=== PATIENT | male | born 1940 | race Caucasian/White ===

== ENCOUNTER 2023-06-08 22:11 | Inpatient (IN) | payer MEDICARE, OTHER, SELFPAY ==
[2023-06-08 18:29] VITALS: BP 119/73
--- NOTE | 2023-06-08 19:34 | ED.GENMED ---
History of Present Illness
General
Chief Complaint: Abnormal Lab Value
Source: patient and spouse
Exam Limitations: none
Time Seen by Provider: 06/08/23 18:56
Travel History
Have you had any contact with someone who has COVID-19?: No
Do you have any symptoms of coronavirus? Fever > 100 degrees, chills, cough, shortness of breath, sore throat, loss of taste or smell, muscle aches, or headache?: No
History of Present Illness
History of Present Illness:
This is a 83 year old male that comes in with c/o abnormal labs. States that he has routine labs done every Thursday as he see's his Oncologist on thursday. states that he was called and told that his Hgb is 6 and his Plt were. States that he also
had some bright red rectal bleeding today with his diarrhea. States that he does have hemorrhoids. Denies any fever, chills, chest pain, SOB, abd pain, nasuea, vomiting, headache, dizziness, urinary burning.
Past History
Past History
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 Pathologic rib fractures. ), GERD, Hypercholesterolemia, Hypothyroidism and Other (glaucoma, Anemia, emphysema, Hemorrhoids)
ED Past Surgical History: Orthopedic (Right shoulder surgery) and Other (Hernia, cataracts)
Social History
Tobacco: Former smoker
Alcohol: Occasional
Drug: None
Personal:
Living: with family
Employment: Retired
Family History
Family History: Other (Noncontributory)
Review of Systems
Review of Systems
All Other Systems: ROS reviewed and negative except as documented in HPI and ROS
Constitutional: Reports no symptoms; Denies fever or chills
EENT: Reports no symptoms
Respiratory: Denies cough or trouble breathing
Cardiac: Reports no symptoms; Denies chest pain
ABD/GI: Reports diarrhea and bloody stools (Right red blood); Denies abdominal pain, nausea or vomiting
: Reports no symptoms; Denies dysuria, frequency or urgency
Musculoskeletal: Reports no symptoms
Skin: Reports no symptoms
Neurological: Reports no symptoms; Denies dizzy or headache
Psychiatric: Reports no symptoms
Phy Exam
General Physical Exam
General Presentation: no apparent distress
General age: appears stated age
General Skin: warm, dry and pale
General Habitus: elderly
General Mental: alert
General Hydration: appears well hydrated
ENT Exam
ENT Exam: TM's normal, pharynx normal and neck supple
Eye Exam
Eye Exam: EOMI
Cardiovascular Exam
Cardiovascular Exam: regular rate/rhythm and normal peripheral pulses
Pulmonary Exam
Pulmonary Exam: no respiratory distress, no rales, chest non tender, no crackles, no rhonchi, no wheezing, no cough and decreased breath sounds (Bilaterally at bases)
Gastrointestinal Exam
Gastrointestinal Exam: normal bowel sounds, non tender, soft, no organomegaly, no pulsatile mass, non distended and other (Rectal exam hemorrhoid noted. Hem positive for bright red blood)
Musculoskeletal Exam
Musculoskeletal Exam: full ROM and edema (Slight lower leg edema +1)
Skin Exam
Skin Exam: warm/dry, no rash, pallor and other (slight Petechia noted on the right lower leg)
Psychiatric Exam
Psychiatric Exam: normal mood/affect
Course
Orders/Labs/Results
Orders:
Orders
06/08/23 19:10
* Blood Bank Products Urgent
Blood Bank Products: *Packed RBC Leuko(PRBC's)
Quantity: 2
Transfuse Today: Yes
Reason: Bleeding
06/08/23 19:11
IV Insert/Care/Rem.- Treatment PRN
06/08/23 19:25
Type And Crossmatch Urgent
Complete Blood Count/With Diff Urgent
Comprehensive Metabolic Panel Urgent
Prothrombin Time Urgent
Abnormal Lab Results
06/08/23
19:25
RBC 1.66 L 10^6/uL
(4.70-6.10)
Hgb 6.4 L* g/dL
(13.0-18.0)
Hct 18.2 L* %
(39.0-52.0)
MCV 109.6 H fL
(80.0-94.0)
MCH 38.6 H pg
(27.0-31.0)
RDW 19.5 H %
(11.5-14.5)
Plt Count 13 L* 10^3/uL
(130-400)
MPV 12.2 H fL
(7.4-10.4)
Abs Immat Gran (auto) 0.2 H 10^3/uL
(0-0.05)
Absolute Monos (auto) 0.8 H 10^3/uL
(0.1-0.6)
Absolute Eos (auto) 1.6 H 10^3/uL
(0-0.7)
Immature Gran % 2.1 H %
(0-0.5)
Monocytes % 11.0 H %
(1.7-9.3)
Eosinophils % 22.3 H %
(0-6)
PT 15.7 H Sec
(11.4-14.6)
Carbon Dioxide 21 L mmol/L
(22-30)
BUN 32 H mg/dl
(9-20)
Creatinine 1.4 H mg/dL
(0.7-1.3)
Glucose 117 H mg/dl
(70-99)
Total Protein 6.2 L g/dl
(6.3-8.2)
Albumin 3.0 L g/dl
(3.5-5.0)
06/08/23 19:25
06/08/23 19:25
RBC low, H/H very low, Anemia, thrombocytopenia, pt 15.7 with INR 1.27, Dehydration, Glucose nonfasting, Albumin slightly low.
Vital Signs
Initial and Last Documented VS:
Initial Vital Signs
Pulse Resp BP Pulse Ox
110 18 119/73 92
06/08/23 18:29 06/08/23 18:29 06/08/23 18:29 06/08/23 18:29
Last Documented Vital Signs
Pulse Resp BP Pulse Ox
97 24 109/52 98
06/08/23 20:45 06/08/23 20:45 06/08/23 20:00 06/08/23 20:45
MDM/Problems Addressed
Differential Diagnosis Includes:
Abnormal labs, Anemia,
MDM/Problems Addressed:
This is a 83 year old male that comes in with c/o abnormal labs. States that he has routine labs on Mondays as he see's the Oncologist on Thursday. States that he was called and told that he needed to come to the hospital as his labs were abnormal.
Will check labs and order PRB'C and admit patient.
Chronic conditions affecting care: Cancer
Acute Exacerbation and/or Progression of Chronic Illness: Cancer
*Critical Care Note
Total Time (30-74mins, 75-104mins- exclusive of procedures): Not Applicable
ED Attending Note
-
Portions of this chart may have been created with voice recognition software.� Occasional wrong word or��sound alike� substitutions may have occurred due to the inherent limitations of voice recognition software.
Discharge Plan
Departure
Patient Disposition: Admit
Date of Disposition: 06/08/23
Time of Disposition: 19:49
Admit to: Telemetry
Presentation/result/management discussed w/ accepting MD/DO: Hospitalist
Patient with high blood pressure during this ER visit?: No
Condition: Good
Covid-19: Not Applicable
Discharge Problem:
Thrombocytopenia, Low hemoglobin
Prescriptions:
No Action
latanoprost 1 DROP drops
1 drp BOTH EYES HS
Patient Comments:
both eyes
tamsulosin 0.4 MG capsule
0.8 mg PO HS
Hold Instructions: Resume on 03/20/23.
polyethylene glycol 3350 17 GRAMS powder in packet
17 grams PO DAILYPRN PRN (Reason: constipation)
finasteride 5 MG tablet
5 mg PO HS
sennosides [senna] 8.6 MG tablet
17.2 mg PO BIDPRN PRN (Reason: constipation)
docusate sodium 100 MG capsule
100 mg PO BIDPRN PRN (Reason: constipation)
aspirin 81 MG tablet,delayed release (DR/EC)
81 mg PO DAILY@1700
simvastatin 40 MG tablet
20 mg PO HS
carvedilol 6.25 mg Tablet
6.25 mg PO BID
acyclovir 400 mg tablet
400 mg PO BID
lorazepam 0.5 mg tablet
0.5 mg PO HS
Patient Comments:
06/08/2023: last filled 05/18/23, 60 tabs for 30 days from [facility]#[id number]
gabapentin 300 mg capsule
600 mg PO HS
dorzolamide-timolol 22.3-6.8 mg/mL drops
1 drp BOTH EYES BID
montelukast 10 mg tablet
10 mg PO USEASDIRECTD
Rx Instructions:
TAKE 1 TABLET THE NIGHT BEFORE, THE NIGHT OF, AND THE NIGHT AFTER EACH CHEMO TREATMENT
acetaminophen 325 mg Tablet
650 mg PO Q4HPRN PRN (Reason: mild pain/fever)
acetaminophen 500 mg Tablet
1,000 mg PO DAILYPRN PRN (Reason: prior to chemo)
B-complex with vitamin C Tablet
1 tab PO DAILY
fluticasone propion-salmeterol [Advair Diskus] 250-50 mcg/dose Blister With Device
1 inh INHALATION R BID
bortezomib [Velcade] 3.5 mg Recon Soln
3 mg SC Q21D
Rx Instructions:
gets every 21 days
cholecalciferol (vitamin D3) 25 mcg (1,000 unit) Tablet
25 mcg PO DAILY
calcium carbonate-vitamin D3 [Calcium 600 + D(3)] 600 mg-10 mcg (400 unit) Tablet
1 tab PO BID
ascorbic acid (vitamin C) [Vitamin C] 500 mg tablet
500 mg PO DAILY
Prolia 60 mg/mL Syringe
60 mg SC [id number]
furosemide 40 mg tablet
20 mg PO DAILY PRN (Reason: swelling)
dexamethasone 4 mg tablet
4 mg PO . DIRECTED
Rx Instructions:
Take 4-5 tabs (16-20mg) once before chemo
pantoprazole [Protonix] 40 mg tablet,delayed release (DR/EC)
40 mg PO DAILY@1700
Interventions
Interventions:
*Risk Screen - Suicide Last Done: 06/08/23 18:29
*General Assessment Last Done: 06/08/23 18:29
*Neglect/Abuse Screening Last Done: 06/08/23 18:29
ED- Fall Risk Assessment Last Done: 06/08/23 19:41
*ED COVID-19 Vaccine History Last Done: 06/08/23 18:29
[2023-06-08 19:40] LABS: % Basophils 0.3 % (0-2); % Eosinophils 22.3 % (0-6); % Immature Granulocytes 2.1 % (0-0.5); % Lymphocytes 21.6 % (20.5-51.1); % Neutrophils 42.7 % (42.2-75.2); Absolute Eosinophils 1.6 10^3/uL (0-0.7); Absolute Immature Granulocytes 0.2 10^3/uL (0-0.05); Absolute Lymphocytes 1.6 10^3/uL (1.2-3.4); Absolute Monocytes 0.8 10^3/uL (0.1-0.6); Absolute Neutrophils 3.1 10^3/uL (1.4-6.5); Mean Corp Hgb Conc. 35.2 g/dL (33.0-37.0); Mean Corpuscular Hgb 38.6 pg (27.0-31.0); Mean Corpuscular Volume 109.6 fL (80.0-94.0); Mean Platelet Volume 12.2 fL (7.4-10.4); Nucleated Red Blood Cells % 0 % (-); Red Blood Cell Count 1.66 10^6/uL (4.70-6.10); Red Cell Dist. Width 19.5 % (11.5-14.5); White Blood Cell Count 7.2 10^3/uL (4.8-10.8)
[2023-06-08 19:41] LABS: Hematocrit 18.2 % (39.0-52.0); Hemoglobin 6.4 g/dL (13.0-18.0); Platelet Count 13 10^3/uL (130-400)
[2023-06-08 19:47] LABS: INR 1.27; PT 15.7 Sec (11.4-14.6)
[2023-06-08 19:51] LABS: ALT (SGPT) 14 U/L (0-50); AST (SGOT) 30 U/L (17-59); Alkaline Phosphatase 61 U/L (38-126); Blood Urea Nitrogen 32 mg/dl (9-20); Calcium 8.6 mg/dl (8.4-10.2); Carbon Dioxide 21 mmol/L (22-30); Chloride 106 mmol/L (98-107); Glucose 117 mg/dl (70-99); Potassium 3.9 mmol/L (3.5-5.1); Sodium 136 mmol/L (135-145); Total Bilirubin 0.8 mg/dl (0.2-1.3); Total Protein 6.2 g/dl (6.3-8.2); eGFR 49.25
[2023-06-08 20:00] VITALS: BP 109/52
[2023-06-08 21:01] VITALS: BP 156/118
--- NOTE | 2023-06-08 21:33 | HPS.HSE ---
Addendum entered and electronically signed by Pao Adair DO 06/08/23 22:41:
The patient is seen and examined. I have reviewed the patient with Emily, reviewed and agree with her H & P, assessment and plan of care as per below.
VSS, respiratory status stable , AF
CV RRR, no m/r/g
Lungs CTA b/l no w/r/r
Abd soft, nt/nd
Labs reviewed as per below
Multiple myeloma
Marked anemia and thrombocytopenia, unable to transfuse tonight due to multiple antibodies for which blood bank is sending out more labs/discussing with [facility], and said blood will likely be available between 12 and 48 hours. Discussed with the
patient.
No signs of active bleeding, monitor for bleeding, transfuse platelets if signs or symptoms of bleeding, repeat CBC in am, Hematology consultation placed
Original Note:
Family Physician
-
Family Physician: Ady Diaz
Chief Complaint
-
Abnormal Labs
History of Present Illness
Pt is an 83yo M with a past medical history Multiple Myeloma, HTN, HLD, and hypothyroidism who is presenting to the ED after being called by his oncologist about abnormal lab values. The patient states that he has routine labs drawn weekly and sees
his oncologist every Thursday. He presented with a hemoglobin of 6.8 and thrombocytopenia. The patient also admits to having diarrhea this morning which he noted bright red blood in and states that he has hemorrhoids with occasional blood on toilet
paper. He denies shortness of breath, chest pain or dizziness.
Medical History
Past Medical History
Past Medical History: Reports Other
Additional Past Medical History:
Essential Hypertension
Hyperlipidemia
CKD Stage II
Multiple Myeloma
Chronic Thrombocytopenia
COPD
Lymphedema
Hypothyroidism
BPH
Glaucoma
Past Surgical History: Reports Other
Additional Past Surgical History:
Hernia Repair
Shoulder Surgery
Social History
Tobacco: Non-smoker
Alcohol: None
Drug: None
Family History
Family History: Not pertinent
Allergies / Home Medications
Allergies reflects when Allergies were last updated in [employer].
Home Medications with original date entered in [employer]
Allergy/Medication List:
Allergies
Allergy/AdvReac Type Severity Reaction Status Date / Time
No Known Allergies Allergy Verified 06/08/23 18:33
Home Medications
latanoprost 0.005 % eye drops 1 drp BOTH EYES HS Eye condition 09/09/21
tamsulosin 0.4 mg capsule 0.8 mg PO HS Urinary Issue 09/09/21
docusate sodium 100 mg capsule 100 mg PO BIDPRN PRN constipation 09/19/21
finasteride 5 mg tablet 5 mg PO HS Urinary Issue 09/19/21
polyethylene glycol 3350 17 gram oral powder packet 17 grams PO DAILYPRN PRN constipation 09/19/21
sennosides 8.6 mg tablet (senna) 17.2 mg PO BIDPRN PRN constipation 09/19/21
aspirin 81 mg tablet,delayed release 81 mg PO DAILY@1700 Blood Clot Prevention/Tx 10/16/21
simvastatin 40 mg tablet 20 mg PO HS High Cholesterol 10/16/21
carvedilol 6.25 mg tablet 6.25 mg PO BID Blood Pressure 02/20/22
B-complex with vitamin C 1 tab PO DAILY Supplement 03/14/23
acetaminophen 325 mg tablet 650 mg PO Q4HPRN PRN mild pain/fever 03/14/23
acetaminophen 500 mg tablet 1,000 mg PO DAILYPRN PRN prior to chemo 03/14/23
acyclovir 400 mg tablet 400 mg PO BID prophylaxis for herpes zoster 03/14/23
dorzolamide 22.3 mg-timolol 6.8 mg/mL eye drops 1 drp BOTH EYES BID Eye Condition 03/14/23
gabapentin 300 mg capsule 600 mg PO HS Pain 03/14/23
lorazepam 0.5 mg tablet 0.5 mg PO HS 03/14/23
montelukast 10 mg tablet 10 mg PO USEASDIRECTD Lung/Breathing Issues 03/14/23
ascorbic acid (vitamin C) 500 mg tablet (Vitamin C) 500 mg PO DAILY Supplement 04/18/23
bortezomib 3.5 mg injection powder for solution (Velcade) 3 mg SC Q21D multiple myeloma 04/18/23
calcium carbonate 600 mg-vitamin D3 10 mcg (400 unit) tablet (Calcium 600 + D(3)) 1 tab PO BID Supplement 04/18/23
cholecalciferol (vitamin D3) 25 mcg (1,000 unit) tablet 25 mcg PO DAILY Supplement 04/18/23
denosumab 60 mg/mL subcutaneous syringe (Prolia) 60 mg SC [id number] multiple myeloma 04/18/23
fluticasone 250 mcg-salmeterol 50 mcg/dose blistr powdr for inhalation (Advair Diskus) 1 inh inhalation R BID Lung/Breathing Issues 04/18/23
dexamethasone 4 mg tablet 4 mg PO . DIRECTED 06/08/23
furosemide 40 mg tablet 20 mg PO DAILY PRN swelling 06/08/23
pantoprazole 40 mg tablet,delayed release (Protonix) 40 mg PO DAILY@1700 06/08/23
Review of Systems
-
A 12 point ROS was completed and negative except as noted: Yes
Constitutional: Denies Fever or Chills
Respiratory: Denies Cough or Trouble Breathing
Cardiac: Denies Chest Pain or Palpitations
Abdomen/GI: Reports Diarrhea (One episode this morning); Denies Abdominal Pain, Nausea or Vomiting
Physical Exam
Vital Signs
Vital Signs
Pulse Resp BP Pulse Ox
93 21 156/118 96
06/08/23 21:15 06/08/23 21:15 06/08/23 21:01 06/08/23 21:15
Physical Exam
General: Comfortable and Conversant
HEENT: Anicteric and Moist mucous membranes
Respiratory: Clear and Non Labored Respirations
Cardiac: S1/S2 and Regular Rhythm
GI: Soft and Non Tender
Musculoskeletal: No Clubbing, No Cyanosis and Other (+1 pitting edema bilateral lower extremities)
Skin: Warm and Dry
Neuro: Awake, Alert, Oriented and Nonfocal/grossly intact
Laboratory Results
-
06/08/23 19:25
06/08/23:
Laboratory Results
PT 15.7 Sec (11.4-14.6) H 06/08/23:
INR 1.27 06/08/23:25
Total Bilirubin 0.8 mg/dl (0.2-1.3) 06/08/23:
AST 30 U/L (17-59) 06/08/23:
ALT 14 U/L (0-50) 06/08/23:
Alkaline Phosphatase 61 U/L (38-126) 06/08/23:
Data Reviewed
-
Lab Data: Labs Reviewed by me
Old Records: Reviewed
Impression/Plan
-
Acute on Chronic Anemia
Acute on Chronic Thrombocytopenia
-Consult Oncology/Hematology
-Transfuse 2 units PRBCs
-Recheck Hgb in AM
-Hold aspirin due to worsening thrombocytopenia
Lower Extremity Edema
-Give dose of Lasix between units of blood
CKD Stage II
-Creatinine slightly above baseline, possibly due to mild overload
-Recheck creatinine in AM
Essential Hypertension
-Continue Coreg with hold parameters
Hyperlipidemia
-Continue atorvastatin in place of simvastatin
Multiple Myeloma
-Continue acyclovir for prophylaxis
-Patient maintained on Velcade as outpatient
COPD, no acute exacerbation
-Continue Advair
Neuropathy
-Continue Gabapentin
GERD
-Continue Protonix
BPH
-Continue Flomax and Proscar
Glaucoma
-Continue dorzolamide/timolol
DVT proph: SCDs
Code Status: Full Code
[2023-06-08 22:00] VITALS: BP 198/169
[2023-06-08 22:04] LABS: Iron 176 ug/dl (49-181)
[2023-06-08 22:14] LABS: Percent Saturation 80 % (20-50); Total Iron Binding Capacity 218 ug/dl (261-462)
[2023-06-08 23:07] VITALS: BP 118/68; BMI 24.7
[2023-06-08] MEDS: FLOMAX 0.800000000000000044 MG PO (23:39)
[2023-06-08] MEDS: NEURONTIN 600 MG PO (23:39)
[2023-06-08] MEDS: ATIVAN 0.5 MG PO (23:39)
[2023-06-08] MEDS: LIPITOR 10 MG PO (23:39)
[2023-06-08] MEDS: PROSCAR 5 MG PO (23:39)
[2023-06-08] MEDS: XALATAN OPHTHALMIC SOLUTION 1 DROP BOTH EYES (23:40)
[2023-06-09] VITALS (16 sets, daily range): BP systolic 93–125; BP diastolic 42–64; BMI 24.7
[2023-06-09 00:20] LABS: Folate > 20.0 ng/ml (2.76-20); Vitamin B12 355 pg/ml (239-931)
[2023-06-09 06:20] LABS: Mean Corp Hgb Conc. 33.1 g/dL (33.0-37.0); Mean Corpuscular Hgb 37.3 pg (27.0-31.0); Mean Corpuscular Volume 112.7 fL (80.0-94.0); Mean Platelet Volume 12.6 fL (7.4-10.4); Red Blood Cell Count 1.42 10^6/uL (4.70-6.10); Red Cell Dist. Width 19.4 % (11.5-14.5); White Blood Cell Count 4.9 10^3/uL (4.8-10.8)
[2023-06-09 06:34] LABS: Hemoglobin 5.3 g/dL (13.0-18.0); Platelet Count 11 10^3/uL (130-400)
--- NOTE | 2023-06-09 06:36 | PTCARENOTE ---
Addendum entered by Laurie Francis RN 06/09/23 06:40:
Spoke with Octavia in [facility], no estimated time of arrival for PRBC at this time
Original Note:
KELLIE Rose made aware of critical lab results. No signs of active bleeding.
Awaiting 2 units of PRBC from [facility]
[2023-06-09 06:42] LABS: Blood Urea Nitrogen 31 mg/dl (9-20); Calcium 8.2 mg/dl (8.4-10.2); Carbon Dioxide 23 mmol/L (22-30); Chloride 108 mmol/L (98-107); Estimated Creatinine Clearance 30 ml/min; Glucose 109 mg/dl (70-99); Potassium 3.6 mmol/L (3.5-5.1); Sodium 138 mmol/L (135-145); eGFR 41.96
--- NOTE | 2023-06-09 08:18 | PTCARENOTE ---
assumed care of pt, AOx3, critical HGB and platelets this AM. Attending placing orders for transfer to higher level of care. pt is awake and alert, offers no complaints other than fatigue. obtaining IMU bed
[2023-06-09] MEDS: ADVAIR HFA 115/21 MCG INHALER 2 PUFF INH (08:24)
[2023-06-09 08:55] LABS: INR 1.27; PT 15.7 Sec (11.4-14.6)
[2023-06-09] MEDS: COREG PO ×2 (08:55→19:47)
[2023-06-09 08:56] LABS: APTT 28.3 Sec (23.4-35.0); Fibrinogen 277 MG/DL (199-459)
[2023-06-09] MEDS: VITAMIN D3 (cholecalciferol) 25 MCG PO (08:56)
[2023-06-09] MEDS: OSCAL 500 + D 500 MG PO ×2 (08:56→19:47)
[2023-06-09] MEDS: ZOVIRAX 400 MG PO ×2 (08:56→19:47)
[2023-06-09] MEDS: COSOPT EYE DROPS 1 DROP BOTH EYES ×2 (08:57→19:48)
--- NOTE | 2023-06-09 09:11 | CM ---
Alert awake oriented patient who lives with his Leslie who lives in a 1 story home with 3 step to enter and bed and bathroom on first floor.Spoke with daughter Na for history. He is independent in driving and in all activities of daily
living.He has a transport wheelchair, rollator,and cane.Pt to be transferred to ICU. Na indicates pt will probably go home but unsure on VN acceptance.
[facility] hx / No SNF history
Pharmacy [address]
PCP DR Diaz
PLAN Will depend on hospital course of care.
--- NOTE | 2023-06-09 11:18 | PTCARENOTE ---
Received patient on transfer from [facility] via wheelchair; ambulated without difficulty from w/c to bed. Denies dizziness or shortness of breath. POx 97% on 2l n/c; BP 116/62, HR 91, NSR on monitor. Oriented to room and surroundings; instructed in call
elam system and to not get OOB without assistance. Patient verbalized understanding; no questions at this time. Still await PRBCs.
--- NOTE | 2023-06-09 13:47 | W.PN.HOSP.TC ---
Today's Communication/Plan
-
Awaiting blood products, should be available within the next 12 to 24 hours
Patient otherwise doing relatively well
Appreciate hematology recommendations
Fecal occult blood test
Assessment / Plan
Assessment / Plan
Physical Exam
General: Comfortable and Conversant
HEENT: Normocephalic and Moist mucous membranes
Respiratory: Clear and Non Labored Respirations
Cardiac: S1/S2 and Regular Rhythm
GI: Soft and Non Tender. Positive bowel sounds.
Musculoskeletal: No Clubbing, No Cyanosis and Other (+1 pitting edema bilateral lower extremities)
Skin: Warm and Dry
Neuro: Awake, Alert, Oriented and Nonfocal/grossly intact

Acute on Chronic Anemia
Acute on Chronic Thrombocytopenia
-Consulted Oncology/Hematology, recommendations appreciated
-Order for 2 units PRBCs placed
-Ordered 1 unit of platelets after discussing the details of platelet transfusion (including type of platelets) with Dr. Holt
-Patient was unable to transfuse blood on admission due to multiple antibodies for which blood bank was sending out more labs/discussing with [facility] --> I called Blood Bank this afternoon and they said blood should be ready within the next 12 to
24 hours
-No signs of active bleeding at this time, monitor for bleeding
-Recheck Hgb in AM/monitor CBC
-Hold aspirin due to worsening thrombocytopenia
Lower Extremity Edema
-Give dose of Lasix between units of blood
CKD Stage II
-Creatinine slightly above baseline, possibly due to mild overload
-Recheck creatinine in AM
Essential Hypertension
-Continue Coreg with hold parameters
Hyperlipidemia
-Continue atorvastatin in place of simvastatin
Multiple Myeloma
-Continue acyclovir for prophylaxis
-Patient maintained on Velcade as outpatient
COPD, no acute exacerbation
-Continue Advair
Neuropathy
-Continue Gabapentin
GERD
-Continue Protonix
BPH
-Continue Flomax and Proscar
Glaucoma
-Continue dorzolamide/timolol
DVT proph: SCDs
Code Status: Full Code
Anticipated Discharge: > 48 hours
Subjective/Interval History
-
Date of Service: June 09, 2023
Patient was seen and examined. At the time of patient encounter, he was ambulating in his room with a cane, and denied any significant complaints, except for fatigue.
Objective Data
-
Labs:
Laboratory Results
06/09/23 06/09/23
05:19 08:33
WBC 4.9
Hgb 5.3 L*
Hct 16.0 L*
Plt Count 11 L*
PT 15.7 H
INR 1.27
APTT 28.3
Sodium 138
Potassium 3.6
Chloride 108 H
Carbon Dioxide 23
BUN 31 H
Creatinine 1.6 H
Glucose 109 H
Calcium 8.2 L
Vital Signs:
Vital Signs
Temp Pulse Resp BP Pulse Ox
97.6 F 111 16 99/53 90
06/09/23 11:19 06/09/23 08:29 06/09/23 08:29 06/09/23 07:00 06/09/23 08:29
I&O
06/08/23 06/09/23 06/10/23
06:59 06:59 06:59
Intake Total 240 / 240
Balance 240 / 240
--- NOTE | 2023-06-09 15:07 | PTCARENOTE ---
Platelets ordered by Dr Loera; notified him via tiger text that there is no consent on chart or scanned in to record. Transfusion consent form with patient label at community health program coordinator desk per Dr Loera request. Still await PRBCs.
--- NOTE | 2023-06-09 16:00 | CON.ONC ---
Impression
Impression
Relapsing plasma cell leukemia
Plan
Plan
transfusion support-- SDP for plt count <20--please recheck increment in 30 min after infusion to assure response -- pRBCs to achieve hgb 7-8gm dl--when stable would consider next therapeutic steps
Patient History
History of Present Illness
83yo WM sent to ER for new pancytopenia likely related to POD following cycle #10 05/13/2023 Daratumumab/ Revlimid/ predn in progress of changing to Pomalyst due to refractory cytopenias felt secondary to Revlimid. He cannot recall having received
pRBC transfusions in the past -- he is admitted to ICU for close mnitoring until least incompatible units available.
Mr. Pike was in ER on 08/14/21 with left sided pain that started after he was picking up several heavy bags of mulch. Imaging showed fracture of left 6th and 7th ribs. CBC was notable for mild leukopenia with white count 4.6, platelets 69,000.
He had CT C/A/P that was relatively unremarkable. No lytic bone lesions noted on CT scan. Calcium, creatinine within normal range. hgb mildly low at 11.7 g/dl, normocytic. Pt denied weight loss, excessive fatigue, night sweats. Review of prior labs
show normal platelet count in September 2020 at 180,000.Additional lab work-up included SPEP which showed M spike of 3.1 with both IgG lambda and IgG kappa monoclonal bands, serum free light chains showed a kappa of 187.8, lambda 41.8 with ratio of 4.49,
serum IgG levels elevated at 6871. Beta-2 microglobulin 9.69, hemoglobin was 10.8 g/dL, platelets 49,000, white count was normal at 4.3. ESR elevated at 119, reticulocyte count inappropriately low at 0.6%. Creatinine was 1.72.
Shortly after having lab work done he presented to [facility] on 09/07/11 due to persistent left-sided rib pain. Our team was consulted and lab results were discussed with the patient. Outpatient bone marrow biopsy was arranged and
completed on 09/10/2021, results revealed greater than 90% bone marrow involvement with plasma cells. Peripheral flow cytometry was also significant for 20% plasma cell involvement in the peripheral blood consistent with plasma cell leukemia.
Past-Medical/Surgical History
Glaucoma
High cholesterol
Patient Medication
Medication Instructions Recorded Confirmed Last Taken Type
latanoprost 0.005 % eye drops 1 drp BOTH EYES HS Eye condition 09/09/21 06/08/23 06/07/23 History
tamsulosin 0.4 mg capsule 0.8 mg PO HS Urinary Issue 09/09/21 06/08/23 06/07/23 History
docusate sodium 100 mg capsule 100 mg PO BIDPRN PRN constipation 09/19/21 06/08/23 10/16/21 History
finasteride 5 mg tablet 5 mg PO HS Urinary Issue 09/19/21 06/08/23 06/07/23 History
polyethylene glycol 3350 17 gram 17 grams PO DAILYPRN PRN 09/19/21 06/08/23 Unknown History
oral powder packet constipation
sennosides 8.6 mg tablet (senna) 17.2 mg PO BIDPRN PRN constipation 09/19/21 06/08/23 02/20/22 History
aspirin 81 mg tablet,delayed 81 mg PO DAILY@1700 Blood Clot 10/16/21 06/08/23 06/07/23 History
release Prevention/Tx
simvastatin 40 mg tablet 20 mg PO HS High Cholesterol 10/16/21 06/08/23 06/07/23 History
carvedilol 6.25 mg tablet 6.25 mg PO BID Blood Pressure 02/20/22 06/08/23 06/08/23 History
B-complex with vitamin C 1 tab PO DAILY Supplement 03/14/23 06/08/23 06/08/23 History
acetaminophen 325 mg tablet 650 mg PO Q4HPRN PRN mild 03/14/23 06/08/23 Unknown History
pain/fever
acetaminophen 500 mg tablet 1,000 mg PO DAILYPRN PRN prior to 03/14/23 06/08/23 Unknown History
chemo
acyclovir 400 mg tablet 400 mg PO BID prophylaxis for 03/14/23 06/08/23 06/08/23 History
herpes zoster
dorzolamide 22.3 mg-timolol 6.8 1 drp BOTH EYES BID Eye Condition 03/14/23 06/08/23 06/08/23 History
mg/mL eye drops
gabapentin 300 mg capsule 600 mg PO HS Pain 03/14/23 06/08/23 2 Weeks Ago History
~05/25/23
lorazepam 0.5 mg tablet 0.5 mg PO HS mental health/sleep 03/14/23 06/08/23 06/07/23 History
montelukast 10 mg tablet 10 mg PO USEASDIRECTD 03/14/23 06/08/23 03/12/23 History
Lung/Breathing Issues
ascorbic acid (vitamin C) 500 mg 500 mg PO DAILY Supplement 04/18/23 06/08/23 06/08/23 History
tablet (Vitamin C)
bortezomib 3.5 mg injection powder 3 mg SC Q21D multiple myeloma 04/18/23 06/08/23 2 Weeks Ago History
for solution (Velcade) ~05/25/23
calcium carbonate 600 mg-vitamin 1 tab PO BID Supplement 04/18/23 06/08/23 06/08/23 History
D3 10 mcg (400 unit) tablet
(Calcium 600 + D(3))
cholecalciferol (vitamin D3) 25 25 mcg PO DAILY Supplement 04/18/23 06/08/23 06/08/23 History
mcg (1,000 unit) tablet
denosumab 60 mg/mL subcutaneous 60 mg SC [id number] multiple myeloma 04/18/23 06/08/23 Unknown History
syringe (Prolia)
fluticasone 250 mcg-salmeterol 50 1 inh inhalation R BID 04/18/23 06/08/23 06/08/23 History
mcg/dose blistr powdr for Lung/Breathing Issues
inhalation (Advair Diskus)
dexamethasone 4 mg tablet 4 mg PO . DIRECTED 06/08/23 06/08/23 Unknown History
Anti-Inflammatory
furosemide 40 mg tablet 20 mg PO DAILY PRN swelling 06/08/23 06/08/23 05/31/23 History
pantoprazole 40 mg tablet,delayed 40 mg PO DAILY@1700 06/08/23 06/08/23 06/07/23 History
release (Protonix) Gastrointestinal Issue
Active Medications
Generic Name Dose Route Start Last Admin
Trade Name Freq PRN Reason Stop Dose Admin
Acetaminophen 650 mg 06/08/23 22:56
Acetaminophen 325 Mg Tablet PO 07/06/23 22:55
Q4HPRN PRN
mild pain/fever
Acyclovir Sodium 400 mg 06/09/23 08:00 06/09/23 08:56
Acyclovir Sodium 200 Mg Capsule PO 06/19/23 07:59 400 mg
BID CHIRAG Administration
Atorvastatin Calcium 10 mg 06/08/23 23:15 06/08/23 23:39
Atorvastatin (Lipitor) 10 Mg Tablet PO 07/06/23 23:14 10 mg
HS CHIRAG Administration
Calcium/Vitamin D 500 mg 06/09/23 08:00 06/09/23 08:56
Calcium Carbonate 500 Mg/Vitamin D 5 Mcg (200 Units) Tablet PO 07/07/23 07:59 500 mg
BID CHIRAG Administration
Carvedilol 6.25 mg 06/09/23 08:00 06/09/23 08:55
Carvedilol 6.25 Mg Tablet PO 07/07/23 07:59 Not Given
BID CHIRAG
Cholecalciferol 25 mcg 06/09/23 08:00 06/09/23 08:56
Cholecalciferol (Vitamin D3) 25 Mcg Tablet (1,000 Units) PO 07/07/23 07:59 25 mcg
DAILY CHIRAG Administration
Dorzolamide/Timolol 0 drop 06/09/23 08:00 06/09/23 08:57
Dorzolamide/Timolol (Ophth Soln.) 10 Ml Bottle BOTH EYES 07/07/23 07:59 1 drop
BID CHIRAG Administration
Finasteride 5 mg 06/08/23 22:56 06/08/23 23:39
Finasteride 5 Mg Tablet PO 07/06/23 22:55 5 mg
HS CHIRAG Administration
Furosemide 40 mg 06/08/23 21:29
Furosemide 40 Mg (10 Mg/Ml) 4 Ml Vial IV
ONCE PRN
Give between units of blood
Gabapentin 600 mg 06/08/23 22:56 06/08/23 23:39
Gabapentin 300 Mg Capsule PO 07/06/23 22:55 600 mg
HS CHIRAG Administration
Latanoprost 0 drop 06/08/23 22:56 06/08/23 23:40
Latanoprost 0.005% (Ophthalmic Solution) 2.5 Ml Bottle BOTH EYES 07/06/23 22:55 1 drop
HS CHIRAG Administration
Lorazepam 0.5 mg 06/08/23 22:56 06/08/23 23:39
Lorazepam 0.5 Mg Tablet PO 07/06/23 22:55 0.5 mg
HS CHIRAG Administration
Pantoprazole Sodium 40 mg 06/09/23 17:00
Pantoprazole 40 Mg Delayed Release Tablet PO 07/07/23 16:59
DAILY@1700 CHIRAG
Fluticasone/Salmeterol 2 puff 06/09/23 08:00 06/09/23 08:24
Advair Hfa 115/21 Inhaler INH 07/07/23 07:59 2 puff
R BID CHIRAG Administration
Sodium Chloride 0 flush 06/08/23 23:00
Sodium Chloride 0.9% (Flush) Syringe IV 07/06/23 22:59
PER PROTOCOL CHIRAG
Tamsulosin HCl 0.8 mg 06/08/23 22:56 06/08/23 23:39
Tamsulosin 0.4 Mg Capsule PO 07/06/23 22:55 0.8 mg
HS CHIRAG Administration
Review of Systems
-
History Source: Patient
All Other Systems: Reviewed and Negative (other than for overwhelming fatigue w/o overt signs of bleeding)
Physical Exam
-
General: Appears Chronically Ill
HEENT: Moist Mucous Membranes
Cardiology: Normal Sinus Rhythm
Pulmonary: Clear
GI: Soft and Flat
Musculoskeletal: No Clubbing, No Cyanosis and No Edema
Labs
Lab Results
WBC 4.9 10^3/uL (4.8-10.8) 06/09/23 05:19
RBC 1.42 10^6/uL (4.70-6.10) L 06/09/23 05:19
Hgb 5.3 g/dL (13.0-18.0) L* 06/09/23 05:19
Hct 16.0 % (39.0-52.0) L* 06/09/23 05:19
MCV 112.7 fL (80.0-94.0) H 06/09/23 05:19
MCH 37.3 pg (27.0-31.0) H 06/09/23 05:19
MCHC 33.1 g/dL (33.0-37.0) 06/09/23 05:19
RDW 19.4 % (11.5-14.5) H 06/09/23 05:19
Plt Count 11 10^3/uL (130-400) L* 06/09/23 05:19
MPV 12.6 fL (7.4-10.4) H 06/09/23 05:19
Abs Immat Gran (auto) 0.2 10^3/uL (0-0.05) H 06/08/23 19:25
Absolute Neuts (auto) 3.1 10^3/uL (1.4-6.5) 06/08/23 19:25
Absolute Lymphs (auto) 1.6 10^3/uL (1.2-3.4) 06/08/23 19:25
Absolute Monos (auto) 0.8 10^3/uL (0.1-0.6) H 06/08/23 19:25
Absolute Eos (auto) 1.6 10^3/uL (0-0.7) H 06/08/23 19:25
Absolute Basos (auto) 0.0 10^3/uL (0-0.2) 06/08/23 19:25
Immature Gran % 2.1 % (0-0.5) H 06/08/23 19:25
Neutrophils % 42.7 % (42.2-75.2) 06/08/23:
Lymphocytes % 21.6 % (20.5-51.1) 06/08/23:
Monocytes % 11.0 % (1.7-9.3) H 06/08/23 19:25
Eosinophils % 22.3 % (0-6) H 06/08/23 19:25
Basophils % 0.3 % (0-2) 06/08/23 19:
Creatinine 1.6 mg/dL (0.7-1.3) H 06/09/23 05:19
Vital Signs
Vital Signs
Temp Pulse Resp BP Pulse Ox
97.8 F 84 16 99/54 94
06/09/23 15:56 06/09/23 14:00 06/09/23 14:00 06/09/23 14:00 06/09/23 14:00
[2023-06-09] MEDS: PROTONIX 40 MG PO (17:21)
[2023-06-09] MEDS: ADVAIR HFA 115/21 MCG INHALER INH (19:35)
[2023-06-09] MEDS: XALATAN OPHTHALMIC SOLUTION 1 DROP BOTH EYES (19:48)
--- NOTE | 2023-06-09 20:31 | PTCARENOTE ---
Received pt from [facility]. Pt is AAOx3, BARBRA. NSR on the monitor. On 2L NC O2 sat 95%, lungs diminished. BRPx1. Awaiting blood from blood bank. Pt is laying comfortable in bed with call elam in reach.
[2023-06-09] MEDS: FLOMAX 0.800000000000000044 MG PO (21:51)
[2023-06-09] MEDS: LIPITOR 10 MG PO (21:52)
[2023-06-09] MEDS: ATIVAN 0.5 MG PO (21:52)
[2023-06-09] MEDS: NEURONTIN 600 MG PO (21:52)
[2023-06-09] MEDS: PROSCAR 5 MG PO (21:52)
[2023-06-10] VITALS (21 sets, daily range): BP systolic 91–126; BP diastolic 49–78; BMI 25.1
--- NOTE | 2023-06-10 05:16 | PTCARENOTE ---
Blood bank called PRBCs arrived, least incompatible blood release form needs to be signed prior to PRBCs being released. KELLIE Rich notified, release form signed and sent back to blood bank.
--- NOTE | 2023-06-10 06:02 | PTCARENOTE ---
1st unit of PRBCs infusing. 15 min VS check complete, pt tolerating transfusion.
[2023-06-10] MEDS: COSOPT EYE DROPS 1 DROP BOTH EYES ×2 (08:07→20:13)
[2023-06-10] MEDS: ZOVIRAX 400 MG PO ×2 (08:12→20:12)
[2023-06-10] MEDS: VITAMIN D3 (cholecalciferol) 25 MCG PO (08:12)
[2023-06-10] MEDS: OSCAL 500 + D 500 MG PO ×2 (08:12→20:12)
[2023-06-10] MEDS: COREG PO ×2 (08:15→20:14)
[2023-06-10] MEDS: ADVAIR HFA 115/21 MCG INHALER INH ×2 (08:23→19:31)
--- NOTE | 2023-06-10 10:14 | W.PN.ONC2 ---
Today's Communication / Plan
-
Await F/U CBC post transfusions.
Impression
Impression
Relapsing plasma cell leukemia
multiple antibodies requiring [place] transfusion support and delays
Plan
Plan
transfusion support-- SDP for plt count <20--please recheck increment in 30 min after infusion to assure response -- pRBCs to achieve hgb 7-8gm dl--when stable would consider next therapeutic steps
Subjective/Objective
Chief Complaint
ACS Heme Onc
Subjective
Feels fine. Getting PRBC transfusion. No bleeding.
Vital Signs:
Vital Signs
Temp Pulse Resp BP Pulse Ox
97.7 F 86 27 109/63 97
06/10/23 09:17 06/10/23 10:10 06/10/23 10:10 06/10/23 10:10 06/10/23 10:10
Lab Results:
Laboratory Data
WBC 4.9 10^3/uL (4.8-10.8) 06/09/23 05:19
Hgb 5.3 g/dL (13.0-18.0) L* 06/09/23 05:19
Plt Count 11 10^3/uL (130-400) L* 06/09/23 05:19
PT 15.7 Sec (11.4-14.6) H 06/09/23 08:33
INR 1.27 06/09/23 08:33
APTT 28.3 Sec (23.4-35.0) 06/09/23 08:33
eGFR 41.96 06/09/23 05:19
Physical Exam
HEENT: No Jaundice
Cardiology: S1 and S2
Pulmonary: Clear
--- NOTE | 2023-06-10 11:37 | PTCARENOTE ---
The first of two units of PRBC concluded infusing while I assumed care this AM 06/10. Second unit infused without difficulty. Pt V/S stable throughout infusion. Pt ordered SCDs, RN promoted wearing them however Pt refused, Pt was educated upon
reasoning for device. Pt currently AOAx4, resting in bed and watching tv, consumed 95% of breakfast. Please see worklist for full Pt assessment. Pt also reminded several times to notify staff before ambulating to the restroom for assistance, however
Pt has made multiple attempts to stand at bedside prior to notifying staff, also during blood infusion. Bed alarm activated for safety.
[2023-06-10 15:03] LABS: % Basophils 0.2 % (0-2); % Eosinophils 22.4 % (0-6); % Immature Granulocytes 4.4 % (0-0.5); % Lymphocytes 21.4 % (20.5-51.1); % Monocytes 9.7 % (1.7-9.3); % Neutrophils 41.9 % (42.2-75.2); ALT (SGPT) 13 U/L (0-50); AST (SGOT) 22 U/L (17-59); Absolute Eosinophils 1.3 10^3/uL (0-0.7); Absolute Immature Granulocytes 0.3 10^3/uL (0-0.05); Absolute Lymphocytes 1.3 10^3/uL (1.2-3.4); Absolute Monocytes 0.6 10^3/uL (0.1-0.6); Absolute Neutrophils 2.5 10^3/uL (1.4-6.5); Albumin 2.9 g/dl (3.5-5.0); Alkaline Phosphatase 63 U/L (38-126); Blood Urea Nitrogen 23 mg/dl (9-20); Calcium 8.3 mg/dl (8.4-10.2); Carbon Dioxide 24 mmol/L (22-30); Chloride 109 mmol/L (98-107); Estimated Creatinine Clearance 35 ml/min; Glucose 139 mg/dl (70-99); Hematocrit 21.9 % (39.0-52.0); Mean Corp Hgb Conc. 34.2 g/dL (33.0-37.0); Mean Corpuscular Hgb 33.2 pg (27.0-31.0); Mean Corpuscular Volume 96.9 fL (80.0-94.0); Mean Platelet Volume 11.4 fL (7.4-10.4); Nucleated Red Blood Cells % 0 % (-); Potassium 3.8 mmol/L (3.5-5.1); Red Blood Cell Count 2.26 10^6/uL (4.70-6.10); Sodium 136 mmol/L (135-145); Total Bilirubin 0.7 mg/dl (0.2-1.3); Total Protein 6.1 g/dl (6.3-8.2); White Blood Cell Count 5.9 10^3/uL (4.8-10.8); eGFR 49.25
[2023-06-10 15:10] LABS: Hemoglobin 7.5 g/dL (13.0-18.0)
[2023-06-10 15:11] LABS: Platelet Count 28 10^3/uL (130-400)
[2023-06-10 16:25] LABS: Anisocytosis 1+; Macrocytosis 1+; Normal RBC Morphology No
[2023-06-10 16:26] LABS: Ovalocytes Slight; Poikilocytosis Slight
[2023-06-10] MEDS: PROTONIX 40 MG PO (18:01)
--- NOTE | 2023-06-10 18:59 | PTCARENOTE ---
Follow up h&h post transfusion7.7/21.[address] Loera notified via tiger text.
--- NOTE | 2023-06-10 19:42 | W.PN.HOSP.TC ---
Today's Communication/Plan
-
Platelets and RBCs transfused with good improvement in the Hgb and platelets
Assessment / Plan
Assessment / Plan
Physical Exam
General: Comfortable and Conversant
HEENT: Normocephalic and Moist mucous membranes
Respiratory: Clear and Non Labored Respirations
Cardiac: S1/S2 and Regular Rhythm
GI: Soft and Non Tender. Positive bowel sounds.
Musculoskeletal: No Clubbing, No Cyanosis and Other (+1 pitting edema bilateral lower extremities)
Skin: Warm and Dry
Neuro: Awake, Alert, Oriented and Nonfocal/grossly intact

Acute on Chronic Anemia
Acute on Chronic Thrombocytopenia
-Consulted Oncology/Hematology, recommendations appreciated
-Order for 2 units PRBCs placed: 2 units of PRBCs transfused on June 10, 2023
-Ordered 1 unit of platelets after discussing (on 06/09/23) the details of platelet transfusion (including type of platelets) with Dr. Holt: 1 unit of platelets transfused on 06/09/23
-Patient was unable to transfused blood right away on admission due to multiple antibodies for which blood bank was sending out more labs/discussing with [place]
-No signs of active bleeding at this time, monitor for bleeding
-Recheck Hgb in AM/monitor CBC
-Hold aspirin due to thrombocytopenia
Lower Extremity Edema
-Can give dose of Lasix between units of blood if needed
CKD Stage II
-Creatinine slightly above baseline, possibly due to mild overload
-Recheck creatinine in AM
Essential Hypertension
-Continue Coreg with hold parameters
Hyperlipidemia
-Continue atorvastatin in place of simvastatin
Multiple Myeloma
-Continue acyclovir for prophylaxis
-Patient maintained on Velcade as outpatient
COPD, no acute exacerbation
-Continue Advair
Neuropathy
-Continue Gabapentin
GERD
-Continue Protonix
BPH
-Continue Flomax and Proscar
Glaucoma
-Continue dorzolamide/timolol
DVT proph: SCDs
Code Status: Full Code
Anticipated Discharge: > 48 hours
Subjective/Interval History
-
Date of Service: June 10, 2023
Patient was seen and examined. He mentioned that he was doing fine, and denied dizziness, chest pain or shortness of breath.
Objective Data
-
Labs:
Laboratory Results
06/10/23
14:41
WBC 5.9
Hgb 7.5 L D
Hct 21.9 L
Plt Count 28 L* D
Sodium 136
Potassium 3.8
Chloride 109 H
Carbon Dioxide 24
BUN 23 H
Creatinine 1.4 H
Glucose 139 H
Calcium 8.3 L
Total Bilirubin 0.7
AST 22
ALT 13
Alkaline Phosphatase 63
Vital Signs:
Vital Signs
Temp Pulse Resp BP Pulse Ox
98.7 F 96 22 126/69 98
06/10/23 15:13 06/10/23 18:00 06/10/23 18:00 06/10/23 18:00 06/10/23 18:00
I&O
06/09/23 06/10/23 06/11/23
06:59 06:59 06:59
Intake Total 240 / 240 1624 / 1624 1060 / 1060
Output Total 850 / 850 300 / 300
Balance 240 / 240 774 / 774 760 / 760
[2023-06-10] MEDS: PROSCAR 5 MG PO (20:12)
[2023-06-10] MEDS: XALATAN OPHTHALMIC SOLUTION 1 DROP BOTH EYES (20:12)
[2023-06-10] MEDS: FLOMAX 0.800000000000000044 MG PO (20:12)
[2023-06-10] MEDS: LIPITOR 10 MG PO (20:12)
[2023-06-10] MEDS: ATIVAN 0.5 MG PO (20:12)
[2023-06-10] MEDS: NEURONTIN 600 MG PO (20:12)
[2023-06-11] VITALS (30 sets, daily range): BP systolic 90–128; BP diastolic 46–96; PULSE 96–97; O2SAT 96–97; BMI 25.0
[2023-06-11 03:51] LABS: Hemoglobin 7.2 g/dL (13.0-18.0); Mean Corp Hgb Conc. 34.3 g/dL (33.0-37.0); Mean Corpuscular Hgb 33.2 pg (27.0-31.0); Mean Corpuscular Volume 96.8 fL (80.0-94.0); Mean Platelet Volume 11.5 fL (7.4-10.4); Red Blood Cell Count 2.17 10^6/uL (4.70-6.10); Red Cell Dist. Width 27.2 % (11.5-14.5); White Blood Cell Count 5.6 10^3/uL (4.8-10.8)
[2023-06-11 04:03] LABS: Platelet Count 18 10^3/uL (130-400)
[2023-06-11 04:18] LABS: Blood Urea Nitrogen 22 mg/dl (9-20); Calcium 8.2 mg/dl (8.4-10.2); Carbon Dioxide 25 mmol/L (22-30); Chloride 111 mmol/L (98-107); Estimated Creatinine Clearance 35 ml/min; Glucose 104 mg/dl (70-99); Potassium 3.8 mmol/L (3.5-5.1); Sodium 138 mmol/L (135-145); eGFR 49.25
--- NOTE | 2023-06-11 04:31 | W.PN.UPDATE ---
Update Note
Progress Note Update
Morning labs: platelets 18, order placed to transfuse 1 unit platelets.
--- NOTE | 2023-06-11 04:47 | PTCARENOTE ---
AM platelets 18. order caller provider made aware and ordered one unit platelets. [facility] that platelets will be 4 + hours before delivered.
--- NOTE | 2023-06-11 06:55 | W.PN.ONC2 ---
Today's Communication / Plan
-
Transfuse PRBC x 1 and PLT x 1 and then D/C
Impression
Impression
Relapsing plasma cell leukemia
multiple antibodies requiring [place] transfusion support and delays (2* daratumumab)
Plan
Plan
For PLT tnfx today for PLT = 18K. Will also order 1 more unit PRBC for HgB 7.2.
Hopefully he will be able to get transfusions today and can be discharged following transfusions. He is asymptomatic.
F/U Dr. Gardiner to resume low dose Revlimid + Gretel as outpatient
Subjective/Objective
Chief Complaint
ACS Heme Onc
Subjective
Feels well. Wants to go home. No F/Z or bleeding.
Vital Signs:
Vital Signs
Temp Pulse Resp BP Pulse Ox
98.4 F 92 18 124/69 95
06/11/23 02:50 06/11/23 06:00 06/11/23 06:00 06/11/23 06:00 06/11/23 06:00
Lab Results:
Laboratory Data
WBC 5.6 10^3/uL (4.8-10.8) 06/11/23 03:26
Hgb 7.2 g/dL (13.0-18.0) L 06/11/23 03:26
Plt Count 18 10^3/uL (130-400) L* D 06/11/23 03:26
PT 15.7 Sec (11.4-14.6) H 06/09/23 08:33
INR 1.27 06/09/23 08:33
APTT 28.3 Sec (23.4-35.0) 06/09/23 08:33
eGFR 49.25 06/11/23 03:26
Physical Exam
HEENT: No Jaundice
Cardiology: S1 and S2
Pulmonary: Clear
Extremities: No C/C/E
[2023-06-11] MEDS: ADVAIR HFA 115/21 MCG INHALER INH ×2 (07:44→20:30)
[2023-06-11] MEDS: ZOVIRAX 400 MG PO ×2 (09:18→20:21)
[2023-06-11] MEDS: VITAMIN D3 (cholecalciferol) 25 MCG PO (09:18)
[2023-06-11] MEDS: COREG PO (09:18)
[2023-06-11] MEDS: OSCAL 500 + D 500 MG PO ×2 (09:18→20:22)
[2023-06-11] MEDS: COSOPT EYE DROPS 1 DROP BOTH EYES (09:19)
[2023-06-11 10:19] LABS: Lactic Acid 1.4 mmol/L (0.7-2.0)
[2023-06-11 10:31] LABS: NT-proBNP 613 pg/ml; Troponin I < 0.012 ng/ml
--- NOTE | 2023-06-11 11:42 | PTCARENOTE ---
Patients pulse ox 88% on room air this morning, nonproductive cough. Pulse ox 95% on 2 liters via nasal cannula. Patient denying pain or shortness of breath when asked, dyspnea on exertion. Covid and flu swab sent. Patient had a brown/green formed
stool this morning, heme negative. Third unit of PRBCs infusing at this time. Platelets pending. Patient is tolerating blood transfusion at this time bp 108/65 93, pulse ox 95% on 2 liters.
--- NOTE | 2023-06-11 12:13 | W.PN.HOSP.TC ---
Addendum entered and electronically signed by Jim Loera MD 06/11/23 15:20:
Dr. Light of gastroenterology said no reason from GI standpoint to see the patient at this time for any possible GI bleeding source, if patient's Hgb keeps dropping even after transfusion, then will consult GI and may need to consider CTA abdomen.
Original Note:
Today's Communication/Plan
-
Additional PRBC and Platelets transfusion ordered
Dyspnea, Hypoxia: ordered tests as below
Assessment / Plan
Assessment / Plan
Physical Exam
General: Comfortable and Conversant
HEENT: Normocephalic and Moist mucous membranes
Respiratory: Clear and Non Labored Respirations. On nasal cannula oxygen.
Cardiac: S1/S2 and Regular Rhythm
GI: Soft and Non Tender. Positive bowel sounds.
Musculoskeletal: No Clubbing, No Cyanosis and Other (+1 pitting edema bilateral lower extremities)
Skin: Warm and Dry
Neuro: Awake, Alert, Oriented and Nonfocal/grossly intact

Acute on Chronic Anemia
Acute on Chronic Thrombocytopenia
-Consulted Oncology/Hematology, recommendations appreciated
-Order for 2 units PRBCs placed: 2 units of PRBCs transfused on June 10, 2023
-Ordered 1 unit of platelets after discussing (on 06/09/23) the details of platelet transfusion (including type of platelets) with Dr. Holt: 1 unit of platelets transfused on 06/09/23
-Additional PRBC and Platelets ordered for transfusion on 06/11/23 due to dropping Hgb and platelets
-Patient was unable to transfused blood right away on admission due to multiple antibodies for which blood bank was sending out more labs/discussing with [place]
-No signs of active bleeding at this time, monitor for bleeding
-Consulted gastroenterology, recommendations appreciated
-Recheck Hgb in AM/monitor CBC
-Hold aspirin due to thrombocytopenia
Dyspnea
Hypoxia
-Ordered CXR, proBNP, EKG, echocardiogram and troponins
-If above tests are unrevealing, and if symptoms unresolved with blood transfusion, may need to consult pulm and consider V/Q scan to check for PE
Lower Extremity Edema
-Can give dose of Lasix between units of blood if needed
CKD Stage II
-Creatinine slightly above baseline, possibly due to mild overload
-Recheck creatinine in AM
-Will consider nephrology consultation
Essential Hypertension
-Continue Coreg with hold parameters
Hyperlipidemia
-Continue atorvastatin in place of simvastatin
Multiple Myeloma
-Continue acyclovir for prophylaxis
-Patient maintained on Velcade as outpatient
COPD, no acute exacerbation
-Continue Advair
Neuropathy
-Continue Gabapentin
GERD
-Continue Protonix
BPH
-Continue Flomax and Proscar
Glaucoma
-Continue dorzolamide/timolol
DVT proph: SCDs
Code Status: Full Code
06/11/23: Discussed case with patient's daughter, Na.
Anticipated Discharge: 24 - 48 hours
Subjective/Interval History
-
Date of Service: June 11, 2023
Patient was seen and examined. He denied any chest pain or shortness of breath, however he did appear short of breath and continued to need oxygen.
Objective Data
-
Labs:
Laboratory Results
06/11/23
03:26
WBC 5.6
Hgb 7.2 L
Hct 21.0 L
Plt Count 18 L* D
Sodium 138
Potassium 3.8
Chloride 111 H
Carbon Dioxide 25
BUN 22 H
Creatinine 1.4 H
Glucose 104 H
Calcium 8.2 L
Vital Signs:
Vital Signs
Temp Pulse Resp BP Pulse Ox
98 F 95 22 113/62 95
06/11/23 11:48 06/11/23 11:48 06/11/23 11:48 06/11/23 11:48 06/11/23 11:48
I&O
06/10/23 06/11/23 06/12/23
06:59 06:59 06:59
Intake Total 1624 / 1624 1060 / 1060 120 / 120
Output Total 850 / 850 900 / 900
Balance 774 / 774 160 / 160 120 / 120
[2023-06-11 12:36] LABS: COVID-19 Antigen Negative (Negative)
[2023-06-11 16:03] LABS: Troponin I < 0.012 ng/ml
[2023-06-11] MEDS: PROTONIX 40 MG PO (16:16)
--- NOTE | 2023-06-11 17:26 | CM ---
Patient with Hx Multiple Myeloma on chemo with Dx Acute on Chronic Anemia, Acute on Chronic Thrombocytopenia, Relapsing plasma cell leukemia. O2 2L. Receiving transfusions with PRBCs & platelets. Receiving IV Lasix. PT & OT 06/11; HH vs no needs.
Attempted to meet with patient who was unavailable in bathroom. Met with and spoke with daughter Na, who is CM here at ; they say the patient will want to return home and will not want VN. He is eager to go home.
No CM d/c needs identified.
Plan home.
--- NOTE | 2023-06-11 17:50 | PTCARENOTE ---
Patient was found in shower by RN. Patient was irritable with nursing staff and refused to listen to safety concerns, yelling at nurse. Male attendant assisted patient with shower and patient was safely dressed and placed back in bed. Bed alarm on
due to fall risk.
--- NOTE | 2023-06-11 19:30 | PTCARENOTE ---
Patient received one unit of PRBCs and platelets this shift. tolerated with no reaction.
[2023-06-11] MEDS: FLOMAX 0.800000000000000044 MG PO (20:21)
[2023-06-11] MEDS: NEURONTIN 600 MG PO (20:21)
[2023-06-11] MEDS: PROSCAR 5 MG PO (20:21)
[2023-06-11] MEDS: ATIVAN 0.5 MG PO (20:21)
[2023-06-11] MEDS: LIPITOR 10 MG PO (20:22)
[2023-06-11] MEDS: COREG 6.25 MG PO (20:22)
[2023-06-11] MEDS: XALATAN OPHTHALMIC SOLUTION 1 DROP BOTH EYES (20:22)
[2023-06-11] MEDS: COSOPT EYE DROPS BOTH EYES (20:23)
[2023-06-11 23:52] LABS: Troponin I < 0.012 ng/ml
[2023-06-12] VITALS (14 sets, daily range): BP systolic 90–136; BP diastolic 47–97; BMI 25.1
[2023-06-12 05:39] LABS: Hematocrit 23.1 % (39.0-52.0); Mean Corp Hgb Conc. 34.6 g/dL (33.0-37.0); Mean Corpuscular Hgb 33.5 pg (27.0-31.0); Mean Corpuscular Volume 96.7 fL (80.0-94.0); Mean Platelet Volume 11.3 fL (7.4-10.4); Red Blood Cell Count 2.39 10^6/uL (4.70-6.10); Red Cell Dist. Width 25.1 % (11.5-14.5); White Blood Cell Count 5.8 10^3/uL (4.8-10.8)
[2023-06-12 05:58] LABS: Platelet Count 19 10^3/uL (130-400)
--- NOTE | 2023-06-12 06:03 | W.PN.UPDATE ---
Update Note
Progress Note Update
Morning labs: platelets 19, order placed to transfuse 1 unit platelets.
[2023-06-12 06:11] LABS: Troponin I < 0.012 ng/ml
[2023-06-12 06:21] LABS: Blood Urea Nitrogen 21 mg/dl (9-20); Calcium 8.1 mg/dl (8.4-10.2); Carbon Dioxide 26 mmol/L (22-30); Chloride 110 mmol/L (98-107); Estimated Creatinine Clearance 41 ml/min; Glucose 96 mg/dl (70-99); Potassium 3.6 mmol/L (3.5-5.1); Sodium 138 mmol/L (135-145); eGFR 59.26
--- NOTE | 2023-06-12 06:26 | PTCARENOTE ---
Cared for pt overnight. aaox3, pleasant, eager to leave. SR on monitor. Had small burst of SVT when on the toilet in BR, bpm up to 160's, symptomatic. Trops drawn overnight, all negative. Denies any pain. Remains on 2LNC, notably SOB on exertion &
tachypneic. Bed alarm on, call elam in reach. Will monitor.
[2023-06-12] MEDS: ADVAIR HFA 115/21 MCG INHALER INH ×2 (07:26→19:34)
[2023-06-12] MEDS: COSOPT EYE DROPS BOTH EYES ×2 (08:41→20:19)
[2023-06-12] MEDS: ZOVIRAX 400 MG PO ×2 (08:41→20:17)
[2023-06-12] MEDS: VITAMIN D3 (cholecalciferol) 25 MCG PO (08:41)
[2023-06-12] MEDS: OSCAL 500 + D 500 MG PO ×2 (08:41→20:19)
[2023-06-12] MEDS: COREG 6.25 MG PO ×2 (08:45→20:18)
--- NOTE | 2023-06-12 10:11 | CON.PUL ---
Consultation
Consultation Request
Date/Time Consultation Requested: 06/12/23
Date/Time Consultation Performed: 06/12/23
Performing Provider: Ernie
Reason for Consultation: SOB
Medical History
-
History of Present Illness:
Patient is an 83 year old M with past medical history of Multiple Myeloma, COPD/emphysema, HTN, HLD, and hypothyroidism sent to ER by his oncologist due to abnormal lab values. The patient states that he has routine labs drawn weekly and sees his
oncologist every Thursday. He presented with a hemoglobin of 6.8 and platelets of 14 (prior 7.6 and 48 completed on 05/18/23). The patient also admits to having diarrhea this morning which he noted bright red blood in and states that he has
hemorrhoids with occasional blood on toilet paper.
Admitted 06/08/23 but he reports ongoing SOB.
Has a history of COPD/emphysema, last seen in our office in 2021, PFT showing moderate reduction, but has not been seen again.
He does not provide additional clarity on this SOB, but does note fatigue/weakness. He has been sedentary at home.
Past Medical History
Past Medical History: Other (see list below)
Social History
Tobacco: Former Smoker
Alcohol: None
Drug: None
Family History
Family History: Reviewed & Not Pertinent
Allergies / Home Medications
Allergies
Allergy/AdvReac Type Severity Reaction Status Date / Time
No Known Allergies Allergy Verified 06/08/23 18:33
Home Medications
Medication Instructions Recorded Confirmed Last Taken Type
latanoprost 0.005 % eye drops 1 drp BOTH EYES HS Eye condition 09/09/21 06/08/23 06/07/23 History
tamsulosin 0.4 mg capsule 0.8 mg PO HS Urinary Issue 09/09/21 06/08/23 06/07/23 History
docusate sodium 100 mg capsule 100 mg PO BIDPRN PRN constipation 09/19/21 06/08/23 10/16/21 History
finasteride 5 mg tablet 5 mg PO HS Urinary Issue 09/19/21 06/08/23 06/07/23 History
polyethylene glycol 3350 17 gram 17 grams PO DAILYPRN PRN 09/19/21 06/08/23 Unknown History
oral powder packet constipation
sennosides 8.6 mg tablet (senna) 17.2 mg PO BIDPRN PRN constipation 09/19/21 06/08/23 02/20/22 History
aspirin 81 mg tablet,delayed 81 mg PO DAILY@1700 Blood Clot 10/16/21 06/08/23 06/07/23 History
release Prevention/Tx
simvastatin 40 mg tablet 20 mg PO HS High Cholesterol 10/16/21 06/08/23 06/07/23 History
carvedilol 6.25 mg tablet 6.25 mg PO BID Blood Pressure 02/20/22 06/08/23 06/08/23 History
B-complex with vitamin C 1 tab PO DAILY Supplement 03/14/23 06/08/23 06/08/23 History
acetaminophen 325 mg tablet 650 mg PO Q4HPRN PRN mild 03/14/23 06/08/23 Unknown History
pain/fever
acetaminophen 500 mg tablet 1,000 mg PO DAILYPRN PRN prior to 03/14/23 06/08/23 Unknown History
chemo
acyclovir 400 mg tablet 400 mg PO BID prophylaxis for 03/14/23 06/08/23 06/08/23 History
herpes zoster
dorzolamide 22.3 mg-timolol 6.8 1 drp BOTH EYES BID Eye Condition 03/14/23 06/08/23 06/08/23 History
mg/mL eye drops
gabapentin 300 mg capsule 600 mg PO HS Pain 03/14/23 06/08/23 2 Weeks Ago History
~05/25/23
lorazepam 0.5 mg tablet 0.5 mg PO HS mental health/sleep 03/14/23 06/08/23 06/07/23 History
montelukast 10 mg tablet 10 mg PO USEASDIRECTD 03/14/23 06/08/23 03/12/23 History
Lung/Breathing Issues
ascorbic acid (vitamin C) 500 mg 500 mg PO DAILY Supplement 04/18/23 06/08/23 06/08/23 History
tablet (Vitamin C)
bortezomib 3.5 mg injection powder 3 mg SC Q21D multiple myeloma 04/18/23 06/08/23 2 Weeks Ago History
for solution (Velcade) ~05/25/23
calcium carbonate 600 mg-vitamin 1 tab PO BID Supplement 04/18/23 06/08/23 06/08/23 History
D3 10 mcg (400 unit) tablet
(Calcium 600 + D(3))
cholecalciferol (vitamin D3) 25 25 mcg PO DAILY Supplement 04/18/23 06/08/23 06/08/23 History
mcg (1,000 unit) tablet
denosumab 60 mg/mL subcutaneous 60 mg SC [id number] multiple myeloma 04/18/23 06/08/23 Unknown History
syringe (Prolia)
fluticasone 250 mcg-salmeterol 50 1 inh inhalation R BID 04/18/23 06/08/23 06/08/23 History
mcg/dose blistr powdr for Lung/Breathing Issues
inhalation (Advair Diskus)
dexamethasone 4 mg tablet 4 mg PO . DIRECTED 06/08/23 06/08/23 Unknown History
Anti-Inflammatory
furosemide 40 mg tablet 20 mg PO DAILY PRN swelling 06/08/23 06/08/23 05/31/23 History
pantoprazole 40 mg tablet,delayed 40 mg PO DAILY@1700 06/08/23 06/08/23 06/07/23 History
release (Protonix) Gastrointestinal Issue
Review of Systems
-
History Source: Patient
All other systems: Negative unless noted
Vitals / Labs / Diagnostic Testing
Vital Signs
Temp Pulse Resp BP Pulse Ox
97.5 F 97 15 136/97 94
06/12/23 07:35 06/12/23 08:41 06/12/23 08:41 06/12/23 08:41 06/12/23 09:01
Lab Data
06/12/23 05:22
06/12/23 05:22
Microbiology
06/11/23 11:36 Nasal Swab Influenza Types A & B (ALDO) - Final
Negative for Influenza A & B, NAAT
Negative results must be combined with clinical observations
and patient history.
Nucleic Acid Amplification test (NAAT)performed on the
[employer] NOW platform.
Diagnostic Testing:
Physical Exam
-
HEENT: Normocephalic, Anicteric and Moist Mucous Membranes
Cardiovascular: S1/S2 and Regular Rhythm
Respiratory: Clear and Non-Labored Respirations
GI: Soft, Non Distended and Non Tender
Neurology: Awake, Alert, Oriented, AO x 3 and No Motor Deficits
Skin: Warm, Dry and Good Color
General: Comfortable and Other (NAD, appears severely deconditioned)
Assessment
-
Patient is an 83 year old M with past medical history of Multiple Myeloma, COPD/emphysema, HTN, HLD, and hypothyroidism sent to ER by his oncologist due to abnormal lab values. The patient states that he has routine labs drawn weekly and sees his
oncologist every Thursday. He presented with a hemoglobin of 6.8 and platelets of 14 (prior 7.6 and 48 completed on 05/18/23). The patient also admits to having diarrhea/bright red blood per rectum. Admitted 06/08/23 but he reports ongoing SOB. We
are consulted for eval 06/12/23.
Symptomatic anemia, acute on chronic
Acute on chronic SOB
Thrombocytopenia, severe
BRBPR, possible LGIB
Fatigue
COPD/emphysema, not in clear exacerbation
Sedentary lifestyle
Severe deconditioning
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
MM on immunosuppression
Chronic hypoxemic respiratory failure on O2 with sleep
COPD/Centrilobular emphysema
Follows with JS
Recent spirometry w/ mild airflow obstruction;�suggestion of restriction
Patient did not feel any improvement with Advair
HLD
Hx of COVID-19
Diverticulosis
Hypothyroidism
Hx of HFpEF and valvular heart disease
Chronic kidney disease, stage 2 (mild)
HTN
Mixed hyperlipidemia
Chronic Lymphedema
Ambulatory dysfunction��
Plan
He is currently 94% on 2L NC, not known to be on home O2
Has a history of COPD/emphysema, last seen in our office in 2021, PFT showing moderate reduction, but has not been seen again.
FEV1 2021 1.30L 58%
Reviewed outpatient records
He does not provide additional clarity on this SOB, but does note fatigue/weakness. He has been sedentary at home.
Suspect patient has underlying multifactorial SOB due to COPD/emphysema, fatigue, anemia, deconditioning
But he has not gotten out of bed to evaluate breathing
V/Q scan suggested, creat 1.2 today, 1.4 yesterday
We discussed further w/u to evaluate this but he has declined
Can add on d-dimer for indirect evaluation with morning labs
CXR obtained indicating hypoinflation/no acute disease
Other imaging reviewed in past with moderate emphysema
ECHO results in past reviewed--normal function, grade I DD
ProBNP not indicative of volume overload
Must be monitored with multiple transfusions ongoing
Symptomatic anemia likely contributing
GI eval ongoing to r/o GIB
Trending H&H
Will need outpatient pulmonary evaluation in our office for PFTs and 6MWT
Reviewed with patient
PT/OT eval recommended
We will follow
Diagnostic Data
CXR 06/11/23- Lungs appear hypoinflated.
CXR (03/14/2023):� Progressed left lung atelectasis versus scarring. New mild right lower lobe atelectasis.
CT Chest� (09/2021):
1. No CTA evidence for an acute pulmonary thromboembolism.
2. Numerous lytic lesions throughout the imaged osseous structures remain compatible with the known history of multiple myeloma. Multiple� bilateral pathologic rib fractures are redemonstrated of varying chronicity. There are also pathologic
compression fractures of T7 and T10 in the�thoracic spine.
3. Moderate centrilobular emphysema.
ECHO 06/11/23- �Normal left ventricular size, wall thickness and systolic function. No regional wall motion abnormalities are seen. LV ejection fraction is 60-65% by visual assessment.�Stage I diastolic dysfunction suggestive of abnormal
relaxation.�Normal right ventricular size and function.�Mild tricuspid regurgitation.�Estimated pulmonary artery pressure of 50 mmHg, assuming a right atrial�pressure of 3 mmHg.�Compared to prior from February 13, 2022, no significant change.�
Spirometry 11/2021- 1.30L 58%, FVC 1.76L 54%, ratio 0.73. Post FEV1 1.39L 62% (mixed pattern, moderately reduced)
--- NOTE | 2023-06-12 12:34 | W.PN.HOSP.TC ---
Today's Communication/Plan
-
Platelets to be transfused
Good improvement in Hgb
Pulmonary consulted, recommendations appreciated
Transfer to tele
Assessment / Plan
Assessment / Plan
Physical Exam
General: Comfortable and Conversant
HEENT: Normocephalic and Moist mucous membranes
Respiratory: Clear and Non Labored Respirations. On nasal cannula oxygen.
Cardiac: S1/S2 and Regular Rhythm
GI: Soft and Non Tender. Positive bowel sounds.
Musculoskeletal: No Clubbing, No Cyanosis and Other (+1 pitting edema bilateral lower extremities)
Skin: Warm and Dry
Neuro: Awake, Alert, Oriented and Nonfocal/grossly intact

Echocardiogram, as per supervisor tile and mottle's report:
'CONCLUSIONS
Normal left ventricular size, wall thickness and systolic function.
No regional wall motion abnormalities are seen.
LV ejection fraction is 60-65% by visual assessment.
Stage I diastolic dysfunction suggestive of abnormal relaxation.
Normal right ventricular size and function.
Mild tricuspid regurgitation.
Estimated pulmonary artery pressure of 50 mmHg, assuming a right atrial
pressure of 3 mmHg.
Compared to prior from February 13, 2022, no significant change.'

Acute on Chronic Anemia
Acute on Chronic Thrombocytopenia
-Consulted Oncology/Hematology, recommendations appreciated
-Patient was unable to transfused blood right away on admission due to multiple antibodies for which blood bank was sending out more labs/discussing with [facility]
-Order for PRBCs placed: 2 units of PRBCs transfused on June 10, 2023, another 1 unit of PRBC was given on June 11, 2023
-Ordered 1 unit of platelets after discussing (on 06/09/23) the details of platelet transfusion (including type of platelets) with Dr. Holt: 1 unit of platelets transfused on 06/09/23, another 1 unit platelets transfused on 06/11/23, a 3rd
unit of platelets was ordered on 06/12/23: will take time due to the fact that it has to come from [facility]
-No signs of active bleeding at this time, monitor for bleeding
-Consulted gastroenterology, recommendations appreciated: no need for consult at this time due to negative FOBT test and no blood in stool
-Recheck Hgb in AM/monitor CBC
-Hold aspirin due to thrombocytopenia
Dyspnea
Hypoxia
-Ordered CXR (showed hypoinflated lungs, bilateral atelectasis), proBNP (not significant to rule in CHF), EKG (not concerning for ACS), echocardiogram (unremarkable) and troponins (negative)
-Consulted pulm for hypoxia, possible V/Q scan to check for PE in pulmonary opinion
Lower Extremity Edema
-Can give dose of Lasix between units of blood if needed
CKD Stage II
-Creatinine slightly above baseline, BUT IMPROVED, possibly due to mild overload
-Recheck creatinine in AM
-Will consider nephrology consultation if needed
Essential Hypertension
-Continue Coreg with hold parameters
Hyperlipidemia
-Continue atorvastatin in place of simvastatin
Multiple Myeloma
-Continue acyclovir for prophylaxis
-Patient maintained on Velcade as outpatient
COPD, no acute exacerbation
-Continue Advair
Neuropathy
-Continue Gabapentin
GERD
-Continue Protonix
BPH
-Continue Flomax and Proscar
Glaucoma
-Continue dorzolamide/timolol
DVT proph: SCDs
Code Status: Full Code
06/11/23: Discussed case with patient's daughter, Na.
Anticipated Discharge: 24 - 48 hours
Subjective/Interval History
-
Date of Service: June 12, 2023
Patient was seen and examined. He continues to need oxygen and appears somewhat short of breath. He denied any new symptoms.
Objective Data
-
Labs:
Laboratory Results
06/12/23
05:22
WBC 5.8
Hgb 8.0 L
Hct 23.1 L
Plt Count 19 L*
Sodium 138
Potassium 3.6
Chloride 110 H
Carbon Dioxide 26
BUN 21 H
Creatinine 1.2
Glucose 96
Calcium 8.1 L
Vital Signs:
Vital Signs
Temp Pulse Resp BP Pulse Ox
98.1 F 82 24 90/61 94
06/12/23 12:33 06/12/23 12:33 06/12/23 12:33 06/12/23 12:33 06/12/23 09:01
I&O
06/11/23 06/12/23 06/13/23
06:59 06:59 06:59
Intake Total 1060 / 1060 1626 / 1626
Output Total 900 / 900 400 / 400
Balance 160 / 160 1226 / 1226
--- NOTE | 2023-06-12 14:01 | PTCARENOTE ---
Unit of platelets transfused; pt tolerated well. Downgraded to tele. Report to receiving RN. Belongings collected from room. Awaiting arrival of pt transport to transfer pt to 2136.
--- NOTE | 2023-06-12 14:43 | PTCARENOTE ---
Received pt from IMU at 1415 via stretcher. Pt walked to bed from stretcher, 2L nc placed, resting comfortably with call elam within reach and at bedside.
--- NOTE | 2023-06-12 14:56 | CM ---
patient seen with dr harris at bedside.he has a plt count of 19-given i unit plts,hgb 8,,cont 2 liters nc o2. patient has declined a vq scan.patient stable for transfer to tele.
Plan: home with no home care services.
--- NOTE | 2023-06-12 16:04 | W.PN.ONC ---
Today's Communication / Plan
-
If CBC remains stable, would d/c home
Will work on office f/u with Dr. Gardiner for next week
Plan is to continue darzalex, but switch from Revlimid to Pomalyst, which has been delivered to patient - would wait until visit w/ Dr. Gardiner to start taking it.
Impression
Impression
Relapsing plasma cell leukemia
multiple antibodies requiring [facility] transfusion support and delays (2* daratumumab)
Plan
Plan
If CBC remains stable, would d/c home
Will work on office f/u with Dr. Gardiner for next week
Plan is to continue darzalex, but switch from Revlimid to Pomalyst, which has been delivered to patient - would wait until visit w/ Dr. Gardiner to start taking it.
Subjective/Objective
Subjective/Objective
No complaints, eager to go home
Platelet transfusion just finished
Vital Signs:
Vital Signs
Temp Pulse Resp BP Pulse Ox
97.7 F 86 19 126/56 96
06/12/23 14:34 06/12/23 14:34 06/12/23 14:34 06/12/23 14:34 06/12/23 14:34
Lab Results:
Laboratory Data
WBC 5.8 10^3/uL (4.8-10.8) 06/12/23 05:22
Hgb 8.0 g/dL (13.0-18.0) L 06/12/23 05:22
Plt Count 19 10^3/uL (130-400) L* 06/12/23 05:22
PT 15.7 Sec (11.4-14.6) H 06/09/23 08:33
INR 1.27 06/09/23 08:33
APTT 28.3 Sec (23.4-35.0) 06/09/23 08:33
eGFR 59.26 06/12/23 05:22
[2023-06-12] MEDS: PROTONIX PO (16:45)
[2023-06-12] MEDS: LIPITOR 10 MG PO (21:26)
[2023-06-12] MEDS: FLOMAX 0.800000000000000044 MG PO (21:26)
[2023-06-12] MEDS: PROSCAR 5 MG PO (21:26)
[2023-06-12] MEDS: NEURONTIN 600 MG PO (21:26)
[2023-06-12] MEDS: ATIVAN 0.5 MG PO (21:26)
[2023-06-12] MEDS: XALATAN OPHTHALMIC SOLUTION 1 DROP BOTH EYES (21:30)
[2023-06-13 03:10] VITALS: BP 114/70
[2023-06-13 04:26] VITALS: BMI 25.2
--- NOTE | 2023-06-13 07:06 | W.PN.HOSP.TC ---
Today's Communication/Plan
-
discharge
Assessment / Plan
Assessment / Plan
Physical Exam
General: Comfortable and Conversant
HEENT: Normocephalic and Moist mucous membranes
Respiratory: Clear and Non Labored Respirations. On nasal cannula oxygen.
Cardiac: S1/S2 and Regular Rhythm
GI: Soft and Non Tender. Positive bowel sounds.
Musculoskeletal: No Clubbing, No Cyanosis, No edema lower extremities, Calf asymmetry L>R
Skin: Warm and Dry
Neuro: Awake, Alert, Oriented and Nonfocal/grossly intact

Echocardiogram, as per toaster element repairer's report:
'CONCLUSIONS
Normal left ventricular size, wall thickness and systolic function.
No regional wall motion abnormalities are seen.
LV ejection fraction is 60-65% by visual assessment.
Stage I diastolic dysfunction suggestive of abnormal relaxation.
Normal right ventricular size and function.
Mild tricuspid regurgitation.
Estimated pulmonary artery pressure of 50 mmHg, assuming a right atrial
pressure of 3 mmHg.
Compared to prior from February 13, 2022, no significant change.'

Acute on Chronic Anemia
Acute on Chronic Thrombocytopenia
Relapsing plasma cell leukemia, Multiple Myeloma
-Consulted Oncology/Hematology, recommendations appreciated
-Patient was unable to transfused blood right away on admission due to multiple antibodies for which blood bank was sending out more labs/discussing with [facility]
-Order for PRBCs placed: 2 units of PRBCs transfused on June 10, 2023, another 1 unit of PRBC was given on June 11, 2023
-Ordered 1 unit of platelets after discussing (on 06/09/23) the details of platelet transfusion (including type of platelets) with Dr. Holt: 1 unit of platelets transfused on 06/09/23, another 1 unit platelets transfused on 06/11/23, a 3rd
unit of platelets was ordered on 06/12/23: will take time due to the fact that it has to come from [facility]
-platelets since improved to 24 following transfusion
-No signs of active bleeding at this time, monitor for bleeding
-Consulted gastroenterology, recommendations appreciated: no need for consult at this time due to negative FOBT test and no blood in stool
-Monitor H&H currently appears stable trending up most recent 8.2
-Hold aspirin due to thrombocytopenia
Dyspnea
Hypoxia
-Ordered CXR (showed hypoinflated lungs, bilateral atelectasis), proBNP (not significant to rule in CHF), EKG (not concerning for ACS), echocardiogram (unremarkable) and troponins (negative)
-Consulted pulm appreciated
-D Dimer elevated 2.05 possibly malignancy related
-Venous Duplex neg for DVT
CT chest neg for PE
-moderate centrilobular emphysema
-small to moderate pleural effusions w/ adjacent atelectasis
-two pulm nodules LeFt upper and lower lobe 7mm possible malignancy/metastatic disease
Lower Extremity Edema
-Can give dose of Lasix between units of blood if needed
-appears resolved at this time though calf asymmetry
resolved BERTA on CKD Stage III
-Improved from admission 1.5 to current 1.1 likely baseline 0.9-1.1
Essential Hypertension
-Continue Coreg with hold parameters
Hyperlipidemia
-Continue atorvastatin in place of simvastatin
Multiple Myeloma
-Continue acyclovir for prophylaxis
-Patient maintained on Velcade as outpatient
COPD, no acute exacerbation
-Continue Advair
Neuropathy
-Continue Gabapentin
GERD
-Continue Protonix
BPH
-Continue Flomax and Proscar
Glaucoma
-Continue dorzolamide/timolol
DVT proph: SCDs
Code Status: Full Code
discussed with patient and his daughter Na, would preferably have patient stay for another day to monitor platelets and hgb however patient unwilling wants to go home. Will arrange for close follow up with repeat labwork imaging outpatient.
Total Time Preparing Discharge ___50____ minutes including examination of the patient, summary of the hospital stay, instructions for continuing care to all relevant caregivers; and preparation of discharge records, prescriptions, and referral
forms if necessary.
Anticipated Discharge: Today
Subjective/Interval History
-
Date of Service: June 13, 2023
No acute distress resting comfortably in bed. Denies any new acute issues at this time. Remains oxygen dependent 2L but also reports having home oxygen already set up, confirmed with family. Eager to go home
Objective Data
-
Labs:
Laboratory Results
06/13/23
06:00
WBC Pending
Hgb Pending
Hct Pending
Plt Count Pending
Sodium Pending
Potassium Pending
Chloride Pending
Carbon Dioxide Pending
BUN Pending
Creatinine Pending
Glucose Pending
Calcium Pending
Vital Signs:
Vital Signs
Temp Pulse Resp BP Pulse Ox
98.4 F 88 16 114/70 93
06/13/23 03:10 06/13/23 03:10 06/13/23 03:10 06/13/23 03:10 06/13/23 03:10
I&O
06/12/23 06/13/23 06/14/23
06:59 06:59 06:59
Intake Total 1626 / 1626 602 / 602
Output Total 400 / 400
Balance 1226 / 1226 602 / 602
[2023-06-13 07:54] VITALS: BP 115/60
[2023-06-13] MEDS: ADVAIR HFA 115/21 MCG INHALER INH (07:55)
[2023-06-13 08:27] LABS: Hematocrit 24.3 % (39.0-52.0); Hemoglobin 8.2 g/dL (13.0-18.0); Mean Corp Hgb Conc. 33.7 g/dL (33.0-37.0); Mean Corpuscular Hgb 33.5 pg (27.0-31.0); Mean Corpuscular Volume 99.2 fL (80.0-94.0); Mean Platelet Volume 10.5 fL (7.4-10.4); Red Blood Cell Count 2.45 10^6/uL (4.70-6.10); Red Cell Dist. Width 24.2 % (11.5-14.5); White Blood Cell Count 5.5 10^3/uL (4.8-10.8)
[2023-06-13 08:30] LABS: Platelet Count 24 10^3/uL (130-400)
[2023-06-13 08:49] LABS: Blood Urea Nitrogen 23 mg/dl (9-20); Calcium 8.3 mg/dl (8.4-10.2); Carbon Dioxide 25 mmol/L (22-30); Chloride 106 mmol/L (98-107); Estimated Creatinine Clearance 44 ml/min; Glucose 105 mg/dl (70-99); Potassium 3.6 mmol/L (3.5-5.1); Sodium 138 mmol/L (135-145); eGFR > 60.00
[2023-06-13] MEDS: VITAMIN D3 (cholecalciferol) 25 MCG PO (09:09)
[2023-06-13] MEDS: ZOVIRAX 400 MG PO (09:09)
[2023-06-13] MEDS: COREG 6.25 MG PO (09:09)
[2023-06-13] MEDS: OSCAL 500 + D 500 MG PO (09:09)
[2023-06-13] MEDS: COSOPT EYE DROPS 1 DROP BOTH EYES (09:10)
[2023-06-13 09:12] LABS: D-Dimer 2.05 ug/mlFEU (0.00-0.50)
[2023-06-13 11:33] VITALS: BP 98/57
--- NOTE | 2023-06-13 14:02 | W.PN.PUL3 ---
Today's Communication / Plan
-
Diurese
Maintain SpO2 >88%
Check walking pulse ox prior to discharge
Diurese and maintain net negative as tolerated
Patient being prepared for discharge home. Pulmonary service will now sign off. Please re-consult if there are any questions/concerns or if there is any respiratory deterioration.
Assessment
-
Patient is an 83 year old M with past medical history of Multiple Myeloma, COPD/emphysema, HTN, HLD, and hypothyroidism sent to ER by his oncologist due to abnormal lab values. The patient states that he has routine labs drawn weekly and sees his
oncologist every Thursday. He presented with a hemoglobin of 6.8 and platelets of 14 (prior 7.6 and 48 completed on 05/18/23). The patient also admits to having diarrhea/bright red blood per rectum. Admitted 06/08/23 but he reports ongoing SOB. We
are consulted for eval 06/12/23.
Symptomatic anemia, acute on chronic
Acute on chronic SOB - likely due to deconditioning with hypoventilation
Thrombocytopenia, today is 24k
BRBPR, possible LGIB
Fatigue
COPD/emphysema, not in clear exacerbation
Sedentary lifestyle
Severe deconditioning
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
MM on immunosuppression
Chronic hypoxemic respiratory failure on O2 with sleep
COPD/Centrilobular emphysema
Follows with [facility] [place]
Recent spirometry w/ mild airflow obstruction;�suggestion of restriction
Patient did not feel any improvement with Advair
HLD
Hx of COVID-19
Diverticulosis
Hypothyroidism
Hx of HFpEF and valvular heart disease
Chronic kidney disease, stage 2 (mild)
HTN
Mixed hyperlipidemia
Chronic Lymphedema
Ambulatory dysfunction��
Plan
He is currently 93% on 2L NC, not known to be on home O2
Has a history of COPD/emphysema, last seen in our office in 2021, PFT showing moderate reduction, but has not been seen again.
FEV1 2021 1.30L 58%
Reviewed outpatient records
He does not provide additional clarity on this SOB, but does note fatigue/weakness. He has been sedentary at home.
Suspect patient has underlying multifactorial SOB due to COPD/emphysema, fatigue, anemia, deconditioning
But he has not gotten out of bed to evaluate breathing
V/Q scan suggested, creat 1.2 today, 1.4 yesterday
We discussed further w/u to evaluate this but he has declined --> CTA chest obtained today and is negative for acute PE; small/moderate pleural effusions seen --> recommend diuresis
Encourage incentive spirometer/PT/OT
CXR obtained indicating hypoinflation/no acute disease
Other imaging reviewed in past with moderate emphysema
ECHO results in past reviewed--normal function, grade I DD
ProBNP not indicative of volume overload
Must be monitored with multiple transfusions ongoing
Symptomatic anemia likely contributing
GI eval ongoing to r/o GIB
Trending H&H
Will need outpatient pulmonary evaluation in our office for PFTs and 6MWT
Reviewed with patient
PT/OT eval recommended
Patient being prepared for discharge home. Pulmonary service will now sign off. Thank you for allowing us to be involved in the care of this patient. Please re-consult if there are any questions/concerns or if there is any respiratory
deterioration.
Diagnostic Data
CXR 06/11/23- Lungs appear hypoinflated.
CXR (03/14/2023):� Progressed left lung atelectasis versus scarring. New mild right lower lobe atelectasis.
CT Chest� (09/2021):
1. No CTA evidence for an acute pulmonary thromboembolism.
2. Numerous lytic lesions throughout the imaged osseous structures remain compatible with the known history of multiple myeloma. Multiple� bilateral pathologic rib fractures are redemonstrated of varying chronicity. There are also pathologic
compression fractures of T7 and T10 in the�thoracic spine.
3. Moderate centrilobular emphysema.
CTA Chest 06-13-2023:
1. No CTA evidence for an acute pulmonary thromboembolism.
2. Moderate centrilobular emphysema.
3. Small to moderate bilateral pleural effusions with adjacent lower lobe compressive atelectasis.
4. New linear bandlike opacity in the left upper lobe may be in part secondary to atelectasis. However, two adjacent solid pulmonary nodules in the left upper lobe and left lower lobe each measuring 7 mm raise the possibility for
malignancy/metastatic disease.
5. Osseous lytic lesions in keeping with multiple myeloma.
ECHO 06/11/23- �Normal left ventricular size, wall thickness and systolic function. No regional wall motion abnormalities are seen. LV ejection fraction is 60-65% by visual assessment.�Stage I diastolic dysfunction suggestive of abnormal
relaxation.�Normal right ventricular size and function.�Mild tricuspid regurgitation.�Estimated pulmonary artery pressure of 50 mmHg, assuming a right atrial�pressure of 3 mmHg.�Compared to prior from February 13, 2022, no significant change.�
Spirometry 11/2021- 1.30L 58%, FVC 1.76L 54%, ratio 0.73. Post FEV1 1.39L 62% (mixed pattern, moderately reduced)
Subjective Data
-
Date of Service:
Date of Service: June 13, 2023
Chief Complaint: Pulmonary Follow Up
Subjective:
Pt seen today. On 2L/min - being prepared for discharge today. Denies chest pain, TORRES, f/c.
Review of Systems
General: Other (negative unless mentioned above)
Objective Data
Data Reviewed
Vital Signs / I&O / Oxygen:
Vital Signs
Temp Pulse Resp BP Pulse Ox
97.7 F 78 18 118/57 92
06/13/23 15:59 06/13/23 15:59 06/13/23 15:59 06/13/23 15:59 06/13/23 16:00
Intake and Output
06/12/23 06/13/23 06/14/23
06:59 06:59 06:59
Intake Total 1626 / 1626 602 / 602
Output Total 400 / 400
Balance 1226 / 1226 602 / 602
SaO2 92
Nasal Cannula flow liters per 2
minute
Physical Exam
General: Comfortable
HEENT: Normocephalic and Anicteric
Cardiovascular: S1-S2 and Peripheral Edema (n)
Respiratory: Clear, Wheeze (n) and Crackles (n)
GI: Soft, Non Distended and Non Tender
Neurology: Awake and Alert
Skin: Warm and Dry
Labs/Micro/Reports
Lab Data
06/13/23 07:47
06/13/23 07:47
Microbiology
06/11/23 11:36 Nasal Swab Influenza Types A & B (ALDO) - Final
Negative for Influenza A & B, NAAT
Negative results must be combined with clinical observations
and patient history.
Nucleic Acid Amplification test (NAAT)performed on the
[employer] platform.
--- NOTE | 2023-06-13 15:03 | CM ---
Chart accessed as daughter Na requested update on patient's test results.
[2023-06-13 15:59] VITALS: BP 118/57
--- NOTE | 2023-06-13 16:34 | W.DCSUMMARY ---
Discharge Summary
Discharge Data
Date of Admission: 06/08/23
Date of Discharge: 06/13/23
-
Pending Results: No
Hospital Course
83M Multiple Myeloma, Chronic Anemia, Chronic Thrombocytopenia, COPD, HTN, HLD, and Hypothyroidism presented to the ED after being called by his oncologist about abnormal lab values, hemoglobin of 6.8 and severe thrombocytopenia. Acute on chronic
anemia, acute on chronic thrombocytopenia, relapsing plasma cell leukemia, transfusions were delayed due to multiple antibodies for which blood and platelets needed to be obtained from [place]. Aspirin was placed on hold due to severe
thrombocytopenia. Dyspnea, Hypoxia, CXR showed hypoinflated lungs, bilateral atelectasis, proBNP not significant for CHF, EKG not concerning for ACS, Echocardiogram unremarkable and Troponin negative. D Dimer elevated 2.05 likely malignancy
related. Venous Duplex neg for DVT. CT chest neg for PE, moderate centrilobular emphysema, small to moderate pleural effusions w/ adjacent atelectasis, two pulm nodules left upper and lower lobe 7mm possible malignancy/metastatic disease. BERTA on
CKD III, initial Cr 1.5 improved to 1.1 on discharge (baseline approx 0.9-1.1), possibly prerenal. Medically stabilized, patient was discharged home with close outpt follow up recommendations. Home oxygen already established prior to this
hospitalization.
Discharge Plan
-
Patient Disposition: Home (Routine Discharge)
Discharge Diagnosis/Procedures: Relapsing Plasma Cell Leukemia/Multiple Myeloma, Acute on Chronic Anemia Thrombocytopenia, Emphysema/Chronic Obstructive Pulmonary Disease, small to moderate bilateral pleural effusions as noted on CT, Two pulmonary
nodules Left Upper and Lower Lobe approximately 7mm each possible malignancy/metastasis, Acute on Chronic Kidney disease stage III, Hypertension, Hyperlipidemia, Neuropathy, BPH, Glaucoma
Condition: Fair
Diet: Regular
Activity: As tolerated
Driving Restrictions: Not until seen by your Dr
Bathing Restrictions: None
Blood Work: Please repeat CBC and BMP Thursday 06/15 following discharge, results to be forwarded to your primary care provider and oncologist (script has been provided to facilitate)
Others Tests: Please obtain chest X-ray in 1-2 weeks following discharge, results to be forwarded to your primary care provider, to follow up on pleural effusions as noted on your recent CT. Script has been provided to facilitate.
Please discuss with your primary care provider regarding follow up with a Pharmacy Technician Instructor for pulmonary function testing and 6 minute walk test within 1 month of discharge. A referral has been provided for convenience.
Stop these medications:: Continue hold on Aspirin at this time due to thrombocytopenia anemia- follow up with primary care provider and/or oncologist to determine when safe to resume.
Activity Restrictions/Additional Instructions:
Please follow up with primary care provider and oncologist in less than a week from discharge.
Please return to ED if you develop significant worsening of shortness of breath, increased oxygen requirement >2L.
Referrals:
Na Klein, DO [Active] - in one month
Melanie Gardiner DO [Active] - in less than 1 week
Ady Diaz MD [Family Provider] - in less than 1 week
Prescriptions:
Continued
latanoprost 1 DROP drops
1 drp BOTH EYES HS
Patient Comments:
both eyes
tamsulosin 0.4 MG capsule
0.8 mg PO HS
Hold Instructions: Resume on 03/20/23.
polyethylene glycol 3350 17 GRAMS powder in packet
17 grams PO DAILYPRN PRN (Reason: constipation)
finasteride 5 MG tablet
5 mg PO HS
docusate sodium 100 MG capsule
100 mg PO BIDPRN PRN (Reason: constipation)
simvastatin 40 MG tablet
20 mg PO HS
carvedilol 6.25 mg Tablet
6.25 mg PO BID
acyclovir 400 mg tablet
400 mg PO BID
lorazepam 0.5 mg tablet
0.5 mg PO HS
Patient Comments:
06/08/2023: last filled 05/18/23, 60 tabs for 30 days from [id number]
gabapentin 300 mg capsule
600 mg PO HS
dorzolamide-timolol 22.3-6.8 mg/mL drops
1 drp BOTH EYES BID
montelukast 10 mg tablet
10 mg PO USEASDIRECTD
Rx Instructions:
TAKE 1 TABLET THE NIGHT BEFORE, THE NIGHT OF, AND THE NIGHT AFTER EACH CHEMO TREATMENT
acetaminophen 325 mg Tablet
650 mg PO Q4HPRN PRN (Reason: mild pain/fever)
fluticasone propion-salmeterol [Advair Diskus] 250-50 mcg/dose Blister With Device
1 inh INHALATION R BID
furosemide 40 mg tablet
20 mg PO DAILY PRN (Reason: swelling)
dexamethasone 4 mg tablet
4 mg PO . DIRECTED
Rx Instructions:
Take 4-5 tabs (16-20mg) once before chemo
pantoprazole [Protonix] 40 mg tablet,delayed release (DR/EC)
40 mg PO DAILY@1700
No Action
pomalidomide 2 mg Capsule
2 mg PO DAILY
tramadol 50 mg Tablet
50 mg PO BIDPRN PRN (Reason: Pain)
daratumumab 20 mg/mL Solution
1,800 mg IV MONTHLY
Discharge Orders:
Discharge Patient (As Directed); Ordered 06/13/23
Ordered By: Becca Roger
Discharge Date and Time
Discharge Date/Time: 06/13/23 17:23
== END 2023-06-13 17:23 | disposition home or self-care (01) | DRG 841 ==
LOC: 2 NORTH 22:11
PROVIDERS: Clinical Nurse Specialist Family Health; Hospitalist; Physician Assistant Medical; ADMITTING PHYSICIAN Internal Medicine; ATTENDING PHYSICIAN Internal Medicine; CONSULT PHYSICIAN Internal Medicine; CONSULT PHYSICIAN Internal Medicine Hematology & Oncology; EMERGENCY PHYSICIAN Emergency Medicine; FAMILY PHYSICIAN Family Medicine
PROC: 30233R1 Transfusion of Nonautologous Platelets into Peripheral Vein, Percutaneous Approach (ICD-10-PCS; 2023-06-09)
PROC: 30233N1 Transfusion of Nonautologous Red Blood Cells into Peripheral Vein, Percutaneous Approach (ICD-10-PCS; 2023-06-10)
DX: C90.12 Plasma cell leukemia in relapse (principal); D61.818 Other pancytopenia; I13.0 Hypertensive heart and chronic kidney disease with heart failure and stage 1 through stage 4 chronic kidney disease, or unspecified chronic kidney disease; N17.9 Acute kidney failure, unspecified; J98.11 Atelectasis; I50.32 Chronic diastolic (congestive) heart failure; C90.00 Multiple myeloma not having achieved remission; E78.2 Mixed hyperlipidemia; E03.9 Hypothyroidism, unspecified; I89.0 Lymphedema, not elsewhere classified; N40.0 Benign prostatic hyperplasia without lower urinary tract symptoms; H40.9 Unspecified glaucoma; J43.2 Centrilobular emphysema; C90.10 Plasma cell leukemia not having achieved remission; Z11.52 Encounter for screening for COVID-19; G62.9 Polyneuropathy, unspecified; K21.9 Gastro-esophageal reflux disease without esophagitis; N18.30 Chronic kidney disease, stage 3 unspecified; Z79.60 Long term (current) use of unspecified immunomodulators and immunosuppressants; Z87.891 Personal history of nicotine dependence
CPT/HCPCS: 36415; 71045; 71275; 80048; 80053; 82607; 82728; 82746; 82784; 83521; 83540; 83550; 83605; 83880; 84155; 84165; 84484; 85025; 85027; 85379; 85384; 85610; 85730; 86334; 86850; 86870; 86900; 86901; 86902; 86920; 86922; 87502; 87811; 93005; 93306; 93970; 94640; 97162; 97166; 99284; P9016; P9035; P9073; Q9967

== ENCOUNTER → 2023-06-15 11:47 | Outpatient (REF) | payer MEDICARE, OTHER, SELFPAY ==
[2023-06-15 12:32] LABS: % Basophils 0.6 % (0-2); % Eosinophils 26.1 % (0-6); % Immature Granulocytes 1.8 % (0-0.5); % Monocytes 8.7 % (1.7-9.3); % Neutrophils 39.8 % (42.2-75.2); Absolute Eosinophils 1.9 10^3/uL (0-0.7); Absolute Immature Granulocytes 0.1 10^3/uL (0-0.05); Absolute Lymphocytes 1.7 10^3/uL (1.2-3.4); Absolute Monocytes 0.6 10^3/uL (0.1-0.6); Absolute Neutrophils 2.9 10^3/uL (1.4-6.5); Hematocrit 28.3 % (39.0-52.0); Hemoglobin 9.5 g/dL (13.0-18.0); Mean Corp Hgb Conc. 33.6 g/dL (33.0-37.0); Mean Corpuscular Hgb 33.5 pg (27.0-31.0); Mean Corpuscular Volume 99.6 fL (80.0-94.0); Nucleated Red Blood Cells % 0 % (-); Platelet Count 10 10^3/uL (130-400); Red Blood Cell Count 2.84 10^6/uL (4.70-6.10); Red Cell Dist. Width 23.6 % (11.5-14.5); White Blood Cell Count 7.2 10^3/uL (4.8-10.8)
[2023-06-15 12:58] LABS: ALT (SGPT) 17 U/L (0-50); AST (SGOT) 27 U/L (17-59); Albumin 3.2 g/dl (3.5-5.0); Alkaline Phosphatase 74 U/L (38-126); Blood Urea Nitrogen 26 mg/dl (9-20); Calcium 9.2 mg/dl (8.4-10.2); Carbon Dioxide 27 mmol/L (22-30); Chloride 108 mmol/L (98-107); Glucose 150 mg/dl (70-99); Potassium 3.6 mmol/L (3.5-5.1); Sodium 138 mmol/L (135-145); Total Bilirubin 0.7 mg/dl (0.2-1.3); Total Protein 6.8 g/dl (6.3-8.2); eGFR 45.34
[2023-06-19 02:24] LABS: Albumin 3.35 g/dL (3.75-5.01); Alpha 1 Globulin 0.36 g/dL (0.19-0.46); Alpha 2 Globulin 0.65 g/dL (0.48-1.05); Free Kappa Light Chains,Quant 224.34 mg/L (3.30-19.40); Free Lambda Light Chains,Quant 1359.67 mg/L (5.71-26.30); IgA 5 mg/dL (68-408); IgG 2499 mg/dL (768-1632); IgM <10 mg/dL (35-263); Immunofixation Electrophoresis IFE Done; Kappa/Lambda Fr Light Ratio 0.16 (0.26-1.65); Monoclonal Protein 2.08 g/dL (<=0.00); Total Protein-Electrophoresis 7.1 g/dL (6.3-8.2)
== END ==
LOC: REG 11:47
PROVIDERS: ATTENDING PHYSICIAN Internal Medicine Hematology & Oncology; FAMILY PHYSICIAN Family Medicine; REFERRING PHYSICIAN Internal Medicine
DX: D61.818 Other pancytopenia (principal); D69.3 Immune thrombocytopenic purpura; C90.00 Multiple myeloma not having achieved remission
CPT/HCPCS: 36415; 71046; 80053; 82784; 83521; 84155; 84165; 85025; 86334

== ENCOUNTER 2023-06-17 09:34 | Outpatient (RCR) | payer MEDICARE, OTHER, SELFPAY ==
[2023-06-17 12:01] VITALS: BP 117/58
[2023-06-17 12:18] VITALS: BP 112/53
[2023-06-17 12:51] VITALS: BP 118/58
== END 2023-06-25 23:59 | disposition home or self-care (01) ==
LOC: OID 09:34
PROVIDERS: ATTENDING PHYSICIAN Internal Medicine Hematology & Oncology; FAMILY PHYSICIAN Family Medicine
DX: D61.818 Other pancytopenia (principal)
CPT/HCPCS: 36430; P9073

== ENCOUNTER 2023-06-22 02:11 | Inpatient (IN) | payer MEDICARE, OTHER, SELFPAY ==
[2023-06-21 23:05] VITALS: BMI 26.7
[2023-06-21 23:14] VITALS: BP 103/55
[2023-06-21 23:16] VITALS: BP 103/55
[2023-06-21 23:25] VITALS: BP 95/47
[2023-06-21 23:37] VITALS: BP 90/53
[2023-06-21 23:40] LABS: Mean Corp Hgb Conc. 34.1 g/dL (33.0-37.0); Mean Corpuscular Volume 96.7 fL (80.0-94.0); Red Blood Cell Count 2.12 10^6/uL (4.70-6.10); Red Cell Dist. Width 23.3 % (11.5-14.5); White Blood Cell Count 4.4 10^3/uL (4.8-10.8)
[2023-06-21 23:46] LABS: Hematocrit 20.5 % (39.0-52.0)
[2023-06-21 23:53] LABS: Platelet Count 0 10^3/uL (130-400)
[2023-06-21 23:55] LABS: Lactic Acid 1.2 mmol/L (0.7-2.0)
[2023-06-21 23:56] VITALS: BP 100/60
[2023-06-21 23:56] LABS: ALT (SGPT) 15 U/L (0-50); AST (SGOT) 20 U/L (17-59); Albumin 2.4 g/dl (3.5-5.0); Alkaline Phosphatase 64 U/L (38-126); Blood Urea Nitrogen 43 mg/dl (9-20); Calcium 7.2 mg/dl (8.4-10.2); Carbon Dioxide 23 mmol/L (22-30); Chloride 109 mmol/L (98-107); Estimated Creatinine Clearance 30 ml/min; Glucose 156 mg/dl (70-99); Potassium 3.2 mmol/L (3.5-5.1); Sodium 140 mmol/L (135-145); eGFR 41.96
[2023-06-22] VITALS (44 sets, daily range): BP systolic 93–141; BP diastolic 46–84; PULSE 82–96; O2SAT 93; BMI 25.8
--- NOTE | 2023-06-22 | ED.GENMED ---
History of Present Illness
General
Chief Complaint: Breathing Problem
Source: patient, family (Daughter at bedside), previous radiology exam (CT of the chest/PE study June 13, 2023 showing no PE. Moderate emphysema. Bilateral pleural effusions. Bandlike opacity left upper lobe with several pulmonary nodules on
the left. Bony vertebral lytic lesions with compression fractures of the thoracic spine. Ultrasound bilateral lower extre) and previous hospital records (Recent hospitalization June 08 to June 13 through treatment of similar shortness of
breath with hypoxia.)
Exam Limitations: none
Time Seen by Provider: 06/21/23 23:08
Nursing documentation reviewed up to this point in time: agreed with
Travel History
Have you had any contact with someone who has COVID-19?: No
Do you have any symptoms of coronavirus? Fever > 100 degrees, chills, cough, shortness of breath, sore throat, loss of taste or smell, muscle aches, or headache?: Yes
Symptoms:: SOB
History of Present Illness
History of Present Illness:
This is an 83-year-old gentleman who resides at home with his . He has history of multiple myeloma with recent hospitalization June 08 to June 13 due to similar shortness of breath found to have symptomatic anemia along with
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 During that hospitalization he received 2 units of packed red blood cells as well as platelets and was transfused a unit of platelets most recently June 17.
Patient required nasal cannula oxygen throughout hospitalization and upon discharge, initially at 2 L but has required up titration in oxygen concentration especially over the past 2 to 3 days and tonight has had persistent dyspnea despite O2 at 5 L
nasal cannula.
He does have history of COPD, remote history of smoking. He has had somewhat mild chronic cough after suffering COVID-19 URI in March but denies increased cough, denies productive cough and has not had a fever.
He has also had some chronic bilateral lower extremity edema, unchanged and venous Doppler bilateral lower extremities on June 13 was negative for DVT.
During most recent hospitalization due to persistent hypoxia and elevated D-dimer CT of the chest performed on June 13 showing no evidence of PE but moderate emphysema, bilateral pleural effusions, 7 mm pulmonary nodules x 2 left lung along with
a new bandlike opacity left upper lobe. There is also note of bony vertebral lytic lesions with compression fractures of T7, T10, T12 along with chronic bilateral pathologic rib fractures.
Patient has had some chronic low back pain, nonradiating and during follow-up visit with his oncologist, Dr. Gardiner on June 17 he was started on tramadol for pain. He was also started on a new chemotherapy agent for his relapsing
plasma cell leukemia, Pomalyst which he began June 18.
He was scheduled for follow-up blood work tomorrow but due to significant progressive dyspnea, progressive generalized weakness he presented to the ED tonight.
Appetite has been fair. He has had no falls. He denies chest pain. He denies dizziness nor lightheadedness but does admit to marked dyspnea with only limited activities.
Past History
Past History
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 Pathologic rib fractures. Pathologic thoracic compression fractures), COPD, GERD, Hypercholesterolemia, Renal failure (Chronic kidney disease stage III),
Hypothyroidism and Other (glaucoma, Anemia, emphysema, Hemorrhoids)
ED Past Surgical History: Orthopedic (Right shoulder surgery) and Other (Hernia, cataracts)
Social History
Tobacco: Former smoker
Alcohol: Occasional
Drug: None
Personal:
Living: with family
Employment: Retired
Family History
Family History: Other (Noncontributory)
Phy Exam
Physical Exam
Physical Exam:
GENERAL: 83-year-old gentleman appears his stated age, awake and alert, appears in mild to moderate distress, moderate resting tachypnea. No cough appreciated. Daughter is at bedside.
EYE: pupils equal and reactive. anicteric. Moderately pale conjunctiva.
NECK: Supple, nontender, no meningismus, no significant adenopathy. Mild JVD.
ENT: oral mucosa is moist. No rhinorrhea.
CARDIAC: Regular rate and rhythm. no murmur.
LUNGS: Moderate resting tachypnea, moderately decreased breath sounds bilateral bases with fine rales one third of the way up bilaterally.
ABDOMEN: Soft, nondistended, without focal tenderness, no r/g, normoactive BS.
NEUROLOGICAL: Alert and oriented x3, no focal neuro deficits.
SKIN: Warm and dry, moderately pale in color, skin intact. Few scattered ecchymotic patches upper trunk, bilateral forearms. No rash.
MUSCULOSKELETAL: Trace to +1 pitting edema bilateral lower extremities, peripheral pulses are full and equal b/l. No palpable tenderness.
PSYCH: Normal and appropriate interaction.
Scores
Heart Failure Risk
Heart Failure Risk Score: Yes
History of Stroke or TIA: No
History of intubation for respiratory distress: No
Heart rate on ED arrival >/= 110: No
SaO2 <90% on arrival on room air: Yes
HR >/=110 during 3min walk test (or too ill to perform test): Yes
ECG has acute ischemic changes: No
Urea >/=12mmol/L (BUN 33.6mg/dL): Yes
Serum CO2>/=35mmol/L: No
Troponin I or T elevated to TX Level (0.4mg/dL): No
NT-proBNP >/=5,000ng/L (5,000pg/ml): No
HF Risk Score: 4
Admission Status: HIGH RISK 26.1% Consider SNF treatment or admission to hospital
Course
Orders/Labs/Results
Orders:
Orders
06/21/23 23:20
Electrocardiogram (*1) Urgent
Reason for Study: Other
Other Reason for Exam: Respiratory Distress
Cardiac Monitoring- Treatment ONCE
EKG- Treatment ONCE
IV Insert/Care/Rem.- Treatment PRN
CR Chest - 2 Views Urgent
Comment:
Reason For Exam: respiratory distress
O2 Therapy [RESP] Urgent
Titrate/Wean O2 to maintain O2 sat greater than (%): 93
Special Instructions: TO MAINTAIN CONTINUOUS O2 SATS >/= 93%
Pulse Ox/cont/shift [RESP] Urgent
Quantity: 1
Special Instructions: continuous pulse ox
06/21/23 23:26
Complete Blood Count/With Diff Urgent
Comprehensive Metabolic Panel Urgent
Magnesium Urgent
Comment: ADD ON
Manual Differential Urgent
NT-proBNP Urgent
Troponin I Urgent
06/21/23 23:33
Lactate Level [Lactic Acid] Urgent
06/21/23 23:50
Blood Bank Products [* Blood Bank Products] Urgent
Blood Bank Products: *Packed RBC Leuko(PRBC's)
Quantity: 2
Transfuse Today: Yes
Reason: Anemia
06/21/23 23:52
Blood Bank Products [* Blood Bank Products] Urgent
Blood Bank Products: *Plt Single Donor Leuko
Quantity: 2
Transfuse Today: Yes
Reason: Thrombocytopenia
Patient will require pre-treatment for transfusion:: No
06/21/23 23:56
Type And Crossmatch Urgent
06/22/23 00:21
Calcium Gluconate 1 gram/100mL [Calcium Gluconate] 1 gram in 100 ml IV ONCE
06/22/23 00:22
Add On- LAB Urgent
Tests Added?: Mg
Potassium Chloride Powder [Klor-Con] 40 meq PO NOW STA
06/22/23 00:32
Furosemide [Lasix] 20 mg IV NOW STA
Abnormal Lab Results
06/21/23
23:26
WBC 4.4 L 10^3/uL
(4.8-10.8)
RBC 2.12 L 10^6/uL
(4.70-6.10)
Hgb 7.0 L D g/dL
(13.0-18.0)
Hct 20.5 L* %
(39.0-52.0)
MCV 96.7 H fL
(80.0-94.0)
MCH 33.0 H pg
(27.0-31.0)
RDW 23.3 H %
(11.5-14.5)
Plt Count 0 L* D 10^3/uL
(130-400)
Segmented Neutrophils 30 L %
(42-75)
Band Neutrophils 18 H %
(0-3)
Eosinophils (Manual) 20 H %
(0-6)
Potassium 3.2 L mmol/L
(3.5-5.1)
Chloride 109 H mmol/L
(98-107)
BUN 43 H mg/dl
(9-20)
Creatinine 1.6 H mg/dL
(0.7-1.3)
Glucose 156 H mg/dl
(70-99)
Calcium 7.2 L mg/dl
(8.4-10.2)
Magnesium 1.4 L mg/dl
(1.6-2.3)
Total Protein 6.0 L g/dl
(6.3-8.2)
Albumin 2.4 L g/dl
(3.5-5.0)
06/21/23 23:26
06/21/23 23:26
Vital Signs
Initial and Last Documented VS:
Initial Vital Signs
BP
103/55
06/21/23 23:14
Last Documented Vital Signs
Temp Pulse Resp BP Pulse Ox
98.8 F 96 28 100/53 97
06/21/23 23:16 06/22/23 00:15 06/22/23 00:15 06/22/23 00:00 06/22/23 00:15
MDM/Problems Addressed
Differential Diagnosis Includes:
Concern for recurrent symptomatic anemia, pancytopenia, progression of bilateral pleural effusions, CHF, pneumonia, exacerbation COPD.
PE is a consideration but was also consideration just last week and ruled out with negative lower extremity DVT study as well as negative PE study.
Mild to moderate resting tachypnea on nasal cannula oxygen at 4 L, will titrate up to maintain pulse ox greater than 95%.
Labs are pending including lactic acid, BNP, troponin.
Patient is afebrile and has had no reported fever nor chills. Blood cultures not indicated.
Will check EKG, chest x-ray.
Will consider nebulizer treatment however no wheezing or rhonchi on exam.
Chronic conditions affecting care: COPD, Immunosuppressed, Kidney disease and Cancer (Relapsing plasma cell leukemia with pancytopenia-recent initiation of chemotherapy-Pomalyst 3 days ago.)
Acute Exacerbation and/or Progression of Chronic Illness: Immunosuppressed, Kidney disease (Creatinine of 1.6 has trended up slightly from 1.5 1 week ago) and Cancer (Marked pancytopenia with hemoglobin drifting down to 7 and platelet count on
automated machine of 0. Likely to count of 4.4.)
*Radiology
Radiology exam reviewed: preliminary read by ED provider (Chest x-ray shows progression of bilateral pleural effusions noted 1 week ago along with increased interstitial markings bilateral mid to lower lung de la torre concerning for an element of CHF.
Left midlung field platelike atelectasis/density is unchanged.)
*Pulse Oximetry
Patient hypoxic: yes
*EKG
Interpreted by ED Provider?: Yes
Comparison EKG: no changes (Unchanged from previous June 11, 2023 save for heart rate has increased from 92 to now 98)
Rate: normal
Rhythm: sinus
Adel: normal axis
Interval: normal interval
QRS Pattern: normal QRS and low voltage
Ischemia: no ischemia
*Operations Intelligence Interpretation
Rate: normal
Interpretation: normal
Rhythm: sinus
*Critical Care Note
Total Time (30-74mins, 75-104mins- exclusive of procedures): 30
comment:
Critical care statement: A total of 30 minutes of critical care time was provided for this patient. This includes management of unstable vital signs, evaluation of the patient at bedside, reviewing the patient's pertinent medical records, discussion
with consultants, review of old EKGs and review of pertinent medical records. This time with separate from time utilized to perform the aforementioned documented procedures
Comment
Comment:
With progressive severe pancytopenia, current platelet count of 0, patient is at significant risk for severe spontaneous bleeding.
At risk for opportunistic infections, at risk for progressive organ dysfunction related to progressive anemia.
He has been typed and crossed for 2 units packed red blood cells, 2 packs of platelets but unfortunately, due to antibody formation, type and crossmatch of blood products has been problematic and not readily available in-house.
Mild hypokalemia and hypocalcemia�have been repleted.
Chest x-ray shows progression of bilateral pleural effusions with an element of CHF that is new compared to previous film 1 week ago. BNP has trended up from 600 to now 700 but markedly increased from 120 September 2021.
After potassium and calcium repletion will give a small IV dose of Lasix to initiate gentle diuresis.
I have reached out to oncology, Dr. Gardiner aware. She agrees with gentle diuresis and recommends holding pomalidomide.
ED Attending Note
-
Portions of this chart may have been created with voice recognition software.� Occasional wrong word or��sound alike� substitutions may have occurred due to the inherent limitations of voice recognition software.
Discharge Plan
Departure
Patient Disposition: Admit
Date of Disposition: 06/22/23
Time of Disposition: 00:33
Admit to: IMU
Admit to doctor: Vidal
Presentation/result/management discussed w/ accepting MD/DO: Hospitalist
Condition: Serious
Discharge Problem:
Acute and chronic respiratory failure with hypoxia, recurrent severe pancytopenia, progressive b/l pleural effusions, Acute CHF (congestive heart failure), Plasma cell leukemia in relapse
Prescriptions:
No Action
latanoprost 1 DROP drops
1 drp BOTH EYES HS
Patient Comments:
both eyes
tamsulosin 0.4 MG capsule
0.8 mg PO HS
Hold Instructions: Resume on 03/20/23.
polyethylene glycol 3350 17 GRAMS powder in packet
17 grams PO DAILYPRN PRN (Reason: constipation)
finasteride 5 MG tablet
5 mg PO HS
sennosides [senna] 8.6 MG tablet
17.2 mg PO BIDPRN PRN (Reason: constipation)
docusate sodium 100 MG capsule
100 mg PO BIDPRN PRN (Reason: constipation)
aspirin 81 MG tablet,delayed release (DR/EC)
81 mg PO DAILY@1700
Hold Instructions: Continue hold on aspirin due to thrombocytopenia anemia. Follow up with oncology or primary care provider to determine when safe to resume.
simvastatin 40 MG tablet
20 mg PO HS
carvedilol 6.25 mg Tablet
6.25 mg PO BID
acyclovir 400 mg tablet
400 mg PO BID
lorazepam 0.5 mg tablet
0.5 mg PO HS
Patient Comments:
06/08/2023: last filled 05/18/23, 60 tabs for 30 days from [facility]#[id number]
gabapentin 300 mg capsule
600 mg PO HS
dorzolamide-timolol 22.3-6.8 mg/mL drops
1 drp BOTH EYES BID
montelukast 10 mg tablet
10 mg PO USEASDIRECTD
Rx Instructions:
TAKE 1 TABLET THE NIGHT BEFORE, THE NIGHT OF, AND THE NIGHT AFTER EACH CHEMO TREATMENT
acetaminophen 325 mg Tablet
650 mg PO Q4HPRN PRN (Reason: mild pain/fever)
acetaminophen 500 mg Tablet
1,000 mg PO DAILYPRN PRN (Reason: prior to chemo)
B-complex with vitamin C Tablet
1 tab PO DAILY
fluticasone propion-salmeterol [Advair Diskus] 250-50 mcg/dose Blister With Device
1 inh INHALATION R BID
bortezomib [Velcade] 3.5 mg Recon Soln
3 mg SC Q21D
Rx Instructions:
gets every 21 days
cholecalciferol (vitamin D3) 25 mcg (1,000 unit) Tablet
25 mcg PO DAILY
calcium carbonate-vitamin D3 [Calcium 600 + D(3)] 600 mg-10 mcg (400 unit) Tablet
1 tab PO BID
ascorbic acid (vitamin C) [Vitamin C] 500 mg tablet
500 mg PO DAILY
Patient Comments:
on hold
Prolia 60 mg/mL Syringe
60 mg SC [id number]
furosemide 40 mg tablet
20 mg PO DAILY PRN (Reason: swelling)
dexamethasone 4 mg tablet
4 mg PO . DIRECTED
Rx Instructions:
Take 4-5 tabs (16-20mg) once before chemo
pantoprazole [Protonix] 40 mg tablet,delayed release (DR/EC)
40 mg PO DAILY@1700
pomalidomide 2 mg Capsule
2 mg PO DAILY
tramadol 50 mg Tablet
Referrals:
Ady Diaz MD [Family Provider] -
Interventions
Interventions:
*Risk Screen - Suicide Last Done: 06/21/23 23:16
*General Assessment Last Done: 06/21/23 23:45
*Neglect/Abuse Screening Last Done: 06/21/23 23:45
*ED COVID-19 Vaccine History Last Done: 06/21/23 23:45
ED- Cardiac Assessment Last Done: 06/21/23 23:45
ED- Pulmonary Assessment Last Done: 06/21/23 23:45
[2023-06-22 00:08] LABS: NT-proBNP 702 pg/ml; Troponin I < 0.012 ng/ml
[2023-06-22] MEDS: KLOR-CON 40 MEQ PO (00:29)
[2023-06-22] MEDS: CALCIUM GLUCONATE 100 IV ×2 (00:29→14:41)
[2023-06-22 00:44] LABS: Absolute Neutrophils -Man Diff 2.1 10^3/uL (1.4-6.5); Anisocytosis 2+; Band Neutrophils 18 % (0-3); Eosinophils 20 % (0-6); Lymphocytes 25 % (20-51); Monocytes 7 % (2-9); Normal RBC Morphology No; Platelets Checked Yes; Segmented Neutrophils 30 % (42-75)
[2023-06-22 00:46] LABS: Ovalocytes 2+; Tear Drop Red Blood Cells 1+; Total Cells Counted 100; Toxic Granulation 2+; Vacuolated Segs 1+
[2023-06-22 00:48] LABS: Acanthocytes Occasional
[2023-06-22 00:52] LABS: Target Cells Occasional
[2023-06-22] MEDS: LASIX 20 MG IV ×3 (00:55→18:30)
[2023-06-22 00:59] LABS: Magnesium 1.4 mg/dl (1.6-2.3)
--- NOTE | 2023-06-22 02:00 | HPS.HSE ---
Family Physician
-
Family Physician: Ady Diaz
Chief Complaint
-
SOB
History of Present Illness
Patient is an 83y M with PMH significant for multiple myeloma, plasma cell leukemia and recent hospitalization for BERTA and pulmonary edema who presents to ED complaining of SOB. Patient was recently hospitalized 06/08 - 06/13 secondary to
pancytopenias. He was transfused mutliple units of blood products during that visit and developed pleural fluid / hypoxemia requiring diuresis. Echo during that hospitalization was unremarkable. Patient was discharged to home on Lasix which he
takes only 'as needed' for ankle swelling.
Patient states that [facility] and he received platelet transfusion as well as 'fluids'.
Patient states that he was recently started on Pomalyst for his MM - has taken 2-3 doses thus far. No other new medications.
Over the past several days, he has felt progressively more short of breath - especially with exertion / activity.
Patient denies any chest pain, productive cough, fevers / chills, etc.
He denies any gross bleeding, bruising, etc.
He does state that he has had diarrhea for the past week or so. He notes that this is neither bloody nor black. Stool is described as watery.
In the ED, patient is noted to be dyspneic and is requiring supplemental O2.
Medical History
Past Medical History
Past Medical History: Reports Other
Additional Past Medical History:
Essential Hypertension
Hyperlipidemia
CKD Stage II
Multiple Myeloma
Plasma Cell Leukemia
Chronic Thrombocytopenia
COPD
Lymphedema
Hypothyroidism
BPH
Glaucoma
Past Surgical History: Reports Other
Additional Past Surgical History:
Hernia Repair
Shoulder Surgery
Social History
Tobacco: Non-smoker
Alcohol: None
Drug: None
Family History
Family History: Not pertinent
Allergies / Home Medications
Allergies reflects when Allergies were last updated in [employer].
Home Medications with original date entered in [employer]
Allergy/Medication List:
Allergies
Allergy/AdvReac Type Severity Reaction Status Date / Time
No Known Allergies Allergy Verified 06/21/23 23:06
Home Medications
latanoprost 0.005 % eye drops 1 drp BOTH EYES HS Eye condition 09/09/21
tamsulosin 0.4 mg capsule 0.8 mg PO HS Urinary Issue 09/09/21
docusate sodium 100 mg capsule 100 mg PO BIDPRN PRN constipation 09/19/21
finasteride 5 mg tablet 5 mg PO HS Urinary Issue 09/19/21
polyethylene glycol 3350 17 gram oral powder packet 17 grams PO DAILYPRN PRN constipation 09/19/21
simvastatin 40 mg tablet 20 mg PO HS High Cholesterol 10/16/21
carvedilol 6.25 mg tablet 6.25 mg PO BID Blood Pressure 02/20/22
acetaminophen 325 mg tablet 650 mg PO Q4HPRN PRN mild pain/fever 03/14/23
acyclovir 400 mg tablet 400 mg PO BID prophylaxis for herpes zoster 03/14/23
dorzolamide 22.3 mg-timolol 6.8 mg/mL eye drops 1 drp BOTH EYES BID Eye Condition 03/14/23
gabapentin 300 mg capsule 600 mg PO HS Pain 03/14/23
lorazepam 0.5 mg tablet 0.5 mg PO HS mental health/sleep 03/14/23
montelukast 10 mg tablet 10 mg PO USEASDIRECTD Lung/Breathing Issues 03/14/23
fluticasone 250 mcg-salmeterol 50 mcg/dose blistr powdr for inhalation (Advair Diskus) 1 inh inhalation R BID Lung/Breathing Issues 04/18/23
dexamethasone 4 mg tablet 4 mg PO . DIRECTED Anti-Inflammatory 06/08/23
furosemide 40 mg tablet 20 mg PO DAILY PRN swelling 06/08/23
pantoprazole 40 mg tablet,delayed release (Protonix) 40 mg PO DAILY@1700 Gastrointestinal Issue 06/08/23
pomalidomide 2 mg capsule 2 mg PO DAILY 06/17/23
daratumumab 20 mg/mL intravenous solution 1,800 mg IV MONTHLY 06/22/23
tramadol 50 mg tablet 50 mg PO BIDPRN PRN Pain 06/22/23
Review of Systems
-
History Source: Patient
A 12 point ROS was completed and negative except as noted: Yes
Constitutional: Reports Fatigue; Denies Fever or Chills
EENT: Denies Sore Throat
Respiratory: Reports Trouble Breathing; Denies Cough or Hemoptysis
Cardiac: Denies Chest Pain, Diaphoresis or Palpitations
Abdomen/GI: Reports Diarrhea; Denies Abdominal Pain, Nausea, Vomiting, Bloody Stools or Black Stools
: Denies Dysuria or Frequency
Musculoskeletal: Reports Edema and Other (Low Back pain)
Neurological: Denies Dizzy or Headache
Hematologic/Lymphatic: Denies Bleeding or Bruising
Psych: Denies Depression or Anxiety
Physical Exam
Vital Signs
Vital Signs
Temp Pulse Resp BP Pulse Ox
98.8 F 96 28 100/53 97
06/21/23 23:16 06/22/23 00:15 06/22/23 00:15 06/22/23 00:00 06/22/23 00:15
Physical Exam
General: Other (83y M in mild distress due to dyspnea.)
HEENT: Moist mucous membranes and PERRLA
Respiratory: Other (decreased at bases with few bibasilar rales.)
Cardiac: S1/S2, Regular Rhythm and Murmur (II/ MARLEY)
GI: Soft, Non Tender, Non Distended and Normal Bowel Sounds
Musculoskeletal: No Clubbing, No Cyanosis and Other (Few scattered petechiae over lower extremities. 1+ pitting edema b/l LEs.)
Neuro: AO x 3
Laboratory Results
-
06/21/23 23:26
06/21/23 23:26
Laboratory Results
Lactic Acid 1.2 mmol/L (0.7-2.0) 06/21/23 23:33
Total Bilirubin 1.0 mg/dl (0.2-1.3) 06/21/23 23:
AST 20 U/L (17-59) 06/21/23 23:
ALT 15 U/L (0-50) 06/21/23 23:
Alkaline Phosphatase 64 U/L (38-126) 06/21/23 23:
Troponin I < 0.012 ng/ml 06/21/23:
Impression/Plan
-
A/P: Patient is an 83y M with PMH significant for MM / plasma cell leukemia and recent admission for cytopenias and pleural effusions who presents to ED complaining of worsening SOB.
Pulmonary Edema / Bilateral Pleural Effusions
Suspected HFpEF
Acute Hypoxemic Respiratory Insufficiency secondary to the above
- Admit for further evaluation and treatment.
- Patient with significant weight gain since last admission, pulm edema / effusions on CXR and mild edema on exam.
- Is on home Lasix only PRN.
- IV Lasix now and daily.
- Follow I/Os, daily weights, etc.
- Will ask Cardiology to see for further evaluation and treatment.
- Patient may benefit from standing diuretic dosing moving forward.
Multiple Myeloma
Plasma Cell Leukemia
Pancytopenias
- Patient with decreases in all cell lines.
- Transfusions of PRBCs and platelets ordered in the ED - but will take some time to obtain appropriate blood products given antibodies.
- Hold further Pomalyst.
- Heme / Onc evaluation for additional recommendations.
- Continue prophylactic valacyclovir / immunosuppression precautions.
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
- SCr = 1.6 compared to baseline / discharge value of 1.1.
- SCr was also 1.6 at the time of prior admission.
- Diuresis was recommended, but appears that patient received only a single dose of IV Lasix and several units of blood products.
- ? positive or negative fluid balance during that admission.
- Follow for changes with current attempts at diuresis.
COPD without Acute Exacerbation
- No wheezing / increased cough / etc.
- Continue inhaled corticosteroid and albuterol PRN.
- Follow for any changes.
Benign Hypertension
- Decrease carvedilol to allow for diuresis.
- Adjust regimen as needed.
BPH
- Stable. Continue tamsulosin.
- DO NOT straight cath given risk of bleeding from severe thrombocytopenia.
DVT Prophylaxis: SCDs
Code Status: DNR
--- NOTE | 2023-06-22 03:29 | PTCARENOTE ---
Arrived from ED with DNR bracelet in place.
--- NOTE | 2023-06-22 04:30 | PTCARENOTE ---
Pt arrived from ED to room 3682 ~0320. Pt stood and pivoted from stretcher to bed with assist x1 without incidence. Pt is AAO3, denies pain. Lung sounds are clear throughout and decreased in b/l base, pt is TERESA, pox 94-98% on 4L O2 nasal cannula, oc
nonproductive cough noted. Telemetry rhythm reveals SR, HR 70-80's, edema noted in b/l lower extremities. +BS, abdomen nontender. Pt reports recent loose stools, pt placed on enhanced precautions. Pt stated he needed to urinate and requested bedside
commode. Pt voided large amount urine onto floor, small amount collected in BSC. Skin w scattered petechiae throughout body, otherwise intact. L AC int flushed and patent, prehospital site. New int started L FA for blood transfusions. Prehospital
site to be D/C'd post platelet transfusions.
Order noted for IMU status. Order reviewed for 2 units PRBC, 2 units platelets.
bed alarm on bed and monitoring for pt safety. Call elam within reach. Will monitor closely.
[2023-06-22] MEDS: MAGNESIUM SULFATE 50 IV (06:37)
--- NOTE | 2023-06-22 07:48 | CON.CAR ---
Addendum entered and electronically signed by Ayaan Hoffman MD 06/22/23 11:49:
I saw and examined the patient.
The MEDICAL RECORDS TECHNICIAN's note was reviewed and I agree with the note.
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
a chief complaint of shortness of breath. He appears to be mildly volume overloaded and will likely require diuretics with infusions.
- IV diuresis dry weight appears ~155 lbs, daily weights
- anemia per primary and hem/onc
- new BERTA baseline Cr of 1.5 baseline is 1.1
Original Note:
Consultation
Consultation Request
Date/Time Consultation Requested: 06/22/23 03:20
Date/Time Consultation Performed: 06/22/23 07:45
Requesting Provider: Dr. Drake
Performing Provider: KELLIE Medina for Dr. Hoffman
Reason for Consultation: Acute heart failure
Medical History
-
Chief Complaint: Shortness of breath
History of Present Illness:
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
presents with a chief complaint of shortness of breath. His shortness of breath gets worse with exertional activities but does not completely resolve with rest. He denies orthopnea and PND. He reports receiving platelets and intravenous fluids at
the infusion center on Thursday (06/17/2023).
I reviewed his most recent hospitalization . He received multiple transfusions and then developed hypoxemia requiring diuresis. Cardiology did not evaluate the patient during his hospitalization. He had an echocardiogram during that
hospital stay which did not have any acute findings. He was discharged home with as needed furosemide for lower extremity edema. He states he has not taken any furosemide but would need to check with his to confirm.
Past Medical History
Past Medical History: Cancer (MM progressed to leukemia), CHF, COPD, HTN and Other (LAFB)
Past Surgical History: Orthopedic
Social History
Tobacco: Former Smoker
Alcohol: None
Drug: None
Personal:
Living: With Family
Employment: Retired
Family History
Family History: Reviewed & Not Pertinent
Allergies / Home Medications
Allergy/AdvReac Type Severity Reaction Status Date / Time
No Known Allergies Allergy Verified 06/21/23 23:06
Medication Instructions Recorded Confirmed Type
latanoprost 0.005 % eye drops 1 drp BOTH EYES HS Eye condition 09/09/21 06/22/23 History
tamsulosin 0.4 mg capsule 0.8 mg PO HS Urinary Issue 09/09/21 06/22/23 History
docusate sodium 100 mg capsule 100 mg PO BIDPRN PRN constipation 09/19/21 06/22/23 History
finasteride 5 mg tablet 5 mg PO HS Urinary Issue 09/19/21 06/22/23 History
polyethylene glycol 3350 17 gram 17 grams PO DAILYPRN PRN 09/19/21 06/22/23 History
oral powder packet constipation
simvastatin 40 mg tablet 20 mg PO HS High Cholesterol 10/16/21 06/22/23 History
carvedilol 6.25 mg tablet 6.25 mg PO BID Blood Pressure 02/20/22 06/22/23 History
acetaminophen 325 mg tablet 650 mg PO Q4HPRN PRN mild 03/14/23 06/22/23 History
pain/fever
acyclovir 400 mg tablet 400 mg PO BID prophylaxis for 03/14/23 06/22/23 History
herpes zoster
dorzolamide 22.3 mg-timolol 6.8 1 drp BOTH EYES BID Eye Condition 03/14/23 06/22/23 History
mg/mL eye drops
gabapentin 300 mg capsule 600 mg PO HS Pain 03/14/23 06/22/23 History
lorazepam 0.5 mg tablet 0.5 mg PO HS mental health/sleep 03/14/23 06/22/23 History
montelukast 10 mg tablet 10 mg PO USEASDIRECTD 03/14/23 06/22/23 History
Lung/Breathing Issues
fluticasone 250 mcg-salmeterol 50 1 inh inhalation R BID 04/18/23 06/22/23 History
mcg/dose blistr powdr for Lung/Breathing Issues
inhalation (Advair Diskus)
dexamethasone 4 mg tablet 4 mg PO . DIRECTED 06/08/23 06/22/23 History
Anti-Inflammatory
furosemide 40 mg tablet 20 mg PO DAILY PRN swelling 06/08/23 06/22/23 History
pantoprazole 40 mg tablet,delayed 40 mg PO DAILY@1700 06/08/23 06/22/23 History
release (Protonix) Gastrointestinal Issue
pomalidomide 2 mg capsule 2 mg PO DAILY 06/17/23 06/22/23 History
daratumumab 20 mg/mL intravenous 1,800 mg IV MONTHLY 06/22/23 06/22/23 History
solution
tramadol 50 mg tablet 50 mg PO BIDPRN PRN Pain 06/22/23 06/22/23 History
Review of Systems
-
History Source: Patient
All other systems: Negative unless noted
Constitutional: Fatigue
Respiratory: Trouble Breathing
Abdomen/GI: Diarrhea
Physical Exam
Vital Signs
Temp Pulse Resp BP Pulse Ox
97.5 F 75 18 100/50 96
06/22/23 07:31 06/22/23 07:31 06/22/23 07:31 06/22/23 07:31 06/22/23 07:00
Lab Results
Troponin I < 0.012 ng/ml 06/21/23 23:26
Hca-T-Bqxohtyyzen Pept 702 pg/ml 06/21/23 23:26
Physical Exam
General: Well Developed, Well Nourished, No Apparent Distress and Comfortable
HEENT: Normocephalic, Anicteric and Moist Mucous Membranes
Respiratory: Crackles and Accessory Resp Muscle Use
Cardiac: S1/S2 and Regular Rhythm; Negative Peripheral Edema
Breast: Deferred by me
GI: Soft, Non Tender, Non Distended and Normal Bowel Sounds
Rectal: Deferred by Provider
Genito-urinary: No Costovertebral Tender
Musculoskeletal: No Clubbing and No Cyanosis
Skin: Warm and Dry
Neuro: AO x 3
Hematologic/Lymphatic: No Lymphadenopathy
Psych: Calm
Impression / Plan
-
HFpEF (EF 60-65%), acute on chronic
-Diuresis with furosemide 20mg IV daily
-Will require standing diuretic with infusions
-Recent echo stable
-Trend daily weight, I/Os, and BMP
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
-Recently started on recently started on Pomalyst
-Heme/Onc consulted
HTN, beta georgiana decreased to allow for diuresis
Pancytopenia, chronic, platelet count ZERO yesterday, labs pending
CKD, Stage III, follow with diuresis
Mild tricuspid regurgitation
COPD, follows with Dr. Constantino
Data Reviewed
-
EKG: Report Reviewed by me (Sinus rhythm, low voltage QRS, rate 98)
Radiology: Report Reviewed by me (CXR: Chronic obstructive pulmonary disease with small bilateral pleural effusions and borderline pulmonary edema.)
Medical Tests (Nuc Med, Echo etc): Report Reviewed by me (Echo as above)
Labs: Labs Reviewed by me
Old Records: Reviewed
[2023-06-22] MEDS: COREG 3.125 MG PO ×2 (08:05→19:55)
[2023-06-22] MEDS: KCL 20 MEQ PO ×2 (08:05→22:55)
[2023-06-22] MEDS: COSOPT EYE DROPS 1 DROP BOTH EYES ×2 (08:06→19:55)
[2023-06-22] MEDS: ZOVIRAX 400 MG PO ×2 (08:06→19:55)
--- NOTE | 2023-06-22 08:15 | PTCARENOTE ---
Pt AAOx3. 1 unit of platelets infusing. Pt on 4L NC, dyspneic. oxygen saturation 96%. Bed alarm in place. pt educated on need to ring call [facility] when ambulating/OOB. see worklist
[2023-06-22] MEDS: PULMICORT 0.5 MG INH ×2 (08:36→21:00)
[2023-06-22] MEDS: VENTOLIN NEBULES 2.5 MG INH ×2 (08:41→15:42)
[2023-06-22 08:52] LABS: % Eosinophils 21.5 % (0-6); % Immature Granulocytes 1.3 % (0-0.5); % Lymphocytes 27.5 % (20.5-51.1); % Monocytes 6.6 % (1.7-9.3); % Neutrophils 43.1 % (42.2-75.2); Absolute Eosinophils 1.4 10^3/uL (0-0.7); Absolute Immature Granulocytes 0.1 10^3/uL (0-0.05); Absolute Lymphocytes 1.7 10^3/uL (1.2-3.4); Absolute Monocytes 0.4 10^3/uL (0.1-0.6); Absolute Neutrophils 2.7 10^3/uL (1.4-6.5); Mean Corp Hgb Conc. 35.4 g/dL (33.0-37.0); Mean Corpuscular Hgb 36.4 pg (27.0-31.0); Mean Corpuscular Volume 102.7 fL (80.0-94.0); Mean Platelet Volume 10.6 fL (7.4-10.4); Nucleated Red Blood Cells % 0 % (-); Red Blood Cell Count 1.84 10^6/uL (4.70-6.10); Red Cell Dist. Width 22.9 % (11.5-14.5); White Blood Cell Count 6.3 10^3/uL (4.8-10.8)
[2023-06-22 08:59] LABS: Hematocrit 18.9 % (39.0-52.0); Hemoglobin 6.7 g/dL (13.0-18.0); Platelet Count 27 10^3/uL (130-400)
--- NOTE | 2023-06-22 09:08 | W.PN.HOSP.TC ---
Today's Communication/Plan
-
Blood and platelet transfusions. Diuretics.
Assessment / Plan
Assessment / Plan
Physical exam:
General: Well Developed, Well Nourished and No Apparent Distress
HEENT: Normocephalic, Atraumatic and Moist Mucous Membranes
Respiratory: Clear to Auscultation; Negative Wheezes, Rales or Rhonchi
Cardiac: Regular Rhythm and S1/S2
GI: Soft, Nontender and Nondistended
Musculoskeletal: No Clubbing, No Cyanosis and No Edema
Neuro: Awake, Alert and Oriented
Psych: Calm
A/P:
Pulmonary Edema / Bilateral Pleural Effusions
Suspected HFpEF
Acute Hypoxemic Respiratory Insufficiency secondary to the above
�- Admit for further evaluation and treatment.
�- Patient with significant weight gain since last admission, pulm edema / effusions on CXR and mild edema on exam.
�- Is on home Lasix only PRN.
�- IV Lasix now and daily.
�- Follow I/Os, daily weights, etc.
�- Will ask Cardiology to see for further evaluation and treatment. Cardiology evaluated patient today and recommends continue IV diuresis (dry weight around 155 pounds)
�- Patient may benefit from standing diuretic dosing moving forward.
-Updated daughter today (CM works here in our hospital)
Multiple Myeloma
Plasma Cell Leukemia
Pancytopenias
�- Patient with decreases in all cell lines.
�- Transfusions of PRBCs and platelets ordered in the ED - but will take some time to obtain appropriate blood products given antibodies.
�- Hold further Pomalyst.
�- Heme / Onc evaluation for additional recommendations.
�- Continue prophylactic valacyclovir / immunosuppression precautions.
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
�- SCr = 1.6 compared to baseline / discharge value of 1.1. Today creatinine 1.5
�- SCr was also 1.6 at the time of prior admission.
�- Diuresis was recommended, but appears that patient received only a single dose of IV Lasix and several units of blood products.
�- ? positive or negative fluid balance during that admission.
�- Follow for changes with current attempts at diuresis.
COPD without Acute Exacerbation on home oxygen. Acute on chronic hypoxic respiratory failure.
-He typically uses 2 L of oxygen but he increased to 5 L prior to admission. He is currently on 3 to 4 L.
�- No wheezing / increased cough / etc.
�- Continue inhaled corticosteroid and albuterol PRN.
�- Follow for any changes.
Benign Hypertension
�- Decrease carvedilol to allow for diuresis.
�- Adjust regimen as needed.
BPH
�- Stable.� Continue tamsulosin.
�- DO NOT straight cath given risk of bleeding from severe thrombocytopenia.
DVT Prophylaxis:� SCDs
Code Status:� DNR
Anticipated Discharge: > 48 hours
Subjective/Interval History
-
Date of Service: June 22, 2023
Patient is still short of breath but overall better, complains of generalized fatigue, blood pressure on the low side, no chest pain. No active bleeding. Afebrile
Objective Data
-
Labs:
Laboratory Results
06/21/23 06/22/23
23:26 08:36
WBC 4.4 L 6.3
Hgb 7.0 L D 6.7 L*
Hct 20.5 L* 18.9 L*
Plt Count 0 L* D 27 L* D
Sodium 140 Pending
Potassium 3.2 L Pending
Chloride 109 H Pending
Carbon Dioxide 23 Pending
BUN 43 H Pending
Creatinine 1.6 H Pending
Glucose 156 H Pending
Calcium 7.2 L Pending
Total Bilirubin 1.0
AST 20
ALT 15
Alkaline Phosphatase 64
Vital Signs:
Vital Signs
Temp Pulse Resp BP Pulse Ox
97.5 F 78 20 93/51 100
06/22/23 07:31 06/22/23 09:00 06/22/23 09:00 06/22/23 08:05 06/22/23 09:00
I&O
06/21/23 06/22/23 06/23/23
06:59 06:59 06:59
Intake Total 636 / 636 257 / 257
Output Total 150 / 150
Balance 486 / 486 257 / 257
[2023-06-22 09:26] LABS: Blood Urea Nitrogen 45 mg/dl (9-20); Calcium 6.4 mg/dl (8.4-10.2); Carbon Dioxide 23 mmol/L (22-30); Chloride 106 mmol/L (98-107); Estimated Creatinine Clearance 32 ml/min; Glucose 205 mg/dl (70-99); Potassium 4.8 mmol/L (3.5-5.1); Sodium 138 mmol/L (135-145); eGFR 45.34
--- NOTE | 2023-06-22 14:48 | CM ---
Chart reviewed.
Currently receiving treatment for multiple myeloma
Pt lives in a ranch style home with his .
Independent, driving prior to admission
Has home O2, unsure of provider
Has had [facility] in past
PCP - Dr Serena Diaz
Pharm - [facility]
CM will follow for d/c needs
Plan - anticipate home to previous setting - needs tbd
--- NOTE | 2023-06-22 15:45 | PTCARENOTE ---
Pt complaining of SOB with tachypnea and labored breathing. Resp therapist notified to administer PRN breathing treatment. Pt on 4L NC with O2 saturation 93%. 2U PRBC now ready for transfusion. To be administered- see TAR
[2023-06-22] MEDS: PROTONIX 40 MG PO (16:20)
--- NOTE | 2023-06-22 20:00 | PTCARENOTE ---
Patient received in bed, AAOX3, GAMBELL. NSR on monitor, afebrile, blood pressure as documented. Weak but palpable pulses throughout, +2 edema noted to bilateral lower extremities. Lungs diminished with scattered expiratory wheezing L>R, pulse ox 96%
on 4L. + TERESA, + tachypnea. Abdomen round with positive bowel sounds. Voiding clear yellow urine. Scattered petichae noted. #22 g in right wrist flushed and patent, #20 g in left forearm with PRBCs infusing. Plan of care discussed, call [facility]
within reach
--- NOTE | 2023-06-22 21:18 | PTCARENOTE ---
PRBCs completed, patient resting in bed
--- NOTE | 2023-06-22 21:49 | CON.ONC ---
Impression
Impression
Multiple myeloma/plasma cell leukemia, recently with progressive disease
Volume overload from transfusions
Plan
Plan
Pt with more than 18-month history of multiple myeloma, plasma cell leukemia at diagnosis.
This transfusion requirement is new for him.
Suggest bone marrow biopsy, exclude a separate process such as myeloid disorder, burned out marrow, other. It can be otherwise difficult to tell whether counts are low due to treatment or underlying disease.
Case d/w pt's daughter Na Mckeon. She will speak with her siblings and let us know whether they are amenable to proceeding. Inpt marrow has been approved by Dr. Gonzalez.
Suggest pulsed steroids, Dex 40 mg daily x 4. Do marrow first if family in agreement.
Transfuse PRN Hgb< 7, Plt<15K.
DIC panel, hemolysis serologies.
Pt known to Dr. Ayon at [place] as well as Dr. Gardiner.
Thank you for consult, will follow with you.
Patient History
History of Present Illness
Pt with hx multiple myeloma, recently with disease progression warranting change in therapy. He had been on Revlimid/Darzalex. Revlimid held since March. Beginning 06/09, he started with tranfusion requirement and since then has required 4
units PRBC's, 6 units platelets. He started Pomalyst 06/18. Came to ED with hypoxic respiratory failure, progressive cytopenias, CHF/volume overload possibly from transfusions. He admits to new low back pain starting about 2 weeks ago, states up
and down backs of legs, hurts to walk. Denies fevers, chills. Denies bleeding.
Past-Medical/Surgical History
PMHx:
Essential Hypertension
Hyperlipidemia
CKD Stage II
Multiple Myeloma
Plasma Cell Leukemia
Chronic Thrombocytopenia
COPD
Lymphedema
Hypothyroidism
BPH
Glaucoma
PSHx:
Hernia Repair
Shoulder Surgery
Social History
Tobacco: Non-smoker
Alcohol: None
Drug: None
Family History
Family History: Not pertinent
Patient Medication
Medication Instructions Recorded Confirmed Last Taken Type
latanoprost 0.005 % eye drops 1 drp BOTH EYES HS Eye condition 09/09/21 06/22/23 06/16/23 History
tamsulosin 0.4 mg capsule 0.8 mg PO HS Urinary Issue 09/09/21 06/22/23 06/16/23 History
docusate sodium 100 mg capsule 100 mg PO BIDPRN PRN constipation 09/19/21 06/22/23 10/16/21 History
finasteride 5 mg tablet 5 mg PO HS Urinary Issue 09/19/21 06/22/23 06/17/23 History
polyethylene glycol 3350 17 gram 17 grams PO DAILYPRN PRN 09/19/21 06/22/23 Unknown History
oral powder packet constipation
simvastatin 40 mg tablet 20 mg PO HS High Cholesterol 10/16/21 06/22/23 06/16/23 History
carvedilol 6.25 mg tablet 6.25 mg PO BID Blood Pressure 02/20/22 06/22/23 06/17/23 History
acetaminophen 325 mg tablet 650 mg PO Q4HPRN PRN mild 03/14/23 06/22/23 Unknown History
pain/fever
acyclovir 400 mg tablet 400 mg PO BID prophylaxis for 03/14/23 06/22/23 06/17/23 History
herpes zoster
dorzolamide 22.3 mg-timolol 6.8 1 drp BOTH EYES BID Eye Condition 03/14/23 06/22/23 06/17/23 History
mg/mL eye drops
gabapentin 300 mg capsule 600 mg PO HS Pain 03/14/23 06/22/23 2 Weeks Ago History
~05/25/23
lorazepam 0.5 mg tablet 0.5 mg PO HS mental health/sleep 03/14/23 06/22/23 06/16/23 History
montelukast 10 mg tablet 10 mg PO USEASDIRECTD 03/14/23 06/22/23 03/12/23 History
Lung/Breathing Issues
fluticasone 250 mcg-salmeterol 50 1 inh inhalation R BID 04/18/23 06/22/23 06/08/23 History
mcg/dose blistr powdr for Lung/Breathing Issues
inhalation (Advair Diskus)
dexamethasone 4 mg tablet 4 mg PO . DIRECTED 06/08/23 06/22/23 Unknown History
Anti-Inflammatory
furosemide 40 mg tablet 20 mg PO DAILY PRN swelling 06/08/23 06/22/23 05/31/23 History
pantoprazole 40 mg tablet,delayed 40 mg PO DAILY@1700 06/08/23 06/22/23 06/17/23 History
release (Protonix) Gastrointestinal Issue
pomalidomide 2 mg capsule 2 mg PO DAILY 06/17/23 06/22/23 Unknown History
daratumumab 20 mg/mL intravenous 1,800 mg IV MONTHLY 06/22/23 06/22/23 Unknown History
solution
tramadol 50 mg tablet 50 mg PO BIDPRN PRN Pain 06/22/23 06/22/23 Unknown History
Active Medications
Generic Name Dose Route Start Last Admin
Trade Name Freq PRN Reason Stop Dose Admin
Acetaminophen 650 mg 06/22/23 03:20
Acetaminophen 325 Mg Tablet PO 07/20/23 03:19
Q4HPRN PRN
Mild Pain / Temp > 101
Acyclovir Sodium 400 mg 06/22/23 08:00 06/22/23 19:55
Acyclovir Sodium 200 Mg Capsule PO 07/02/23 07:59 400 mg
BID CHIRAG Administration
Albuterol Sulfate 2.5 mg 06/22/23 03:20 06/22/23 15:42
Albuterol Nebs 2.5 Mg/3 Ml Ampul INH 07/20/23 03:19 2.5 mg
R Q4HPRN PRN Administration
shortness of breath
Protocol
Atorvastatin Calcium 20 mg 06/22/23 22:00
Atorvastatin (Lipitor) 20 Mg Tablet PO 07/20/23 21:59
HS CHIRAG
Budesonide 0.5 mg 06/22/23 08:00 06/22/23 21:00
Budesonide (Pulmicort Respules) 0.5 Mg/2 Ml INH 07/20/23 07:59 0.5 mg
R BID CHIRAG Administration
Protocol
Carvedilol 3.125 mg 06/22/23 08:00 06/22/23 19:55
Carvedilol 3.125 Mg Tablet PO 07/20/23 07:59 3.125 mg
BID CHIRAG Administration
Dorzolamide/Timolol 1 drop 06/22/23 08:00 06/22/23 19:55
Dorzolamide/Timolol (Ophth Soln.) 10 Ml Bottle BOTH EYES 07/20/23 07:59 1 drop
BID CHIRAG Administration
Finasteride 5 mg 06/22/23 22:00
Finasteride 5 Mg Tablet PO 07/20/23 21:59
HS CHIRAG
Furosemide 20 mg 06/22/23 08:00 06/22/23 08:05
Furosemide 20 Mg (10 Mg/Ml) 2 Ml Vial IV 07/20/23 07:59 20 mg
DAILY CHIRAG Administration
Gabapentin 600 mg 06/22/23 22:00
Gabapentin 300 Mg Capsule PO 07/20/23 21:59
HS CHIRAG
Lorazepam 0.5 mg 06/22/23 03:20
Lorazepam 0.5 Mg Tablet PO 07/20/23 03:19
HS PRN
Insomnia, Anxiety
Pantoprazole Sodium 40 mg 06/22/23 17:00 06/22/23 16:20
Pantoprazole 40 Mg Delayed Release Tablet PO 07/20/23 16:59 40 mg
DAILY@1700 CHIRAG Administration
Potassium Chloride 20 meq 06/22/23 08:00 06/22/23 08:05
Potassium Chloride 20 Meq Extended Release Tablet PO 03/25/24 07:59 20 meq
BID CHIRAG Administration
Sodium Chloride 0 flush 06/22/23 04:00
Sodium Chloride 0.9% (Flush) Syringe IV 07/20/23 03:59
PER PROTOCOL CHIRAG
Tamsulosin HCl 0.8 mg 06/22/23 22:00
Tamsulosin 0.4 Mg Capsule PO 07/20/23 21:59
HS CHIRAG
Review of Systems
-
History Source: Patient
All Other Systems: Reviewed and Negative
Physical Exam
-
Awake and interactive
Labs
Lab Results
WBC 6.3 10^3/uL (4.8-10.8) 06/22/23 08:36
RBC 1.84 10^6/uL (4.70-6.10) L 06/22/23 08:36
Hgb 6.7 g/dL (13.0-18.0) L* 06/22/23 08:36
Hct 18.9 % (39.0-52.0) L* 06/22/23 08:36
MCV 102.7 fL (80.0-94.0) H 06/22/23 08:36
MCH 36.4 pg (27.0-31.0) H 06/22/23 08:36
MCHC 35.4 g/dL (33.0-37.0) 06/22/23 08:36
RDW 22.9 % (11.5-14.5) H 06/22/23 08:36
Plt Count 27 10^3/uL (130-400) L* D 06/22/23 08:36
MPV 10.6 fL (7.4-10.4) H 06/22/23 08:36
Abs Immat Gran (auto) 0.1 10^3/uL (0-0.05) H 06/22/23 08:36
Absolute Neuts (auto) 2.7 10^3/uL (1.4-6.5) 06/22/23 08:36
Absolute Lymphs (auto) 1.7 10^3/uL (1.2-3.4) 06/22/23 08:36
Absolute Monos (auto) 0.4 10^3/uL (0.1-0.6) 06/22/23 08:36
Absolute Eos (auto) 1.4 10^3/uL (0-0.7) H 06/22/23 08:36
Absolute Basos (auto) 0.0 10^3/uL (0-0.2) 06/22/23 08:36
Immature Gran % 1.3 % (0-0.5) H 06/22/23 08:36
Neutrophils % 43.1 % (42.2-75.2) 06/22/23 08:36
Lymphocytes % 27.5 % (20.5-51.1) 06/22/23 08:36
Monocytes % 6.6 % (1.7-9.3) 06/22/23 08:36
Eosinophils % 21.5 % (0-6) H 06/22/23 08:36
Basophils % 0.0 % (0-2) 06/22/23 08:36
Creatinine 1.5 mg/dL (0.7-1.3) H 06/22/23 08:36
Vital Signs
Vital Signs
Temp Pulse Resp BP Pulse Ox
98.5 F 83 23 128/64 96
06/22/23 21:14 06/22/23 21:14 06/22/23 21:14 06/22/23 21:14 06/22/23 21:06
[2023-06-22] MEDS: NEURONTIN 600 MG PO (22:01)
[2023-06-22] MEDS: PROSCAR 5 MG PO (22:01)
[2023-06-22] MEDS: LIPITOR 20 MG PO (22:01)
[2023-06-22] MEDS: FLOMAX 0.800000000000000044 MG PO (22:01)
[2023-06-22 22:41] LABS: Blood Urea Nitrogen 47 mg/dl (9-20); Calcium 7.4 mg/dl (8.4-10.2); Carbon Dioxide 18 mmol/L (22-30); Chloride 110 mmol/L (98-107); Estimated Creatinine Clearance 32 ml/min; Glucose 138 mg/dl (70-99); Sodium 135 mmol/L (135-145); eGFR 45.34
[2023-06-23] VITALS (26 sets, daily range): BP systolic 86–121; BP diastolic 45–84; BMI 26.0
[2023-06-23 04:59] LABS: Hematocrit 24.4 % (39.0-52.0); Mean Corp Hgb Conc. 35.7 g/dL (33.0-37.0); Mean Corpuscular Hgb 33.1 pg (27.0-31.0); Mean Corpuscular Volume 92.8 fL (80.0-94.0); Red Blood Cell Count 2.63 10^6/uL (4.70-6.10); Red Cell Dist. Width 20.9 % (11.5-14.5); White Blood Cell Count 4.2 10^3/uL (4.8-10.8)
[2023-06-23 05:05] LABS: Hemoglobin 8.7 g/dL (13.0-18.0)
[2023-06-23 05:07] LABS: Platelet Count 3 10^3/uL (130-400)
[2023-06-23 05:36] LABS: Blood Urea Nitrogen 48 mg/dl (9-20); Calcium 7.1 mg/dl (8.4-10.2); Carbon Dioxide 21 mmol/L (22-30); Chloride 112 mmol/L (98-107); Estimated Creatinine Clearance 35 ml/min; Glucose 135 mg/dl (70-99); LDH 173 U/L (120-246); Magnesium 1.8 mg/dl (1.6-2.3); Potassium 4.3 mmol/L (3.5-5.1); Sodium 137 mmol/L (135-145); eGFR 49.25
[2023-06-23] MEDS: PULMICORT 0.5 MG INH ×2 (07:41→20:17)
[2023-06-23] MEDS: VENTOLIN NEBULES 2.5 MG INH (07:43)
--- NOTE | 2023-06-23 08:24 | W.PN.HOSP.TC ---
Addendum entered and electronically signed by Alvaro Tee MD 06/24/23 08:53:
Hypokalemia
Original Note:
Today's Communication/Plan
-
Continue IV Lasix. Platelet transfusions today.
Assessment / Plan
Assessment / Plan
Physical exam:
General: Well Developed, Well Nourished and No Apparent Distress
HEENT: Normocephalic, Atraumatic and Moist Mucous Membranes
Respiratory: Clear to Auscultation; Negative Wheezes, Rales or Rhonchi
Cardiac: Regular Rhythm and S1/S2
GI: Soft, Nontender and Nondistended
Musculoskeletal: No Clubbing, No Cyanosis and No Edema
Neuro: Awake, Alert and Oriented
Psych: Calm
A/P:
Pulmonary Edema / Bilateral Pleural Effusions
Suspected HFpEF
Acute Hypoxemic Respiratory Insufficiency secondary to the above
�- Patient with significant weight gain since last admission, pulm edema / effusions on CXR and mild edema on exam.
�- Is on home Lasix only PRN.
�- IV Lasix now and daily.
�- Follow I/Os, daily weights, etc.
�- Will ask Cardiology to see for further evaluation and treatment. Cardiology evaluated patient today and recommends continue IV diuresis (dry weight around 155 pounds)
�- Patient may benefit from standing diuretic dosing moving forward.
-Updated daughter today (DYLAN works here in our hospital)
Multiple Myeloma
Plasma Cell Leukemia
Pancytopenias
-Plan for bone marrow biopsy
-Plan for platelet transfusion again today on 06/23
-Appreciate oncology consultation
�- Patient with decreases in all cell lines.
�- Transfusions of PRBCs and platelets ordered in the ED - but will take some time to obtain appropriate blood products given antibodies.
�- Hold further Pomalyst.
�- Heme / Onc evaluation for additional recommendations appreciated.
�- Continue prophylactic valacyclovir / immunosuppression precautions.
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
�- SCr = 1.6 compared to baseline / discharge value of 1.1. Today creatinine 1.4
�- SCr was also 1.6 at the time of prior admission.
�- Diuresis was recommended, but appears that patient received only a single dose of IV Lasix and several units of blood products.
�- ? positive or negative fluid balance during that admission.
�- Follow for changes with current attempts at diuresis.
COPD without Acute Exacerbation on home oxygen. Acute on chronic hypoxic respiratory failure.
-He typically uses 2 L of oxygen but he increased to 5 L prior to admission. He is currently on 4 L. Titrate down as able
�- No wheezing / increased cough / etc.
�- Continue inhaled corticosteroid and albuterol PRN.
�- Follow for any changes.
Benign Hypertension
�-Continue low-dose carvedilol to allow for diuresis.
�- Adjust regimen as needed.
BPH
�- Stable.� Continue tamsulosin.
�- DO NOT straight cath given risk of bleeding from severe thrombocytopenia.
DVT Prophylaxis:� SCDs
Code Status:� DNR
Total time spent on today's encounter was 52 minutes which included time spent in counseling the patient/family regarding diagnosis and treatment plan as listed above, goals of care, and symptom management. Case was discussed with nursing staff,
specialists, and care coordinators/case management. All labs and imaging personally reviewed by me. Remainder the time spent in detailed review of previous records, lab data, imaging, and other medical provider documentation.
Anticipated Discharge: > 48 hours
Subjective/Interval History
-
Date of Service: June 23, 2023
Patient with generalized weakness. He still short of breath. He is back on 4 L of oxygen. Denies chest pain, denies melena or hematemesis or bright blood per rectum or epistaxis. Afebrile.
Objective Data
-
Labs:
Laboratory Results
06/22/23 06/23/23
22:09 04:46
WBC 4.2 L
Hgb 8.7 L D
Hct 24.4 L
Plt Count 3 L* D
Sodium 135 137
Potassium 4.0 4.3
Chloride 110 H 112 H
Carbon Dioxide 18 L 21 L
BUN 47 H 48 H
Creatinine 1.5 H 1.4 H
Glucose 138 H 135 H
Calcium 7.4 L 7.1 L
Vital Signs:
Vital Signs
Temp Pulse Resp BP Pulse Ox
97.5 F 74 22 103/54 94
06/23/23 07:43 06/23/23 07:46 06/23/23 07:46 06/23/23 04:00 06/23/23 07:46
I&O
06/22/23 06/23/23 06/24/23
06:59 06:59 06:59
Intake Total 636 / 636 1497 / 1497
Output Total 150 / 150 1625 / 1625
Balance 486 / 486 -128 / -128
Review of Systems
-
All other systems: Reviewed and negative
[2023-06-23] MEDS: COSOPT EYE DROPS 1 DROP BOTH EYES ×2 (08:36→20:04)
[2023-06-23] MEDS: COREG 3.125 MG PO ×2 (08:36→20:04)
[2023-06-23] MEDS: KCL 20 MEQ PO ×2 (08:36→20:04)
[2023-06-23] MEDS: ZOVIRAX 400 MG PO ×2 (08:37→20:04)
[2023-06-23] MEDS: LASIX 20 MG IV (08:37)
--- NOTE | 2023-06-23 08:57 | W.PN.CD ---
Today's Communication / Plan
-
continue with IV lasix , particularly since patient will be receiving platelets
wean O2 as tolerted - he is on 4 liters and is on 2-3 at home
ultimatety will need standing oral diuretic with increased lasix on infusion days or with blood products.
Impression / Plan
-
HFpEF (EF 60-65%), acute on chronic
-Diuresis with furosemide 20mg IV daily
-Will require standing diuretic with infusions
-Recent echo stable
-Trend daily weight, I/Os, and BMP
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
-Recently started on recently started on Pomalyst
-Heme/Onc consulted
HTN, beta georgiana decreased to allow for diuresis
Pancytopenia, chronic, platelet count ZERO yesterday, labs pending
CKD, Stage III, follow with diuresis
Mild tricuspid regurgitation
COPD, follows with Dr. Constantion
Physical Exam
Vital Signs/Labs
Vital Signs
Temp Pulse Resp BP Pulse Ox
97.5 F 80 22 108/62 94
06/23/23 07:43 06/23/23 08:37 06/23/23 07:46 06/23/23 08:37 06/23/23 07:46
06/22/23 06/23/23 06/24/23
06:59 06:59 06:59
Actual Weight 72.6 kg
06/23/23 04:46
06/23/23 04:46
Magnesium 1.8 mg/dl (1.6-2.3) 06/23/23 04:46
06/21/23
23:26
Xoa-W-Icsbjehndfd Pept 702
LAB Results
06/21/23
23:26
Troponin I < 0.012
Physical Exam
Constitutional: No acute distress
Cardiovascular: Rhythm & rate is regular
Respiratory: Wheeze Absent, Rhonchi Absent and Other (decreased at bases)
GI: Soft
Neuro/Psych: Alert and Oriented
Data Reviewed
-
Date of Service: June 23, 2023
Medical Decision Making: Reviewed Test Results
X-Ray/CT/US/MRI/NUC/PET: Report Reviewed by me and Other (images reviewed )
Medical Tests (PFT, Pathology etc): Report Reviewed by me
Labs: Labs Reviewed by me
[2023-06-23 10:15] LABS: Absolute Neutrophils -Man Diff 2.3 10^3/uL (1.4-6.5); Band Neutrophils 1 % (0-3); Lymphocytes 24 % (20-51); Monocytes 6 % (2-9); Segmented Neutrophils 54 % (42-75)
[2023-06-23 10:16] LABS: Atypical Lymphocytes 5 %; Eosinophils 8 % (0-6); Metamyelocytes 2 % (-); Platelets Checked Yes
[2023-06-23 10:18] LABS: Normal RBC Morphology No; Nucleated Red Blood Cells 4 (-)
[2023-06-23 10:19] LABS: Anisocytosis 1+; Macrocytosis 1+; Poikilocytosis 1+; Polychromasia Slight
[2023-06-23 10:20] LABS: Ovalocytes 1+; Total Cells Counted 100
--- NOTE | 2023-06-23 11:41 | W.PN.ONC ---
Today's Communication / Plan
-
for BM biopsy (hopefully today or tomorrow)
will start Dex 40mg/d x4 days after BM sample obtained
Transfusion support
Impression
Impression
Multiple myeloma/plasma cell leukemia, recently with progressive disease
Volume overload from transfusions
Plan
Plan
Pt with more than 18-month history of multiple myeloma, plasma cell leukemia at diagnosis. This transfusion requirement is new for him.
Suggest bone marrow biopsy, exclude a separate process such as myeloid disorder, burned out marrow, other. It can be otherwise difficult to tell whether counts are low due to treatment or underlying disease.
Patient and family agree to proceed w/ BM bx. Inpt marrow has been approved by Dr. Gonzalez.
Suggest pulsed steroids, Dex 40 mg daily x 4, to begin once marrow biopsy has been obtained (no need to wait for results)
Transfuse PRN Hgb< 7, Plt<15K.
Pt known to Dr. Ayon at [place] as well as Dr. Gardiner.
will follow with you.
Subjective/Objective
Subjective/Objective
no specific complaints
family and patient agreeable to BM biopsy
Vital Signs:
Vital Signs
Temp Pulse Resp BP Pulse Ox
97.5 F 88 23 108/74 98
06/23/23 07:43 06/23/23 10:00 06/23/23 10:00 06/23/23 10:00 06/23/23 11:03
Lab Results:
Laboratory Data
WBC 4.2 10^3/uL (4.8-10.8) L 06/23/23 04:46
Hgb 8.7 g/dL (13.0-18.0) L D 06/23/23 04:46
Plt Count 3 10^3/uL (130-400) L* D 06/23/23 04:46
eGFR 49.25 06/23/23 04:46
Orders
Orders
Orders From Last 24 Hours
06/23/23 11:38
Consult Interventional Radiology [IRAD CONSULT] Routine
--- NOTE | 2023-06-23 13:31 | CM ---
CM following re: discharge planning.
Discussed in Rounds, reviewed pt' chart, met with pt and spoke to pt's daughter.
Per Rounds meeting, for BM biopsy today or tomorrow, transfusion support, currently on 4L NC, 2L NC at baseline. Oncology, Cardiology following.
Pt lives with spouse in a ranch style house, has supportive family. Independent [employer], drives, has home Oxygen and known to [facility].
PT and OT evaluations noted- home PT/OT recommended. Pt is known to [facility]. A referral to [facility] made.
D/C plan: home with [facility] and family support. Family to transport at discharge.
CM will follow with discharge plan updates as hospitalization progresses
--- NOTE | 2023-06-23 14:43 | PN.CDI ---
CDI
- -
CDI:
Physician Documentation Request
Admit Date: 06/22/23 02:11
Dear Doctor Nay,
Please review the following and provide your response in the progress notes.
Clinical Indicators:
Laboratory Tests
06/21/23 06/22/23 06/22/23
23: 08:36 22:09
Potassium 3.2 L 4.8 D 4.0
06/23/23
04:46
Potassium 4.3
Medications
Potassium Chloride (Potassium Chloride 20 Meq Extended Release Tablet) 20 meq PO BID CHIRAG
Stop: 07/20/23 07:59
Last Admin: 06/23/23 08:36 Dose: 20 meq
Potassium Chloride (Potassium Chloride 20 Meq Powder Packet) 40 meq PO NOW STA
Stop: 06/22/23 00:23
Last Admin: 06/22/23 00:29 Dose: 40 meq
Based on the above, please clarify in the progress notes, the appropriate diagnosis, if significant, that supports the above abnormalities and additional evaluation, monitoring and/or treatment rendered:
Hypokalemia
Abnormal lab value, clinically insignificant
Other
Use of terms such as suspected, likely, concern for, or probable (associated with a specific diagnosis that is being evaluated, monitored, or treated as if it exists) are acceptable and can be coded in the inpatient setting, when documented at the
time of discharge.
Thank you,
Rosemarie Hutton RN BSN CCDS
CDI Specialist
please contact via tiger text
Please use your independent medical judgment in providing your response.
--- NOTE | 2023-06-23 15:43 | PTCARENOTE ---
Patient received in AM with assessment as noted. Continues alert and oriented with a cooperative affect. OOB to chair from [id number] and transfers with 1 person minimal assist. NSR on monitor. Afebrile. B/P's slightly hypotensive but stable. Lungs
CTA. Fio2 weaned from 4 to 2lnc with Sao2 maintained >94%. Appetite fair. Had 2 loose brown stools on the bed forbes today. Voiding ad alfred. A unit single donor platelets transfused as per orders for an AM platelet result of 3000. No evidence of
bleeding noted. AM Hgb 8.7. Family into visit and updated to patient condition. Patient currently ion bed with call elam and telephone in reach. at bedside. Patient admitted as an IMU hold awaiting bed availability in IMU.
[2023-06-23] MEDS: PROTONIX 40 MG PO (16:45)
--- NOTE | 2023-06-23 20:00 | PTCARENOTE ---
Resumed care of pt sitting up in bed AAOx3. Pt anxious and tachypneic. Pt assisted on and off bed forbes. Pt having soft/ loose bm. CHG bath provided. Alysa care complete. HR in the 80's in NSR on the monitor. POX 96% on 2 LO2 NC. TERESA/Tachypneic. Lungs
dec with exertional ex wheezes. Hyper bowel. Pt using urinal independently. Palpable peripheral pulses present. Trace LE edema noted. Left forearm int capped. Left wrist int capped. Emotional support provided. Family at bedside. Will continue to
monitor.
[2023-06-23] MEDS: FLOMAX 0.800000000000000044 MG PO (21:46)
[2023-06-23] MEDS: NEURONTIN 600 MG PO (21:46)
[2023-06-23] MEDS: ATIVAN 0.5 MG PO (21:46)
[2023-06-23] MEDS: PROSCAR 5 MG PO (21:47)
[2023-06-23] MEDS: LIPITOR 20 MG PO (21:47)
[2023-06-24] VITALS (29 sets, daily range): BP systolic 86–127; BP diastolic 48–76; BMI 25.8
[2023-06-24 03:40] LABS: Hematocrit 25.9 % (39.0-52.0); Hemoglobin 9.1 g/dL (13.0-18.0); Mean Corp Hgb Conc. 35.1 g/dL (33.0-37.0); Mean Corpuscular Hgb 33.2 pg (27.0-31.0); Mean Corpuscular Volume 94.5 fL (80.0-94.0); Nucleated Red Blood Cells % 0 % (-); Red Blood Cell Count 2.74 10^6/uL (4.70-6.10); Red Cell Dist. Width 21.1 % (11.5-14.5); White Blood Cell Count 4.8 10^3/uL (4.8-10.8)
[2023-06-24 03:46] LABS: Platelet Count 2 10^3/uL (130-400)
[2023-06-24 04:07] LABS: Absolute Neutrophils -Man Diff 2.1 10^3/uL (1.4-6.5); Band Neutrophils 5 % (0-3); Eosinophils 21 % (0-6); Lymphocytes 32 % (20-51); Monocytes 3 % (2-9); Segmented Neutrophils 39 % (42-75)
[2023-06-24 04:08] LABS: Normal RBC Morphology Yes; Platelets Checked Yes; Total Cells Counted 100
[2023-06-24 04:09] LABS: Blood Urea Nitrogen 50 mg/dl (9-20); Carbon Dioxide 25 mmol/L (22-30); Chloride 109 mmol/L (98-107); Estimated Creatinine Clearance 32 ml/min; Glucose 112 mg/dl (70-99); Magnesium 1.8 mg/dl (1.6-2.3); Potassium 4.4 mmol/L (3.5-5.1); Sodium 138 mmol/L (135-145); eGFR 45.34
--- NOTE | 2023-06-24 06:26 | PTCARENOTE ---
Pt slept well overnight. No issues to report. AM labs reviewed with Steven HOPKINS. Vital signs stable. Will continue to monitor
--- NOTE | 2023-06-24 07:02 | W.PN.ONC2 ---
Today's Communication / Plan
-
BMBX today hopefully. Start Dexadron as stated after procedure done.
Seems to be becoming refractory to PLT transfusions and alloimmunized as no further increment to PLT transfusions after 06/22. No current bleeding. Will try another PLT and HLA type for possible HLA matched PLT if needed.
Impression
Impression
Multiple myeloma/plasma cell leukemia, recently with progressive disease
Volume overload from transfusions
Plan
Plan
Pt with more than 18-month history of multiple myeloma, plasma cell leukemia at diagnosis. This transfusion requirement is new for him.
Suggest bone marrow biopsy, exclude a separate process such as myeloid disorder, burned out marrow, other. It can be otherwise difficult to tell whether counts are low due to treatment or underlying disease.
Patient and family agree to proceed w/ BM bx. Inpt marrow has been approved by Dr. Gonzalez.
Suggest pulsed steroids, Dex 40 mg daily x 4, to begin once marrow biopsy has been obtained (no need to wait for results)
Transfuse PRN Hgb< 7, Plt<10K.
Seems to be becoming refractory to PLT transfusions and alloimmunized as no further increment to PLT transfusions after 06/22. No current bleeding. Will try another PLT and HLA type for possible HLA matched PLT if needed.
Pt known to Dr. Ayon at [place] as well as Dr. Gardiner.
will follow with you.
Subjective/Objective
Chief Complaint
ACS Heme Onc
Subjective
No bleeding. Anxious regarding BMBx but seems agreeable. Doesn't remember having one previously (had it 09/10/2021 at )
Vital Signs:
Vital Signs
Temp Pulse Resp BP Pulse Ox
98.0 F 77 19 97/54 92
06/24/23 04:14 06/24/23 05:00 06/24/23 05:00 06/24/23 05:00 06/24/23 05:00
Lab Results:
Laboratory Data
WBC 4.8 10^3/uL (4.8-10.8) 06/24/23 03:19
Hgb 9.1 g/dL (13.0-18.0) L 06/24/23 03:19
Plt Count 2 10^3/uL (130-400) L* D 06/24/23 03:19
eGFR 45.34 06/24/23 03:19
Physical Exam
HEENT: No Jaundice
Cardiology: S1 and S2
Pulmonary: Clear
[2023-06-24] MEDS: PULMICORT 0.5 MG INH ×2 (07:59→20:05)
--- NOTE | 2023-06-24 08:09 | W.PN.HOSP.TC ---
Today's Communication/Plan
-
Plan for platelet transfusions. Obtain chest x-ray.
Assessment / Plan
Assessment / Plan
Physical exam:
General: Acutely ill
HEENT: Normocephalic, Atraumatic and Moist Mucous Membranes
Respiratory: Clear to Auscultation; Negative Wheezes, Rales or Rhonchi
Cardiac: Regular Rhythm and S1/S2
GI: Soft, Nontender and Nondistended
Musculoskeletal: No Clubbing, No Cyanosis and No Edema
Neuro: Awake, Alert and Oriented
Psych: Calm
A/P:
Pulmonary Edema / Bilateral Pleural Effusions
Acute HFpEF (EF 6065%)
Acute Hypoxemic Respiratory Insufficiency secondary to the above
-Transition to oral diuretics today by cardiology, Lasix 40 mg daily (weight around 160 pounds which is his dry weight)
-Will use as needed Lasix for transfusions
-Will repeat chest x-ray today
Multiple Myeloma
Plasma Cell Leukemia
Pancytopenias
-Plan for bone marrow biopsy
-Plan for platelet transfusion again today on 06/24--> there has been some refractoriness to transfusions so hematology ordering HLA typed for possible HLA matched platelet if needed.
-Appreciate hematology oncology consultation
-Plan to start steroids after biopsy
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
�- SCr = 1.6 compared to baseline / discharge value of 1.1. Today creatinine 1.5
�- SCr was also 1.6 at the time of prior admission.
�-Avoid nephrotoxic
-Continue monitor renal function closely
COPD without Acute Exacerbation on home oxygen. Acute on chronic hypoxic respiratory failure.
-He typically uses 2 L of oxygen but he increased to 5 L prior to admission. He is currently on 3 to 4 L. Titrate down as able
�- No wheezing / increased cough but at increased risk of COPD exacerbation.
�- Continue inhaled corticosteroid and albuterol PRN.
�- Follow for any changes.
Benign Hypertension
�-Continue low-dose carvedilol to allow for diuresis--> Coreg down from 6.25 to 3.125 mg twice a day
�- Adjust regimen as needed.
BPH
�- Stable.� Continue tamsulosin.
�- DO NOT straight cath if possible given risk of bleeding from severe thrombocytopenia.
DVT Prophylaxis:� SCDs
Code Status:� DNR
Total time spent on today's encounter was 52 minutes which included time spent in counseling the patient/family regarding diagnosis and treatment plan as listed above, goals of care, and symptom management. Case was discussed with nursing staff,
specialists, and care coordinators/case management. All labs and imaging personally reviewed by me. Remainder the time spent in detailed review of previous records, lab data, imaging, and other medical provider documentation.
Anticipated Discharge: > 48 hours
Subjective/Interval History
-
Date of Service: June 24, 2023
Patient feels tired, no active bleeding. No chest pain. He feels short of breath overall.
Objective Data
-
Labs:
Laboratory Results
06/24/23
03:19
WBC 4.8
Hgb 9.1 L
Hct 25.9 L
Plt Count 2 L* D
Sodium 138
Potassium 4.4
Chloride 109 H
Carbon Dioxide 25
BUN 50 H
Creatinine 1.5 H
Glucose 112 H
Calcium 7.0 L
Vital Signs:
Vital Signs
Temp Pulse Resp BP Pulse Ox
97.4 F 83 17 97/54 92
06/24/23 07:27 06/24/23 08:02 06/24/23 08:02 06/24/23 05:00 06/24/23 08:02
I&O
06/23/23 06/24/23 06/25/23
06:59 06:59 06:59
Intake Total 1497 / 1497 730 / 730
Output Total 1625 / 1625 1625 / 1625 300 / 300
Balance -128 / -128 -895 / -895 -300 / -300
Review of Systems
-
All other systems: Reviewed and negative
--- NOTE | 2023-06-24 09:18 | PTCARENOTE ---
HLA x3 pink tubes send results pending
--- NOTE | 2023-06-24 09:23 | W.PN.CD ---
Today's Communication / Plan
-
transition to oral diuretics lasix 40mg daily
Impression / Plan
-
HFpEF (EF 60-65%), acute on chronic dry weight is ~160 lbs which he is at
-will transition to oral lasix 40 mg daily
-Will require standing diuretic with infusions
-Recent echo stable
-Trend daily weight, I/Os, and BMP
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
-Recently started on recently started on Pomalyst
-Heme/Onc consulted
HTN, beta georgiana decreased to allow for diuresis
Pancytopenia, chronic, platelet count ZERO yesterday, labs pending
CKD, Stage III, follow with diuresis
Mild tricuspid regurgitation
COPD, follows with Dr. Constantino
Physical Exam
Vital Signs/Labs
Vital Signs
Temp Pulse Resp BP Pulse Ox
97.4 F 83 17 97/54 92
06/24/23 07:27 06/24/23 08:02 06/24/23 08:02 06/24/23 05:00 06/24/23 08:02
06/23/23 06/24/23 06/25/23
06:59 06:59 06:59
Actual Weight 160 lb 11.472 oz 159 lb 9.835 oz
06/24/23 03:19
06/24/23 03:19
Magnesium 1.8 mg/dl (1.6-2.3) 06/24/23 03:19
06/21/23
23:26
Pbp-J-Jwryasjaymf Pept 702
LAB Results
06/21/23
23:26
Troponin I < 0.012
Physical Exam
Constitutional: No acute distress
Cardiovascular: Rhythm & rate is regular and Pedal edema is absent
Respiratory: Respiratory effort normal and Lungs clear to auscul.
GI: Soft
Neuro/Psych: Alert and Oriented
Data Reviewed
-
Date of Service: June 24, 2023
Medical Decision Making: Reviewed Test Results
EKG: Tracing Personally Visualized and interpreted
Echo: Report Reviewed by me
Labs: Labs Reviewed by me
[2023-06-24] MEDS: KCL 20 MEQ PO ×2 (09:29→20:19)
[2023-06-24] MEDS: COREG 3.125 MG PO ×2 (09:29→20:18)
[2023-06-24] MEDS: ZOVIRAX 400 MG PO ×2 (09:29→20:19)
[2023-06-24] MEDS: COSOPT EYE DROPS 1 DROP BOTH EYES ×2 (09:30→20:19)
[2023-06-24] MEDS: LASIX 20 MG IV (09:30)
[2023-06-24] MEDS: FIRST-MOUTHWASH BLM SUSPENSION 5 ML PO (17:37)
[2023-06-24] MEDS: PROTONIX 40 MG PO (17:40)
[2023-06-24 19:17] LABS: Haptoglobin 128 mg/dL (30-200)
--- NOTE | 2023-06-24 19:47 | PTCARENOTE ---
patient in bed. 2L of oxygen. Refused dinner. pt continent of urine and bladder. Frequent loose small bowel movement
[2023-06-24] MEDS: VENTOLIN NEBULES 2.5 MG INH (20:04)
[2023-06-24] MEDS: PROSCAR 5 MG PO (22:16)
[2023-06-24] MEDS: LIPITOR 20 MG PO (22:16)
[2023-06-24] MEDS: FLOMAX 0.800000000000000044 MG PO (22:16)
[2023-06-24] MEDS: NEURONTIN 600 MG PO (22:16)
[2023-06-24] MEDS: ATIVAN 0.5 MG PO (22:18)
[2023-06-25] VITALS (36 sets, daily range): BP systolic 88–120; BP diastolic 50–69; BMI 25.8
[2023-06-25 04:15] LABS: % Basophils 0.2 % (0-2); % Eosinophils 19.9 % (0-6); % Lymphocytes 31.9 % (20.5-51.1); % Monocytes 7.9 % (1.7-9.3); % Neutrophils 39.1 % (42.2-75.2); Absolute Eosinophils 0.8 10^3/uL (0-0.7); Absolute Lymphocytes 1.3 10^3/uL (1.2-3.4); Absolute Monocytes 0.3 10^3/uL (0.1-0.6); Absolute Neutrophils 1.6 10^3/uL (1.4-6.5); Hematocrit 22.8 % (39.0-52.0); Mean Corp Hgb Conc. 35.1 g/dL (33.0-37.0); Mean Corpuscular Hgb 33.1 pg (27.0-31.0); Mean Corpuscular Volume 94.2 fL (80.0-94.0); Mean Platelet Volume 12.1 fL (7.4-10.4); Nucleated Red Blood Cells % 0 % (-); Red Blood Cell Count 2.42 10^6/uL (4.70-6.10); Red Cell Dist. Width 20.7 % (11.5-14.5); White Blood Cell Count 4.1 10^3/uL (4.8-10.8)
[2023-06-25 04:24] LABS: Platelet Count 5 10^3/uL (130-400)
[2023-06-25 04:27] LABS: INR 1.31; PT 16.3 Sec (11.4-14.6)
[2023-06-25 04:46] LABS: Blood Urea Nitrogen 53 mg/dl (9-20); Calcium 6.8 mg/dl (8.4-10.2); Carbon Dioxide 23 mmol/L (22-30); Chloride 107 mmol/L (98-107); Estimated Creatinine Clearance 35 ml/min; Glucose 121 mg/dl (70-99); Potassium 4.6 mmol/L (3.5-5.1); Sodium 134 mmol/L (135-145); eGFR 49.25
--- NOTE | 2023-06-25 05:25 | PTCARENOTE ---
Pt resting overnight. AAOx3. SR on tele, BPs 90s-110s/50s-70s. Very dyspneic with little exertion. OOB to commode for BM with assistance. Using call elam appropriately.
[2023-06-25] MEDS: CALCIUM GLUCONATE 130 MG IV (06:11)
--- NOTE | 2023-06-25 07:50 | W.PN.HOSP.TC ---
Today's Communication/Plan
-
IV Lasix today. Plan for platelet transfusion. Bone marrow biopsy when able.
Assessment / Plan
Assessment / Plan
Physical exam:
General: Acutely ill
HEENT: Normocephalic, Atraumatic and Moist Mucous Membranes but oral plaques
Respiratory: Decreased breath sounds and bilateral crackles; Negative Wheezes or Rhonchi
Cardiac: Regular Rhythm and S1/S2
GI: Soft, Nontender and Nondistended
Musculoskeletal: No Clubbing, No Cyanosis and there is Edema
Neuro: Awake, Alert and Oriented
Psych: Calm
A/P:
Pulmonary Edema / Bilateral Pleural Effusions
Acute HFpEF (EF 6065%)
Acute Hypoxemic Respiratory Insufficiency secondary to the above
-Transition to oral diuretics on 06/24 by cardiology, Lasix 40 mg daily (weight around 160 pounds which is his dry weight)
-Will use as needed Lasix for transfusions
-Repeated chest x-ray on 06/24 mild to moderate bilateral pleural effusions slightly increased and compressive atelectasis. I personally reviewed the chest x-ray today and bilateral effusions more prominent--> ideally we could do thoracentesis
but with his thrombocytopenia we are limited. I will dose Lasix 40 m IV x 1 today.
-Updated Na, daughter today
Multiple Myeloma
Plasma Cell Leukemia
Pancytopenias
-Plan for bone marrow biopsy
-Plan for platelet transfusion again today on (Plt 5 today)
-On 06/24 there has been some refractoriness to transfusions so hematology ordering HLA typed for possible HLA matched platelet if needed.
-Appreciate hematology oncology consultation
-Plan to start steroids after biopsy
Oral mucositis likely chemotherapy related and candidiasis
-Continue Magic wash
-Add oral nystatin
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
�- SCr = 1.6 compared to baseline / discharge value of 1.1. Today creatinine 1.4
�- SCr was also 1.6 at the time of prior admission.
�-Avoid nephrotoxic
-Continue monitor renal function closely
COPD without Acute Exacerbation on home oxygen. Acute on chronic hypoxic respiratory failure.
-He typically uses 2 L of oxygen but he increased to 5 L prior to admission. He is currently on 3 to 4 L. Titrate down as able
�- No wheezing / increased cough but at increased risk of COPD exacerbation.
�- Continue inhaled corticosteroid and albuterol PRN.
�- Follow for any changes.
Benign Hypertension
�-Continue low-dose carvedilol to allow for diuresis--> Coreg down from 6.25 to 3.125 mg twice a day
�- Adjust regimen as needed.
BPH
�- Stable.� Continue tamsulosin.
�- DO NOT straight cath if possible given risk of bleeding from severe thrombocytopenia.
DVT Prophylaxis:� SCDs
Code Status:� DNR
Total time spent on today's encounter was 52 minutes which included time spent in counseling the patient/family regarding diagnosis and treatment plan as listed above, goals of care, and symptom management. Case was discussed with nursing staff,
specialists, and care coordinators/case management. All labs and imaging personally reviewed by me. Remainder the time spent in detailed review of previous records, lab data, imaging, and other medical provider documentation.
Anticipated Discharge: > 48 hours
Subjective/Interval History
-
Date of Service: June 25, 2023
Patient is more short of breath today. Denies active bleeding, no epistaxis, no melena, no hematemesis. No chest pain. Afebrile
Objective Data
-
Labs:
Laboratory Results
06/25/23
04:03
WBC 4.1 L
Hgb 8.0 L
Hct 22.8 L
Plt Count 5 L* D
PT 16.3 H
INR 1.31
Sodium 134 L
Potassium 4.6
Chloride 107
Carbon Dioxide 23
BUN 53 H
Creatinine 1.4 H
Glucose 121 H
Calcium 6.8 L*
Vital Signs:
Vital Signs
Temp Pulse Resp BP Pulse Ox
97.5 F 76 17 99/55 95
06/25/23 07:40 06/25/23 07:00 06/25/23 07:00 06/25/23 07:00 06/25/23 04:00
I&O
06/24/23 06/25/23 06/26/23
06:59 06:59 06:59
Intake Total 730 / 730 982 / 982
Output Total 1625 / 1625 1200 / 1200
Balance -895 / -895 -218 / -218
Review of Systems
-
All other systems: Reviewed and negative
--- NOTE | 2023-06-25 08:00 | PTCARENOTE ---
Assumed care of patient at 0645. Assessment completed and documented in shift assessment.
Patient is AAOX3, requiring 2L NC to maintain SpO2 > 90%. Dyspnea at rest and with exertion, low reserve for any activity. OOB to Chair for breakfast. Assisted with AM Care. Awaiting bone marrow biopsy later on today. Needs 1 Unit of Platelets,
awaiting product from [employer].
[2023-06-25] MEDS: PULMICORT 0.5 MG INH ×2 (08:01→20:17)
[2023-06-25] MEDS: KCL 20 MEQ PO ×2 (09:09→20:02)
[2023-06-25] MEDS: ZOVIRAX 400 MG PO ×2 (09:10→20:02)
[2023-06-25] MEDS: COREG 3.125 MG PO ×2 (09:10→20:02)
[2023-06-25] MEDS: LASIX 40 MG PO (09:10)
[2023-06-25] MEDS: COSOPT EYE DROPS 1 DROP BOTH EYES ×2 (09:10→20:02)
[2023-06-25] MEDS: FIRST-MOUTHWASH BLM SUSPENSION 5 ML PO (09:11)
--- NOTE | 2023-06-25 10:16 | W.PN.ONC ---
Today's Communication / Plan
-
Inpt marrow has been approved by Dr. Gonzalez. Pending
Suggest pulsed steroids, Dex 40 mg daily x 4, to begin once marrow biopsy has been obtained (no need to wait for results)
Transfuse PRN Hgb< 7, Plt<10K- HLA matched
Pt known to Dr. Ayon at [place] as well as Dr. Gardiner.
Will follow
Impression
Impression
Multiple myeloma/plasma cell leukemia, recently with progressive disease
Volume overload from transfusions
Plan
Plan
Subjective/Objective
Subjective/Objective
No active bleeding. Hemoglobin regressed to 8.0 g/dL. Patient with limited exertional capacity.
Vital Signs:
Vital Signs
Temp Pulse Resp BP Pulse Ox
97.5 F 88 18 103/56 94
06/25/23 07:40 06/25/23 09:10 06/25/23 08:03 06/25/23 09:10 06/25/23 08:03
Physical Exam
HEENT: No Jaundice
Cardiology: S1 and S2
Pulmonary: Clear
Lab Results:
Laboratory Data
WBC 4.1 10^3/uL (4.8-10.8) L 06/25/23 04:03
Hgb 8.0 g/dL (13.0-18.0) L 06/25/23 04:03
Plt Count 5 10^3/uL (130-400) L* D 06/25/23 04:03
PT 16.3 Sec (11.4-14.6) H 06/25/23 04:03
INR 1.31 06/25/23 04:03
eGFR 49.25 06/25/23 04:03
--- NOTE | 2023-06-25 11:52 | W.PN.CD ---
Today's Communication / Plan
-
lasix 40mg daily with extra 40mg on days of transfusion
We will sign off please call with questions/concerns
Impression / Plan
-
HFpEF (EF 60-65%), acute on chronic dry weight is ~160 lbs which he is at
-oral lasix 40 mg daily, he should get extra dose with infusions
-Recent echo stable
-Trend daily weight, I/Os, and BMP
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
-Recently started on recently started on Pomalyst
-Heme/Onc consulted
HTN, beta georgiana decreased to allow for diuresis
Pancytopenia, chronic, multiple CA
CKD, Stage III, follow with diuresis
Mild tricuspid regurgitation
COPD, follows with Dr. Constantino
Physical Exam
Vital Signs/Labs
Vital Signs
Temp Pulse Resp BP Pulse Ox
97.4 F 86 26 100/57 97
06/25/23 11:42 06/25/23 11:00 06/25/23 11:00 06/25/23 11:00 06/25/23 11:00
06/24/23 06/25/23 06/26/23
06:59 06:59 06:59
Actual Weight 159 lb 9.835 oz 159 lb 13.362 oz
06/25/23 04:03
06/25/23 04:03
PT 16.3 Sec (11.4-14.6) H 06/25/23 04:03
INR 1.31 06/25/23 04:03
Magnesium 1.8 mg/dl (1.6-2.3) 06/24/23 03:19
06/21/23
23:26
Wxc-D-Ehbbsjxmlat Pept 702
Physical Exam
Constitutional: Other (Tired and chronically ill appearing )
Cardiovascular: Rhythm & rate is regular
Respiratory: Respiratory effort normal and Lungs clear to auscul.
GI: Soft
Neuro/Psych: Alert and Oriented
Data Reviewed
-
Date of Service: June 25, 2023
EKG: Report Reviewed by me
Echo: Report Reviewed by me
Labs: Labs Reviewed by me
[2023-06-25] MEDS: MYCOSTATIN ORAL SUSPENSION 5 ML PO ×3 (13:06→22:22)
[2023-06-25] MEDS: LASIX 40 MG IV (13:06)
--- NOTE | 2023-06-25 15:55 | CM ---
CM following re: discharge planning.
Reviewed pt's chart, met with pt, pt's spouse and pt's son Bill at bedside. CM discussed pt's case with daughter Na. Pt's spouse went to tears. Emotional support offered and provided to pt's family.
Per Rounds, pt requires 2L NC of O2, bone marrow biopsy, continue supportive care. .
D/C plan; uncertain at this time and will depend on pt's progress.
CM will follow with discharge plan updates as hospitalization progresses
--- NOTE | 2023-06-25 16:00 | PTCARENOTE ---
Patient back from IR s/p bone marrow biopsy. Hemodynamically stable.
Will receive 1 Unit of Platelets per order.
[2023-06-25] MEDS: PROTONIX 40 MG PO (18:01)
[2023-06-25] MEDS: LIPITOR 20 MG PO (22:22)
[2023-06-25] MEDS: FLOMAX 0.800000000000000044 MG PO (22:22)
[2023-06-25] MEDS: ATIVAN 0.5 MG PO (22:23)
[2023-06-25] MEDS: NEURONTIN 600 MG PO (22:23)
[2023-06-25] MEDS: PROSCAR 5 MG PO (22:23)
--- NOTE | 2023-06-25 22:32 | PTCARENOTE ---
pt used nystatin mouth wash switch and swallow and immediately began coughing. sat patient up on the side of the bed. attempted to suction but he wouldn't allow that for very long swatting the nurses hands away. pt was coughing up thick white
secretions. o2 increased to 4L NC during episode.
[2023-06-26] VITALS (23 sets, daily range): BP systolic 84–120; BP diastolic 44–68; BMI 25.7
[2023-06-26 04:35] LABS: Ionized Calcium 1.05 mMOL/L (1.15-1.33)
[2023-06-26 04:38] LABS: % Lymphocytes 30.6 % (20.5-51.1); % Monocytes 11.5 % (1.7-9.3); % Neutrophils 37.9 % (42.2-75.2); Absolute Eosinophils 0.8 10^3/uL (0-0.7); Absolute Lymphocytes 1.2 10^3/uL (1.2-3.4); Absolute Monocytes 0.5 10^3/uL (0.1-0.6); Absolute Neutrophils 1.5 10^3/uL (1.4-6.5); Hematocrit 21.7 % (39.0-52.0); Hemoglobin 7.5 g/dL (13.0-18.0); Mean Corp Hgb Conc. 34.6 g/dL (33.0-37.0); Mean Corpuscular Volume 95.6 fL (80.0-94.0); Mean Platelet Volume 11.3 fL (7.4-10.4); Nucleated Red Blood Cells % 0 % (-); Red Blood Cell Count 2.27 10^6/uL (4.70-6.10)
[2023-06-26 04:45] LABS: Platelet Count 9 10^3/uL (130-400)
[2023-06-26 05:17] LABS: Blood Urea Nitrogen 56 mg/dl (9-20); Calcium 7.5 mg/dl (8.4-10.2); Carbon Dioxide 25 mmol/L (22-30); Chloride 106 mmol/L (98-107); Estimated Creatinine Clearance 29 ml/min; Glucose 140 mg/dl (70-99); Magnesium 1.8 mg/dl (1.6-2.3); Potassium 4.6 mmol/L (3.5-5.1); Sodium 136 mmol/L (135-145); eGFR 39.02
[2023-06-26] MEDS: CALCIUM CHLORIDE 10% SYRINGE 60 MG IV (06:09)
--- NOTE | 2023-06-26 08:18 | W.PN.HOSP.TC ---
Today's Communication/Plan
-
Await for primary biopsy. Probably steroids and transfusions.
Assessment / Plan
Assessment / Plan
Physical exam:
General: Acutely ill
HEENT: Normocephalic, Atraumatic and Moist Mucous Membranes but oral plaques
Respiratory: Decreased breath sounds and bilateral crackles; Negative Wheezes or Rhonchi
Cardiac: Regular Rhythm and S1/S2
GI: Soft, Nontender and Nondistended
Musculoskeletal: No Clubbing, No Cyanosis and there is Edema
Neuro: Awake, Alert and Oriented
Psych: Calm
A/P:
Pulmonary Edema / Bilateral Pleural Effusions
Acute HFpEF (EF 6065%)
Acute Hypoxemic Respiratory Insufficiency secondary to the above
-Transition to oral diuretics on 06/24 by cardiology, Lasix 40 mg daily (weight around 160 pounds which is his dry weight)
-Will use as needed Lasix for transfusions
-Repeated chest x-ray on 06/24 mild to moderate bilateral pleural effusions slightly increased and compressive atelectasis. I personally reviewed the chest x-ray today and bilateral effusions more prominent--> ideally we could do thoracentesis
but with his thrombocytopenia we are limited. I dosed Lasix 40 m IV x 1 on .
-Updated Na, daughter yesterday
Multiple Myeloma
Plasma Cell Leukemia
Pancytopenias
-S/P bone marrow biopsy on
-Might need platelet transfusion (Plt 9 today) and probably steroids but will await for oncology recommendation
-On 06/24 there has been some refractoriness to transfusions so hematology ordering HLA typed for possible HLA matched platelet if needed.
-Appreciate hematology oncology consultation
-Plan to start steroids after biopsy
-Hemoglobin 7.5 today
Oral mucositis likely chemotherapy related and candidiasis
-Continue Magic wash
-Add oral nystatin
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
�- SCr = 1.6 compared to baseline / discharge value of 1.1. Today creatinine 1.7
�- SCr was also 1.6 at the time of prior admission.
�-Avoid nephrotoxic
-Continue monitor renal function closely
Hypocalcemia
-Calcium given yesterday and today improved to 7.5, Not corrected with albumin-ionized calcium 1.05
COPD without Acute Exacerbation on home oxygen. Acute on chronic hypoxic respiratory failure.
-He typically uses 2 L of oxygen but he increased to 5 L prior to admission. He is currently on 3 to 4 L. Titrate down as able
�- No wheezing / increased cough but at increased risk of COPD exacerbation.
�- Continue inhaled corticosteroid and albuterol PRN.
�- Follow for any changes.
Benign Hypertension
�-Continue low-dose carvedilol to allow for diuresis--> Coreg down from 6.25 to 3.125 mg twice a day
�- Adjust regimen as needed.
BPH
�- Stable.� Continue tamsulosin.
�- DO NOT straight cath if possible given risk of bleeding from severe thrombocytopenia.
DVT Prophylaxis:� SCDs
Code Status:� DNR
Total time spent on today's encounter was 52 minutes which included time spent in counseling the patient/family regarding diagnosis and treatment plan as listed above, goals of care, and symptom management. Case was discussed with nursing staff,
specialists, and care coordinators/case management. All labs and imaging personally reviewed by me. Remainder the time spent in detailed review of previous records, lab data, imaging, and other medical provider documentation.
Anticipated Discharge: > 48 hours
Subjective/Interval History
-
Date of Service: June 26, 2023
Patient is short of breath today. No chest pain. No active bleeding. Afebrile
Objective Data
-
Labs:
Laboratory Results
06/26/23
04:22
WBC 4.0 L
Hgb 7.5 L
Hct 21.7 L
Plt Count 9 L* D
Sodium 136
Potassium 4.6
Chloride 106
Carbon Dioxide 25
BUN 56 H
Creatinine 1.7 H
Glucose 140 H
Calcium 7.5 L
Vital Signs:
Vital Signs
Temp Pulse Resp BP Pulse Ox
97.6 F 81 15 103/50 96
06/26/23 08:10 06/26/23 07:00 06/26/23 07:00 06/26/23 07:00 06/26/23 07:00
I&O
06/25/23 06/26/23 06/27/23
06:59 06:59 06:59
Intake Total 982 / 982 362 / 362
Output Total 1200 / 1200 800 / 800
Balance -218 / -218 -438 / -438
Review of Systems
-
All other systems: Reviewed and negative
[2023-06-26] MEDS: PULMICORT 0.5 MG INH ×2 (08:32→20:04)
--- NOTE | 2023-06-26 09:45 | W.HF.CON ---
Heart Failure
- LV Function
Left ventricular function study result: LV Ejection fraction >40% (ECHO 06/11/23)
Ejection Fraction Percentage: 60-65
- ARNI
Patient already on ARNI: No
Heart Failure ARNI Not Indicated: LV Ejection Fraction >/= 40%
- ACEI/ARB
Patient already on ACEI/ARB: No
Heart Failure ACEI/ARB Not Indicated: LV Ejection Fraction > 40%
- Beta Alcides
Patient already on Evidence Based Beta Alcides: Yes
- Mineralocorticord Receptor Antagonist
Patient already on MRA: No
Heart Failure MRA Not Indicated: LV Ejection Fraction > 40%
- SGLT-2 Inhibitor
Patient already on SGLT-2 Inhibitor: No
Heart Failure SGLT-2 Inhibitor Not Indicated: LV Ejection Fraction >40%
- NYHA CHF Classification
NYHA CHF Classification Level: Class III - Symptoms w/ min exertion, interferes w/ nml daily activity
- ACC/AHA Stage
ACC/AHA Stage: Stage C: Symptomatic Heart Failure
[2023-06-26] MEDS: ZOVIRAX 400 MG PO ×2 (09:55→19:48)
[2023-06-26] MEDS: LASIX 40 MG PO (09:55)
[2023-06-26] MEDS: COSOPT EYE DROPS 1 DROP BOTH EYES ×2 (09:56→19:48)
[2023-06-26] MEDS: COREG 3.125 MG PO ×2 (09:56→19:48)
[2023-06-26] MEDS: MYCOSTATIN ORAL SUSPENSION 5 ML PO ×2 (09:56→17:27)
[2023-06-26] MEDS: KCL 20 MEQ PO ×2 (09:56→19:48)
[2023-06-26] MEDS: MYCOSTATIN ORAL SUSPENSION PO ×2 (14:02→21:21)
--- NOTE | 2023-06-26 14:05 | CM ---
CM following re: discharge planning.
Reviewed pt's chart. Per MD, await for primary biopsy, continue supportive care.
D/C plan; uncertain at this time and will depend on pt's progress.
CM will follow with discharge plan updates as hospitalization progresses
--- NOTE | 2023-06-26 15:27 | W.PN.ONC ---
Today's Communication / Plan
-
s/p bone marrow yesterday w/ significant plasma cell population in marrow - await additional pathologic assessment
transfuse plts
follow CBC
Impression
Impression
Multiple myeloma/plasma cell leukemia, recently with progressive disease
Volume overload from transfusions
Plan
Plan
-transfuse plts today
-s/p bone marrow yesterday w/ preliminary findings as per pathologist - revealing significant plasma cell population in the marrow
-will await additional pathologic evaluation
-check repeat SPEP, light chains, QIGs
-follow CBC
-transfuse prn
Subjective/Objective
Subjective/Objective
no pain, feels slightly better, afebrile
Vital Signs:
Vital Signs
Temp Pulse Resp BP Pulse Ox
97.7 F 87 22 94/50 98
06/26/23 11:19 06/26/23 14:00 06/26/23 14:00 06/26/23 14:00 06/26/23 14:00
Lab Results:
Laboratory Data
WBC 4.0 10^3/uL (4.8-10.8) L 06/26/23 04:22
Hgb 7.5 g/dL (13.0-18.0) L 06/26/23 04:22
Plt Count 9 10^3/uL (130-400) L* D 06/26/23 04:22
PT 16.3 Sec (11.4-14.6) H 06/25/23 04:03
INR 1.31 06/25/23 04:03
eGFR 39.02 06/26/23 04:22
Exam: unchanged
[2023-06-26] MEDS: MAGNESIUM SULFATE 100 IV (16:03)
--- NOTE | 2023-06-26 16:28 | VNURNOTE ---
Chart reviewed, [facility] referral to be made closer to discharge.
--- NOTE | 2023-06-26 16:54 | W.CON.NEPH ---
Medical History
-
Chief Complaint: BERTA
History of Present Illness:
Pt with multiple myeloma, recently with disease progression warranting change in therapy.� He had been on Revlimid/Darzalex.� Revlimid held since March.� Beginning 06/09, he started with transfusion requirement and since then has required 4 units
PRBC's, 6 units platelets.� He started Pomalyst 06/18.� Came to ED with hypoxic respiratory failure, progressive cytopenias.� He admits to new low back pain starting about 2 weeks ago, states up and down backs of legs, hurts to walk.� Denies fevers,
chills.� Denies bleeding. Today his creatinine increased from 1.4 up to 1.7 and we are asked to assist with management of his acute kidney injury. His blood pressure is marginal. He is critically ill in the ICU
Past Medical History
Essential Hypertension
Hyperlipidemia
CKD Stage II
Multiple Myeloma
Plasma Cell Leukemia
Chronic Thrombocytopenia
COPD
Lymphedema
Hypothyroidism
BPH
Glaucoma
Hernia repair
Shoulder surgery
Social History
Tobacco: Non-Smoker
Drug: None
Family History
No CKD
Allergies / Home Medications
Allergy/AdvReac Type Severity Reaction Status Date / Time
No Known Allergies Allergy Verified 06/21/23 23:06
Medication Instructions Recorded Confirmed Type
latanoprost 0.005 % eye drops 1 drp BOTH EYES HS Eye condition 09/09/21 06/22/23 History
tamsulosin 0.4 mg capsule 0.8 mg PO HS Urinary Issue 09/09/21 06/22/23 History
docusate sodium 100 mg capsule 100 mg PO BIDPRN PRN constipation 09/19/21 06/22/23 History
finasteride 5 mg tablet 5 mg PO HS Urinary Issue 09/19/21 06/22/23 History
polyethylene glycol 3350 17 gram 17 grams PO DAILYPRN PRN 09/19/21 06/22/23 History
oral powder packet constipation
simvastatin 40 mg tablet 20 mg PO HS High Cholesterol 10/16/21 06/22/23 History
carvedilol 6.25 mg tablet 6.25 mg PO BID Blood Pressure 02/20/22 06/22/23 History
acetaminophen 325 mg tablet 650 mg PO Q4HPRN PRN mild 03/14/23 06/22/23 History
pain/fever
acyclovir 400 mg tablet 400 mg PO BID prophylaxis for 03/14/23 06/22/23 History
herpes zoster
dorzolamide 22.3 mg-timolol 6.8 1 drp BOTH EYES BID Eye Condition 03/14/23 06/22/23 History
mg/mL eye drops
gabapentin 300 mg capsule 600 mg PO HS Pain 03/14/23 06/22/23 History
lorazepam 0.5 mg tablet 0.5 mg PO HS mental health/sleep 03/14/23 06/22/23 History
montelukast 10 mg tablet 10 mg PO USEASDIRECTD 03/14/23 06/22/23 History
Lung/Breathing Issues
fluticasone 250 mcg-salmeterol 50 1 inh inhalation R BID 04/18/23 06/22/23 History
mcg/dose blistr powdr for Lung/Breathing Issues
inhalation (Advair Diskus)
dexamethasone 4 mg tablet 4 mg PO . DIRECTED 06/08/23 06/22/23 History
Anti-Inflammatory
furosemide 40 mg tablet 20 mg PO DAILY PRN swelling 06/08/23 06/22/23 History
pantoprazole 40 mg tablet,delayed 40 mg PO DAILY@1700 06/08/23 06/22/23 History
release (Protonix) Gastrointestinal Issue
pomalidomide 2 mg capsule 2 mg PO DAILY Cancer 06/17/23 06/22/23 History
daratumumab 20 mg/mL intravenous 1,800 mg IV MONTHLY Cancer 06/22/23 06/22/23 History
solution
tramadol 50 mg tablet 50 mg PO BIDPRN PRN Pain 06/22/23 06/22/23 History
Review of Systems
-
Mild shortness of breath. No chest pain. Diarrhea. No change in urine output. No abdominal pain. Back pain as above. the remainder of the complete review of systems was negative
Physical Exam
Vital Signs
Vital Signs
Temp Pulse Resp BP Pulse Ox
97.5 F 87 22 94/50 98
06/26/23 15:49 06/26/23 14:00 06/26/23 14:00 06/26/23 14:00 06/26/23 14:00
Lab Results
WBC 4.0 10^3/uL (4.8-10.8) L 06/26/23 04:22
RBC 2.27 10^6/uL (4.70-6.10) L 06/26/23 04:22
Hgb 7.5 g/dL (13.0-18.0) L 06/26/23 04:22
Hct 21.7 % (39.0-52.0) L 06/26/23 04:22
Plt Count 9 10^3/uL (130-400) L* D 06/26/23 04:22
Sodium 136 mmol/L (135-145) 06/26/23 04:22
Potassium 4.6 mmol/L (3.5-5.1) 06/26/23 04:22
Chloride 106 mmol/L (98-107) 06/26/23 04:22
Carbon Dioxide 25 mmol/L (22-30) 06/26/23 04:22
BUN 56 mg/dl (9-20) H 06/26/23 04:22
Creatinine 1.7 mg/dL (0.7-1.3) H 06/26/23 04:22
eGFR 39.02 06/26/23 04:22
Glucose 140 mg/dl (70-99) H 06/26/23 04:22
Calcium 7.5 mg/dl (8.4-10.2) L 06/26/23 04:22
Qwl-W-Hiuoepjmkgz Pept 702 pg/ml 06/21/23 23:26
Albumin 2.4 g/dl (3.5-5.0) L 06/21/23 23:26
Physical Exam
General: AOx3
HEENT: PERRL, EOMI, Ear/Nose Intact, Hearing Normal, Oropharynx Clear/Moist (dry), Neck Supple, Trachea Midline and No Thyromegaly
Respiratory: Normal Excursion and Other (Decreased breath sounds at the bases)
Cardiac: Regular Rate/Rhythm
Abdomen: Soft, Nontender, Nondistended, Normal Bowel Sounds and No Hepatosplenomegaly
Musculoskeletal: Edema (Thighs)
Skin: No Rash and Normal Turgor
Psych: Mood/afflect pleasant and Insight/judgement good
Assessment/Plan
-
Assessment
Bilateral pleural effusions
Hypoxemic respiratory insufficiency
Multiple myeloma/plasma cell leukemia
Pancytopenia
Acute kidney injury
CKD 3A
Oral mucositis likely chemotherapy related and candidiasis
Hypocalcemia
COPD without Acute Exacerbation on home oxygen.� Acute on chronic hypoxic respiratory failure.
Hypertension, now hypotension
BPH
Plan
Check bladder scan, however will try to avoid Nichole catheter.
Follow BMP
Midodrine 2.5 mg twice daily
Replace calcium as needed.
Check urine studies.
I suspect BERTA is more prerenal. Given his history, this does not appear to be related to hypercalcemia but there may be concern regarding myeloma kidney.
Critical care time spent 31 minutes
Data Reviewed
-
Radiology: Image Personally Visualized and interpreted (Chest x-ray on June 24, 2023 by my reading shows cardiomegaly with bilateral pleural effusions no edema)
Medical Tests (Nuc Med, Echo etc): Image Personally Visualized and interpreted (EKG on June 21, 2023 by my reading shows normal sinus rhythm) and Report Reviewed by me (Echocardiogram on 06/11/2023 shows ejection fraction 60% mild TR)
Labs: Labs Reviewed by me
[2023-06-26] MEDS: ProAmatine 2.5 MG PO (17:27)
[2023-06-26] MEDS: PROTONIX 40 MG PO (17:27)
[2023-06-26 17:42] LABS: Urine Albumin Negative (Neg - Trace); Urine Bilirubin Negative (Negative); Urine Character Clear (Clear); Urine Color Yellow; Urine Glucose Negative (Negative); Urine Ketone Negative (Negative); Urine Leukocyte Negative (Negative); Urine Nitrite Negative (Negative); Urine Occult Blood Negative (Negative); Urine Urobilinogen Negative (Neg - 1+)
--- NOTE | 2023-06-26 18:03 | W.PN.UPDATE ---
Update Note
Progress Note Update
Marrow prelim noted showing extensive plasma cell population in marrow.
Start pulsed dexamethasone 40 mg daily x 4 as previously planned.
One dose now, one in AM.
[2023-06-26 18:04] LABS: Protein/creatinine Ratio 0.3; Urine Protein 15 mg/dl; Urine Sodium 114 mmol/L (30-90)
[2023-06-26] MEDS: DECADRON 60 MG IV (18:41)
[2023-06-26] MEDS: FIRST-MOUTHWASH BLM SUSPENSION 5 ML PO (19:48)
[2023-06-26] MEDS: IMODIUM 2 MG PO (19:50)
[2023-06-26] MEDS: ATIVAN 0.5 MG PO (21:15)
[2023-06-26] MEDS: PROSCAR 5 MG PO (21:15)
[2023-06-26] MEDS: NEURONTIN 600 MG PO (21:15)
[2023-06-26] MEDS: LIPITOR 20 MG PO (21:15)
[2023-06-26] MEDS: FLOMAX 0.800000000000000044 MG PO (21:15)
[2023-06-27] VITALS (15 sets, daily range): BP systolic 89–143; BP diastolic 36–74; BMI 24.8
[2023-06-27 04:32] LABS: % Eosinophils 12.7 % (0-6); % Immature Granulocytes 1.5 % (0-0.5); % Lymphocytes 36.4 % (20.5-51.1); % Neutrophils 41.4 % (42.2-75.2); Absolute Eosinophils 0.5 10^3/uL (0-0.7); Absolute Immature Granulocytes 0.1 10^3/uL (0-0.05); Absolute Lymphocytes 1.5 10^3/uL (1.2-3.4); Absolute Monocytes 0.3 10^3/uL (0.1-0.6); Absolute Neutrophils 1.7 10^3/uL (1.4-6.5); Hematocrit 24.3 % (39.0-52.0); Hemoglobin 8.4 g/dL (13.0-18.0); Mean Corp Hgb Conc. 34.6 g/dL (33.0-37.0); Mean Corpuscular Hgb 32.7 pg (27.0-31.0); Mean Corpuscular Volume 94.6 fL (80.0-94.0); Mean Platelet Volume 9.8 fL (7.4-10.4); Nucleated Red Blood Cells % 0 % (-); Red Blood Cell Count 2.57 10^6/uL (4.70-6.10); Red Cell Dist. Width 19.9 % (11.5-14.5)
[2023-06-27 04:35] LABS: Blood Urea Nitrogen 57 mg/dl (9-20); Calcium 8.2 mg/dl (8.4-10.2); Carbon Dioxide 25 mmol/L (22-30); Chloride 104 mmol/L (98-107); Estimated Creatinine Clearance 29 ml/min; Glucose 206 mg/dl (70-99); Magnesium 2.2 mg/dl (1.6-2.3); Phosphorus 6.7 mg/dl (2.5-4.5); Potassium 5.2 mmol/L (3.5-5.1); Sodium 135 mmol/L (135-145); eGFR 39.02
[2023-06-27 04:53] LABS: Platelet Count 3 10^3/uL (130-400)
[2023-06-27] MEDS: PULMICORT 0.5 MG INH ×2 (07:36→20:40)
[2023-06-27] MEDS: VENTOLIN NEBULES 2.5 MG INH ×2 (07:38→20:40)
--- NOTE | 2023-06-27 08:34 | W.PN.NEPH.PH ---
Today's Communication / Plan
-
follow BMP
Assessment/Plan
-
Assessment
Bilateral pleural effusions
Hypoxemic respiratory insufficiency
Multiple myeloma/plasma cell leukemia
Pancytopenia
Acute kidney injury
CKD 3A
Oral mucositis likely chemotherapy related and candidiasis
Hypocalcemia
COPD without Acute Exacerbation on home oxygen.� Acute on chronic hypoxic respiratory failure.
Hypertension, now hypotension
BPH
Plan
Check bladder scan, however will try to avoid Nichole catheter.
Follow BMP
continue Midodrine 2.5 mg twice daily
Replace calcium as needed
urine studies without significant proteinuria
check uric acid
I suspect BERTA is more prerenal
-
-
Date of Service: June 27, 2023
CC / HPI / ROS
-
Chief Complaint:
BERTA
History of Present Illness:
BERTA/Cr unchanged at 1.7
BP slightly better with midodrine
remains pancytopenic
on supplemental O2
Review of Systems:
no CP
minimal SOB
Labs
-
Labs:
WBC 4.0 10^3/uL (4.8-10.8) L 06/27/23 03:58
RBC 2.57 10^6/uL (4.70-6.10) L 06/27/23 03:58
Hgb 8.4 g/dL (13.0-18.0) L 06/27/23 03:58
Hct 24.3 % (39.0-52.0) L 06/27/23 03:58
Plt Count 3 10^3/uL (130-400) L* D 06/27/23 03:58
Sodium 135 mmol/L (135-145) 06/27/23 03:58
Potassium 5.2 mmol/L (3.5-5.1) H 06/27/23 03:58
Chloride 104 mmol/L (98-107) 06/27/23 03:58
Carbon Dioxide 25 mmol/L (22-30) 06/27/23 03:58
BUN 57 mg/dl (9-20) H 06/27/23 03:58
Creatinine 1.7 mg/dL (0.7-1.3) H 06/27/23 03:58
eGFR 39.02 06/27/23 03:58
Glucose 206 mg/dl (70-99) H 06/27/23 03:58
Calcium 8.2 mg/dl (8.4-10.2) L 06/27/23 03:58
Phosphorus 6.7 mg/dl (2.5-4.5) H 06/27/23 03:58
Fea-C-Ayuwvcluwhb Pept 702 pg/ml 06/21/23 23:26
Albumin 2.4 g/dl (3.5-5.0) L 06/21/23 23:26
Physical Exam
-
Vital Signs:
Vital Signs
Temp Pulse Resp BP Pulse Ox
98.0 F 81 14 110/51 96
06/27/23 03:48 06/27/23 07:40 06/27/23 07:40 06/27/23 04:00 06/27/23 07:40
Cardiovascular:: Regular rate and rhythm
Respiratory:: Bilateral: Coarse
Lung Excursion:: Normal
Abdomen:: Nontender and Soft
Bowel Sounds:: Normal
Extremity Edema:: None: Bilateral:
[2023-06-27] MEDS: DECADRON 60 MG IV (08:55)
[2023-06-27] MEDS: IMODIUM 2 MG PO ×2 (08:56→20:11)
[2023-06-27] MEDS: MYCOSTATIN ORAL SUSPENSION 5 ML PO ×4 (08:56→22:00)
[2023-06-27] MEDS: KCL 20 MEQ PO (08:56)
[2023-06-27] MEDS: ZOVIRAX 400 MG PO ×2 (08:56→19:57)
[2023-06-27] MEDS: ProAmatine 2.5 MG PO ×2 (08:56→18:03)
[2023-06-27] MEDS: COREG 3.125 MG PO ×2 (08:57→19:57)
[2023-06-27] MEDS: COSOPT EYE DROPS 1 DROP BOTH EYES ×2 (08:58→19:57)
[2023-06-27] MEDS: LASIX 40 MG PO (09:07)
--- NOTE | 2023-06-27 10:43 | W.PN.HOSP.TC ---
Today's Communication/Plan
-
Platelet transfusions today. IV steroids.
Assessment / Plan
Assessment / Plan
Physical exam:
General: Acutely ill
HEENT: Normocephalic, Atraumatic and Moist Mucous Membranes but oral plaques
Respiratory: Decreased breath sounds and bilateral crackles; Negative Wheezes or Rhonchi
Cardiac: Regular Rhythm and S1/S2
GI: Soft, Nontender and Nondistended
Musculoskeletal: No Clubbing, No Cyanosis and there is Edema
Neuro: Awake, Alert and Oriented
Psych: Calm
A/P:
Pulmonary Edema / Bilateral Pleural Effusions
Acute HFpEF (EF 6065%)
Acute Hypoxemic Respiratory Insufficiency secondary to the above
-Transition to oral diuretics on 06/24 by cardiology, Lasix 40 mg daily (weight around 160 pounds which is his dry weight)
-Will use as needed Lasix for transfusions
-Repeated chest x-ray on 06/24 mild to moderate bilateral pleural effusions slightly increased and compressive atelectasis. I personally reviewed the chest x-ray today and bilateral effusions more prominent--> ideally we could do thoracentesis
but with his thrombocytopenia we are limited. I dosed Lasix 40 m IV x 1 on .
-Updated Na, daughter today on 06/26
Multiple Myeloma
Plasma Cell Leukemia
Pancytopenias
-S/P bone marrow biopsy on ---> per oncology preliminary bone marrow results shows extensive pulm cell population in the bone marrow. Follow-up definitive report.
-Ordered platelet transfusion today (Plt 3 today)
-Started on steroids per oncology on 06/25
-On 06/24 there has been some refractoriness to transfusions so hematology ordering HLA typed for possible HLA matched platelet if needed.
-Appreciate hematology oncology consultation
-Plan to start steroids after biopsy
-Hemoglobin 8.4 today
Oral mucositis likely chemotherapy related and candidiasis
-Continue Magic wash
-Add oral nystatin
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
�- SCr = 1.6 compared to baseline / discharge value of 1.1. Today creatinine 1.7
�- SCr was also 1.6 at the time of prior admission.
�-Avoid nephrotoxic
-Continue monitor renal function closely
-Nephrology consult
Hypocalcemia
-Calcium given and calcium today is 8.2
COPD without Acute Exacerbation on home oxygen. Acute on chronic hypoxic respiratory failure.
-He typically uses 2 L of oxygen but he increased to 5 L prior to admission. He is currently on 3 to 4 L. Titrate down as able
�- No wheezing / increased cough but at increased risk of COPD exacerbation. He is on steroids for multiple myeloma and this could help his underlying COPD.
�- Continue inhaled corticosteroid and albuterol PRN.
�- Follow for any changes.
Benign Hypertension
�-Continue low-dose carvedilol to allow for diuresis--> Coreg down from 6.25 to 3.125 mg twice a day
�- Adjust regimen as needed.
BPH
�- Stable.� Continue tamsulosin.
�- DO NOT straight cath if possible given risk of bleeding from severe thrombocytopenia.
DVT Prophylaxis:� SCDs
Code Status:� DNR
Total time spent on today's encounter was 52 minutes which included time spent in counseling the patient/family regarding diagnosis and treatment plan as listed above, goals of care, and symptom management. Case was discussed with nursing staff,
specialists, and care coordinators/case management. All labs and imaging personally reviewed by me. Remainder the time spent in detailed review of previous records, lab data, imaging, and other medical provider documentation.
Anticipated Discharge: > 48 hours
Subjective/Interval History
-
Date of Service: June 27, 2023
Patient denies any active bleeding. No worsening shortness of breath or chest pain and remains on supplemental oxygen.
Objective Data
-
Labs:
Laboratory Results
06/27/23
03:58
WBC 4.0 L
Hgb 8.4 L
Hct 24.3 L
Plt Count 3 L* D
Sodium 135
Potassium 5.2 H
Chloride 104
Carbon Dioxide 25
BUN 57 H
Creatinine 1.7 H
Glucose 206 H
Calcium 8.2 L
Vital Signs:
Vital Signs
Temp Pulse Resp BP Pulse Ox
98.0 F 68 14 101/53 97
06/27/23 03:48 06/27/23 08:56 06/27/23 07:40 06/27/23 08:56 06/27/23 08:00
I&O
06/26/23 06/27/23 06/28/23
06:59 06:59 06:59
Intake Total 362 / 362 240 / 240
Output Total 800 / 800 500 / 500 125 / 125
Balance -438 / -438 -260 / -260 -125 / -125
Review of Systems
-
All other systems: Reviewed and negative
--- NOTE | 2023-06-27 11:32 | PTCARENOTE ---
Pt received from manager of sustainability RN. Ox3 and appropriate, hard of hearing. NSr on tele, + pulses. Dyspneic at rest, currently on 4L NC sat of 96%, breath sounds diminished at the bases. Pt incontinent of diarrhea overnight. Immodium given. Pt had a
small loose BM this morning. Poor appetite. Urinal in place, using without issue. IV sites intact. Pt making needs known.
[2023-06-27] MEDS: PROTONIX 40 MG PO (18:03)
[2023-06-27] MEDS: FIRST-MOUTHWASH BLM SUSPENSION 5 ML PO (18:04)
--- NOTE | 2023-06-27 19:30 | PTCARENOTE ---
Received pt. at 1900. Pt. currently in bed. Awake, alert, and oriented. Hard of hearing. Moves all extremities. Follows simple commands. Heart rhythm sinus. Blood pressure normotensive. Currently on nasal cannula. Lungs sound diminished. Regular
diet ordered, poor appetite. Patient with multiple episodes of diarrhea today per previous RN. Voiding in urinal without issue. Skin as documented. HLA cross match resulted. Blood card sent for 1u platelets. Awaiting unit. Discussed plan of care.
Vital signs stable at this time.
[2023-06-27] MEDS: FLOMAX 0.800000000000000044 MG PO (22:00)
[2023-06-27] MEDS: PROSCAR 5 MG PO (22:01)
[2023-06-27] MEDS: LIPITOR 20 MG PO (22:01)
[2023-06-27] MEDS: NEURONTIN 600 MG PO (22:02)
--- NOTE | 2023-06-27 23:59 | PTCARENOTE ---
Pt. received his 1u platelets. Will recheck CBC with AM labs. Vital signs stable at this time.
[2023-06-28] VITALS (9 sets, daily range): BP systolic 101–139; BP diastolic 46–68; BMI 24.8
[2023-06-28 03:20] LABS: Mean Corp Hgb Conc. 35.4 g/dL (33.0-37.0); Mean Corpuscular Hgb 33.5 pg (27.0-31.0); Mean Corpuscular Volume 94.5 fL (80.0-94.0); Mean Platelet Volume 12.3 fL (7.4-10.4); Red Cell Dist. Width 19.6 % (11.5-14.5); White Blood Cell Count 3.9 10^3/uL (4.8-10.8)
--- NOTE | 2023-06-28 03:20 | PTCARENOTE ---
Pt. assessment unchanged. AM labs drawn. Vital signs stable at this time.
[2023-06-28 03:42] LABS: Blood Urea Nitrogen 73 mg/dl (9-20); Calcium 7.8 mg/dl (8.4-10.2); Carbon Dioxide 21 mmol/L (22-30); Chloride 106 mmol/L (98-107); Estimated Creatinine Clearance 30 ml/min; Glucose 160 mg/dl (70-99); Potassium 4.8 mmol/L (3.5-5.1); Sodium 136 mmol/L (135-145); eGFR 41.96
[2023-06-28 03:53] LABS: Hematocrit 18.9 % (39.0-52.0); Hemoglobin 6.7 g/dL (13.0-18.0); Platelet Count 13 10^3/uL (130-400)
[2023-06-28] MEDS: VENTOLIN NEBULES 2.5 MG INH (07:27)
[2023-06-28] MEDS: PULMICORT 0.5 MG INH (07:27)
--- NOTE | 2023-06-28 08:38 | W.PN.HOSP.TC ---
Today's Communication/Plan
-
Blood transfusion today. Hematology follow-up
Assessment / Plan
Assessment / Plan
Physical exam:
General: Acutely ill
HEENT: Normocephalic, Atraumatic and Moist Mucous Membranes but oral plaques
Respiratory: Decreased breath sounds and bilateral crackles; Negative Wheezes or Rhonchi
Cardiac: Regular Rhythm and S1/S2
GI: Soft, Nontender and Nondistended
Musculoskeletal: No Clubbing, No Cyanosis and there is Edema
Neuro: Awake, Alert and Oriented
Psych: Calm
A/P:
Pulmonary Edema / Bilateral Pleural Effusions
Acute HFpEF (EF 6065%)
Acute Hypoxemic Respiratory Insufficiency secondary to the above
-Transition to oral diuretics on 06/24 by cardiology, Lasix 40 mg daily (weight around 160 pounds which is his dry weight)
-Will use as needed Lasix for transfusions
-Repeated chest x-ray on 06/24 mild to moderate bilateral pleural effusions slightly increased and compressive atelectasis. I personally reviewed the chest x-ray today and bilateral effusions more prominent--> ideally we could do thoracentesis
but with his thrombocytopenia we are limited. I dosed Lasix 40 m IV x 1 on .
-Updated Na, daughter today on 06/26
Multiple Myeloma
Plasma Cell Leukemia
Pancytopenias
-S/P bone marrow biopsy on ---> per oncology preliminary bone marrow results shows extensive pulm cell population in the bone marrow. Follow-up definitive report.
-Status post platelet transfusion yesterday (Plt 13 today)
-Started on steroids per oncology on 06/25
-On 06/24 there has been some refractoriness to transfusions so hematology ordering HLA typed for possible HLA matched platelet if needed.
-Appreciate hematology oncology consultation
-Plan to start steroids after biopsy
-Plan for blood transfusion per hematology, hemoglobin 6.7 today
Oral mucositis likely chemotherapy related and candidiasis
-Continue Magic wash
-Continue oral nystatin
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
�- SCr = 1.6 compared to baseline / discharge value of 1.1. Today creatinine 1.6
-Holding diuretic and k by myself
-Gentle IV fluid hydration per nephrology today
�- SCr was also 1.6 at the time of prior admission.
�-Avoid nephrotoxic
-Continue monitor renal function closely
-Nephrology consult
Hypocalcemia
-Calcium given and calcium today is 8.2
COPD without Acute Exacerbation on home oxygen. Acute on chronic hypoxic respiratory failure.
-He typically uses 2 L of oxygen but he increased to 5 L prior to admission. He is currently on 3 to 4 L. Titrate down as able
�- No wheezing / increased cough but at increased risk of COPD exacerbation. He is on steroids for multiple myeloma and this could help his underlying COPD.
�- Continue inhaled corticosteroid and albuterol PRN.
�- Follow for any changes.
Benign Hypertension
�-Continue low-dose carvedilol to allow for diuresis--> Coreg down from 6.25 to 3.125 mg twice a day
�- Adjust regimen as needed.
BPH
�- Stable.� Continue tamsulosin.
�- DO NOT straight cath if possible given risk of bleeding from severe thrombocytopenia.
DVT Prophylaxis:� SCDs
Code Status:� DNR
Total time spent on today's encounter was 52 minutes which included time spent in counseling the patient/family regarding diagnosis and treatment plan as listed above, goals of care, and symptom management. Case was discussed with nursing staff,
specialists, and care coordinators/case management. All labs and imaging personally reviewed by me. Remainder the time spent in detailed review of previous records, lab data, imaging, and other medical provider documentation.
Anticipated Discharge: > 48 hours
Subjective/Interval History
-
Date of Service: June 28, 2023
Patient denies any bleeding. Denies any worsening shortness of breath. No chest pain. Afebrile. Remains on 4 L of oxygen
Objective Data
-
Labs:
Laboratory Results
06/28/23
03:00
WBC 3.9 L
Hgb 6.7 L* D
Hct 18.9 L*
Plt Count 13 L* D
Sodium 136
Potassium 4.8
Chloride 106
Carbon Dioxide 21 L
BUN 73 H
Creatinine 1.6 H
Glucose 160 H
Calcium 7.8 L
Vital Signs:
Vital Signs
Temp Pulse Resp BP Pulse Ox
97.4 F 75 16 109/58 98
06/28/23 03:02 06/28/23 07:30 06/28/23 07:30 06/28/23 06:00 06/28/23 07:30
I&O
06/27/23 06/28/23 06/29/23
06:59 06:59 06:59
Intake Total 240 / 240 868 / 868
Output Total 500 / 500 1200 / 1200
Balance -260 / -260 -332 / -332
Review of Systems
-
All other systems: Reviewed and negative
[2023-06-28] MEDS: ProAmatine 2.5 MG PO ×2 (08:51→17:38)
[2023-06-28] MEDS: COREG 3.125 MG PO ×2 (08:51→19:50)
[2023-06-28] MEDS: COSOPT EYE DROPS 1 DROP BOTH EYES ×2 (08:52→19:52)
[2023-06-28] MEDS: MYCOSTATIN ORAL SUSPENSION 5 ML PO ×4 (08:52→21:23)
[2023-06-28] MEDS: ZOVIRAX 400 MG PO ×2 (08:52→19:51)
[2023-06-28] MEDS: DECADRON 60 MG IV (09:07)
--- NOTE | 2023-06-28 09:43 | W.PN.NEPH.PH ---
Today's Communication / Plan
-
IVF
Assessment/Plan
-
Assessment
Bilateral pleural effusions
Hypoxemic respiratory insufficiency
Multiple myeloma/plasma cell leukemia
Pancytopenia
Acute kidney injury
CKD 3A
Oral mucositis likely chemotherapy related and candidiasis
Hypocalcemia
COPD without Acute Exacerbation on home oxygen.� Acute on chronic hypoxic respiratory failure.
Hypertension, now hypotension
BPH
Plan
Follow BMP
continue Midodrine 2.5 mg twice daily
Replace calcium as needed
urine studies without significant proteinuria
allopurinol
IVF today
-
-
Date of Service: June 28, 2023
CC / HPI / ROS
-
Chief Complaint:
BERTA
History of Present Illness:
BERTA/Cr unchanged at 1.6
BP slightly better with midodrine
remains pancytopenic
on supplemental O2
uric acid high
Review of Systems:
no CP
minimal SOB
Labs
-
Labs:
WBC 3.9 10^3/uL (4.8-10.8) L 06/28/23 03:00
RBC 2.00 10^6/uL (4.70-6.10) L 06/28/23 03:00
Hgb 6.7 g/dL (13.0-18.0) L* D 06/28/23 03:00
Hct 18.9 % (39.0-52.0) L* 06/28/23 03:00
Plt Count 13 10^3/uL (130-400) L* D 06/28/23 03:00
Sodium 136 mmol/L (135-145) 06/28/23 03:00
Potassium 4.8 mmol/L (3.5-5.1) 06/28/23 03:00
Chloride 106 mmol/L (98-107) 03/03/24 03:00
Carbon Dioxide 21 mmol/L (22-30) L 06/28/23 03:00
BUN 73 mg/dl (9-20) H 06/28/23 03:00
Creatinine 1.6 mg/dL (0.7-1.3) H 06/28/23 03:00
eGFR 41.96 06/28/23 03:00
Glucose 160 mg/dl (70-99) H 06/28/23 03:00
Calcium 7.8 mg/dl (8.4-10.2) L 06/28/23 03:00
Phosphorus 6.7 mg/dl (2.5-4.5) H 06/27/23 03:58
Ssx-D-Haluxfdeeqn Pept 702 pg/ml 06/21/23 23:26
Albumin 2.4 g/dl (3.5-5.0) L 06/21/23 23:26
Physical Exam
-
Vital Signs:
Vital Signs
Temp Pulse Resp BP Pulse Ox
98.7 F 75 16 102/53 95
06/28/23 07:55 06/28/23 08:51 06/28/23 07:30 06/28/23 08:51 06/28/23 09:34
Cardiovascular:: Regular rate and rhythm
Respiratory:: Bilateral: Coarse
Lung Excursion:: Normal
Abdomen:: Nontender and Soft
Bowel Sounds:: Normal
Extremity Edema:: None: Bilateral:
[2023-06-28] MEDS: NSS 1000 IV (11:13)
[2023-06-28] MEDS: ZYLOPRIM 100 MG PO (11:13)
--- NOTE | 2023-06-28 11:36 | W.PN.ONC2 ---
Today's Communication / Plan
-
In process of addressing goals of care. My recommendation is for hospice.
Performance status has improved on dex and pt now appears comfortable.
Kidney function has stabilized and O2 requirement stable to improved on steroid. This does not mean that we can start pomalidamide however. Any cancer-directed treatment would exacerbate thrombocytopenia and he is platelet transfusion refractory.
Will speak with Pathology and Dr. Ayon tomorrow.
Time spent reviewing chart, discussing prognosis with pt and , then daughter Na: 50 minutes.
Impression
Impression
Multiple myeloma/plasma cell leukemia, recently with progressive disease
Volume overload from transfusions
Platelet refractoriness
Progressive anemia
Plan
Plan
Discussed prognosis today with pt. He is aware of terminal prognosis with extensive marrow involvement by myeloma, platelet refractoriness, transfusion-dependent anemia.
He does not want transfer to [facility] were it to be offered.
This morning he was speaking with his daughter about wanting to be buried in dress blues ([place]) and where he wants to be buried.
Daughter indicates that she and her siblings, all medical equipment technician, understand prognosis.
having more difficulty accepting prognosis.
For her benefit, I will speak with Pathology in the am to get a sense of the % marrow replacement by cancer. Will also speak with Dr. Ayon for her peace of mind.
Subjective/Objective
Chief Complaint
Progressive multiple myeloma
Subjective
Appears much better than earlier this week. Pt states 'That does not change the fact that I am dying,' when we discussed that modest improvement in platelet count with HLA-matched platelets given overnight.
Pt started high-dose Dex 06/25.
Vital Signs:
Vital Signs
Temp Pulse Resp BP Pulse Ox
98.2 F 79 25 113/55 96
06/28/23 11:12 06/28/23 11:00 06/28/23 11:00 06/28/23 10:00 06/28/23 11:26
Lab Results:
Laboratory Data
WBC 3.9 10^3/uL (4.8-10.8) L 06/28/23 03:00
Hgb 6.7 g/dL (13.0-18.0) L* D 06/28/23 03:00
Plt Count 13 10^3/uL (130-400) L* D 06/28/23 03:00
PT 16.3 Sec (11.4-14.6) H 06/25/23 04:03
INR 1.31 06/25/23 04:03
eGFR 41.96 06/28/23 03:00
Physical Exam
Awake, alert, non-toxic appearing
--- NOTE | 2023-06-28 12:29 | PTCARENOTE ---
Pt appears slightly more lethargic compared to yesterday, he understands prognosis and has been more tearful today. NSR on tele, + pulses, no edema. Dyspneic at rest, Orthopneic, 94% on 4L. Poor appetite, still having diarrhea but not as bad as
yesterday. Using urinal without difficulty. Skin is intact. IV sites intact, NSS infusing at 60mls/hr. Call elam within reach. Pt makes needs known.
[2023-06-28] MEDS: FIRST-MOUTHWASH BLM SUSPENSION 5 ML PO (14:50)
[2023-06-28] MEDS: PROTONIX 40 MG PO (17:38)
[2023-06-28] MEDS: IMODIUM 2 MG PO (17:50)
--- NOTE | 2023-06-28 19:24 | PTCARENOTE ---
pt received from previous rn- aox4, 4LNC TERESA and at rest, normal sinus on monitor. able to turn and reposition self. oral care completed with minimal assistance. no complaints at this time. all safety precautions in place, call elam within reach.
[2023-06-28] MEDS: NEURONTIN 600 MG PO (19:51)
[2023-06-28] MEDS: LIPITOR 20 MG PO (19:51)
[2023-06-28] MEDS: FLOMAX 0.800000000000000044 MG PO (19:51)
[2023-06-28] MEDS: PROSCAR 5 MG PO (19:51)
[2023-06-28] MEDS: PULMICORT INH (20:10)
[2023-06-28] MEDS: ATIVAN 0.5 MG PO (22:38)
[2023-06-29] VITALS (23 sets, daily range): BP systolic 110–137; BP diastolic 53–90
[2023-06-29] MEDS: NSS 1000 IV ×2 (03:57→22:26)
[2023-06-29 04:25] LABS: Mean Corp Hgb Conc. 35.6 g/dL (33.0-37.0); Mean Corpuscular Hgb 33.1 pg (27.0-31.0); Red Blood Cell Count 1.72 10^6/uL (4.70-6.10); Red Cell Dist. Width 19.5 % (11.5-14.5); White Blood Cell Count 2.5 10^3/uL (4.8-10.8)
[2023-06-29 04:35] LABS: Hemoglobin 5.7 g/dL (13.0-18.0); Platelet Count 5 10^3/uL (130-400)
[2023-06-29 04:40] LABS: Blood Urea Nitrogen 75 mg/dl (9-20); Calcium 7.1 mg/dl (8.4-10.2); Carbon Dioxide 20 mmol/L (22-30); Chloride 110 mmol/L (98-107); Estimated Creatinine Clearance 29 ml/min; Glucose 168 mg/dl (70-99); Potassium 4.6 mmol/L (3.5-5.1); Sodium 135 mmol/L (135-145); eGFR 39.02
[2023-06-29] MEDS: COSOPT EYE DROPS 1 DROP BOTH EYES ×2 (07:15→20:11)
[2023-06-29] MEDS: MYCOSTATIN ORAL SUSPENSION 5 ML PO (07:15)
[2023-06-29] MEDS: ProAmatine 2.5 MG PO ×2 (07:15→17:15)
[2023-06-29] MEDS: ZYLOPRIM 100 MG PO ×2 (07:16→20:11)
[2023-06-29] MEDS: COREG 3.125 MG PO ×2 (07:16→20:11)
[2023-06-29] MEDS: ZOVIRAX 400 MG PO ×2 (07:16→20:11)
[2023-06-29] MEDS: IMODIUM 2 MG PO (07:16)
--- NOTE | 2023-06-29 07:25 | W.PN.HOSP.TC ---
Today's Communication/Plan
-
Blood and platelet transfusions. Hospice care evaluation.
Assessment / Plan
Assessment / Plan
Physical exam:
General: Acutely ill
HEENT: Normocephalic, Atraumatic and Moist Mucous Membranes but oral plaques
Respiratory: Decreased breath sounds and bilateral crackles; Negative Wheezes or Rhonchi
Cardiac: Regular Rhythm and S1/S2
GI: Soft, Nontender and Nondistended
Musculoskeletal: No Clubbing, No Cyanosis and there is Edema
Neuro: Awake, Alert and Oriented
Psych: Calm
A/P:
Pulmonary Edema / Bilateral Pleural Effusions
Acute HFpEF (EF 6065%)
Acute Hypoxemic Respiratory Insufficiency secondary to the above
-Transition to oral diuretics on 06/24 by cardiology, Lasix 40 mg daily on hold but will resume soon (weight around 160 pounds which is his dry weight)
-Will use as needed Lasix for transfusions
-Repeated chest x-ray on 06/24 mild to moderate bilateral pleural effusions slightly increased and compressive atelectasis. I personally reviewed the chest x-ray today and bilateral effusions more prominent--> ideally we could do thoracentesis
but with his thrombocytopenia we are limited. Lasix 40 m IV x 1 on .
-Updated Na, daughter today on 06/28
Multiple Myeloma
Plasma Cell Leukemia
Pancytopenias
-S/P bone marrow biopsy on ---> per oncology preliminary bone marrow results shows extensive pulm cell population in the bone marrow. Follow-up definitive report.
-I ordered platelet transfusions today, platelets are 5
-Hematology ordered blood transfusions and planning on transfusion today, hemoglobin 5.7
-Started on steroids per oncology on 06/25
-On 06/24 there has been some refractoriness to transfusions so hematology ordering HLA typed for possible HLA matched platelet if needed.
-Appreciate hematology oncology consultation
-Discussed with hematology oncology today and prognosis poor and recommended hospice
-Discussed with patient, , and daughter Na (case making machine operator here). Hospice care consulted today.
Oral mucositis likely chemotherapy related and candidiasis
-Continue Magic wash
-Continue oral nystatin
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
�- SCr = 1.6 compared to baseline / discharge value of 1.1. Today creatinine 1.7
-Holding diuretic and k by myself and will resume in a.m.
-Gentle IV fluid hydration per nephrology today
�- SCr was also 1.6 at the time of prior admission.
�-Avoid nephrotoxic
-Continue monitor renal function closely
-Nephrology consult
Hypocalcemia
-Calcium given and calcium today is 7.1
COPD without Acute Exacerbation on home oxygen. Acute on chronic hypoxic respiratory failure.
-He typically uses 2 L of oxygen but he increased to 5 L prior to admission. He is currently on 4 L. Titrate down as able
�- No wheezing / increased cough but at increased risk of COPD exacerbation. He is on steroids for multiple myeloma and this could help his underlying COPD.
�- Continue inhaled corticosteroid and albuterol PRN.
�- Follow for any changes.
Benign Hypertension
�-Continue low-dose carvedilol to allow for diuresis--> Coreg down from 6.25 to 3.125 mg twice a day
�- Adjust regimen as needed.
BPH
�- Stable.� Continue tamsulosin.
�- DO NOT straight cath if possible given risk of bleeding from severe thrombocytopenia.
DVT Prophylaxis:� SCDs
Code Status:� DNR
Total time spent on today's encounter was 52 minutes which included time spent in counseling the patient/family regarding diagnosis and treatment plan as listed above, goals of care, and symptom management. Case was discussed with nursing staff,
specialists, and care coordinators/case management. All labs and imaging personally reviewed by me. Remainder the time spent in detailed review of previous records, lab data, imaging, and other medical provider documentation.
Anticipated Discharge: Within 24 hours
Subjective/Interval History
-
Date of Service: June 29, 2023
Patient had mild bleeding from his mouth when he was brushing his teeth this morning. No melena or hematemesis or epistaxis. Afebrile
Objective Data
-
Labs:
Laboratory Results
06/29/23
04:02
WBC 2.5 L
Hgb 5.7 L*
Hct 16.0 L*
Plt Count 5 L* D
Sodium 135
Potassium 4.6
Chloride 110 H
Carbon Dioxide 20 L
BUN 75 H
Creatinine 1.7 H
Glucose 168 H
Calcium 7.1 L
Vital Signs:
Vital Signs
Temp Pulse Resp BP Pulse Ox
98.1 F 68 13 111/53 96
06/29/23 04:22 06/29/23 06:00 06/29/23 06:00 06/29/23 06:00 06/29/23 06:00
I&O
06/28/23 06/29/23 06/30/23
06:59 06:59 06:59
Intake Total 868 / 868 1080 / 1080
Output Total 1200 / 1200 1100 / 1100
Balance -332 / -332 -20 / -20
[2023-06-29] MEDS: PULMICORT INH (07:47)
[2023-06-29] MEDS: DECADRON 60 MG IV (07:49)
--- NOTE | 2023-06-29 08:54 | PTOTSP ---
Reviewed chart and noted hgb and platelets dropped further. not safe to participate in PT activity. Will continue to hold PT.
--- NOTE | 2023-06-29 09:27 | PTCARENOTE ---
Pt more lethargic compared to yesterday, hgb 5.7 on AM labs. Call placed to blood bank, need further review from [facility] but a unit should be ready later today. Ox3, pt awakens easily but quickly falls back asleep. NSR on tele, + pulses, no edema.
Currently on 4L NC, pt dyspneic at rest and tachypneic. Pt using urinal without difficulty. Skin intact. Call elam within reach, pt makes needs known.
[2023-06-29 10:47] LABS: IgG 2395 mg/dl (700-1600)
--- NOTE | 2023-06-29 10:56 | HOSPNOTE ---
Spoke with patient and family about hospice and the philosophy. The patient is in agreement to have blood transfusion today and continue fluids and home tomorrow on hospice services. Patient will need transport and OOH DNR needed. Equipment was
ordered and will be delivered late this afternoon. Please schedule transport tomorrow morning. Attending and case management aware of plan.
[2023-06-29] MEDS: MORPHINE ORAL SOLUTION 10 MG PO (13:11)
[2023-06-29] MEDS: MYCOSTATIN ORAL SUSPENSION PO ×3 (13:50→21:31)
--- NOTE | 2023-06-29 14:02 | PTCARENOTE ---
Received patient on transfer from ICU via bed with PRBCs infusing. Patient refused nystatin. Patient received morphine prior to transfer and resport breathing feels somewhat better. Family brought in soup for patient, but he declined; put in
refrigeratory. Family remains at bedside.
--- NOTE | 2023-06-29 14:43 | W.PN.NEPH.PH ---
Today's Communication / Plan
-
- increased allopurinol dosing
Assessment/Plan
-
Assessment
Bilateral pleural effusions
Hypoxemic respiratory insufficiency
Multiple myeloma/plasma cell leukemia
Pancytopenia
Acute kidney injury
CKD 3A
Oral mucositis likely chemotherapy related and candidiasis
Hypocalcemia
COPD without Acute Exacerbation on home oxygen.� Acute on chronic hypoxic respiratory failure.
Hypertension, now hypotension
BPH
Plan
Follow BMP
continue Midodrine 2.5 mg twice daily
Replace calcium as needed
urine studies without significant proteinuria
NAGWILLIS noted --> ordered sodium bicarbonate
increased allopurinol to 100mg BID
obtain phos and uric acid daily
continue with NS today at 60cc/hr
goals of care ongoing with heme/onc, considering hospice
-
-
Date of Service: June 29, 2023
CC / HPI / ROS
-
Chief Complaint:
BERTA
History of Present Illness:
BERTA/Cr unchanged at 1.6
BP slightly better with midodrine
remains pancytopenic
on supplemental O2
uric acid high
Review of Systems:
no CP
minimal SOB
Labs
-
Labs:
WBC 2.5 10^3/uL (4.8-10.8) L 06/29/23 04:02
RBC 1.72 10^6/uL (4.70-6.10) L 06/29/23 04:02
Hgb 5.7 g/dL (13.0-18.0) L* 06/29/23 04:02
Hct 16.0 % (39.0-52.0) L* 06/29/23 04:02
Plt Count 5 10^3/uL (130-400) L* D 06/29/23 04:02
Sodium 135 mmol/L (135-145) 06/29/23 04:02
Potassium 4.6 mmol/L (3.5-5.1) 06/29/23 04:02
Chloride 110 mmol/L (98-107) H 06/29/23 04:02
Carbon Dioxide 20 mmol/L (22-30) L 06/29/23 04:02
BUN 75 mg/dl (9-20) H 06/29/23 04:02
Creatinine 1.7 mg/dL (0.7-1.3) H 06/29/23 04:02
eGFR 39.02 06/29/23 04:02
Glucose 168 mg/dl (70-99) H 06/29/23 04:02
Calcium 7.1 mg/dl (8.4-10.2) L 06/29/23 04:02
Phosphorus 6.7 mg/dl (2.5-4.5) H 06/27/23 03:58
Khl-C-Ujoulfihqoj Pept 702 pg/ml 06/21/23 23:26
Albumin 2.4 g/dl (3.5-5.0) L 06/21/23 23:26
Physical Exam
-
Vital Signs:
Vital Signs
Temp Pulse Resp BP Pulse Ox
97.5 F 74 19 127/65 99
06/29/23 14:36 06/29/23 14:36 06/29/23 14:36 06/29/23 14:36 06/29/23 13:00
Cardiovascular:: Irregular rate and rhythm
Respiratory:: Bilateral: Coarse
Lung Excursion:: Abnormal
Abdomen:: Nontender and Soft
Bowel Sounds:: Normal
Extremity Edema:: None: Bilateral:
Nichole Catheter: No
--- NOTE | 2023-06-29 15:42 | VATNOTE ---
upon rounds family asked this VAT RN to leave IV sites alone as pt is going home in am on hospice. Sites 9 days old. family wishes honored
--- NOTE | 2023-06-29 15:51 | CM ---
CM following re: discharge planning.
Reviewed pt's chart, met with pt and spoke to pt's daughters, emotional support offered and provided.
Hospice care consult noted. Family preferred hospice. A referral to hospice made.
Per absorption and adsorption engineer a plan is for home hospice care tomorrow.
D/C plan: home with hospice care tomorrow 06/30/23.
CM will follow to assist pt with discharge plan updates as hospitalization progresses.
[2023-06-29] MEDS: PROTONIX 40 MG PO (17:15)
--- NOTE | 2023-06-29 19:34 | W.PN.ONC2 ---
Today's Communication / Plan
-
Hospice/comfort measures.
Impression
Impression
Multiple myeloma/plasma cell leukemia, recently with progressive disease
Volume overload from transfusions
Platelet refractoriness
Progressive anemia
Plan
Plan
Case d/w Pathology this morning. Marrow is replaced by plasma cells.
He is aware of terminal prognosis with extensive marrow involvement by myeloma, platelet refractoriness, transfusion-dependent anemia. His is now accepting of terminal prognosis.
Plan is noted for comfort care.
Morphine ordered for air hunger.
Subjective/Objective
Chief Complaint
Multiple myeloma
Subjective
Short of breath with talking
Vital Signs:
Vital Signs
Temp Pulse Resp BP Pulse Ox
97.7 F 73 20 134/64 95
06/29/23 17:36 06/29/23 18:00 06/29/23 18:00 06/29/23 18:00 06/29/23 18:00
Lab Results:
Laboratory Data
WBC 2.5 10^3/uL (4.8-10.8) L 06/29/23 04:02
Hgb 5.7 g/dL (13.0-18.0) L* 06/29/23 04:02
Plt Count 5 10^3/uL (130-400) L* D 06/29/23 04:02
PT 16.3 Sec (11.4-14.6) H 06/25/23 04:03
INR 1.31 06/25/23 04:03
eGFR 39.02 06/29/23 04:02
Physical Exam
Increased work of breathing
Orders
Orders
Orders From Last 24 Hours
06/29/23 12:40
Morphine Sulfate [Morphine Oral Solution] 10 mg PO [id number] PRN
03/04/24 12:51
Morphine Sulfate [Morphine Oral Solution] 10 mg PO NOW STA
[2023-06-29] MEDS: SODIUM BICARBONATE 650 MG PO (20:11)
--- NOTE | 2023-06-29 20:48 | PTCARENOTE ---
Received pt from [facility]. Pt is AAOx3, [place]. NSR on the monitor. On 3L NC O2 sat 98%, lungs diminished, TERESA and at rest, tachypneic, and orthopneic. Abd round, poor appetite. NS infusing @ 60 ml/hr. Emotional support provided, pt speaking about
hospice and that he is ready. Pt is laying comfortable in bed with call elam in reach.
[2023-06-29] MEDS: NEURONTIN 600 MG PO (21:26)
[2023-06-29] MEDS: PROSCAR 5 MG PO (21:27)
[2023-06-29] MEDS: LIPITOR 20 MG PO (21:27)
[2023-06-29] MEDS: FLOMAX 0.800000000000000044 MG PO (21:27)
[2023-06-29 21:40] LABS: Free Kappa Light Chains,Quant 229.27 mg/L (3.30-19.40); Free Lambda Light Chains,Quant 1176.07 mg/L (5.71-26.30); Kappa/Lambda Fr Light Ratio 0.19 (0.26-1.65)
[2023-06-29] MEDS: ATIVAN 0.5 MG PO (22:27)
[2023-06-30] VITALS: BP 112/63
[2023-06-30 02:00] VITALS: BP 123/58
[2023-06-30 04:00] VITALS: BP 116/53
[2023-06-30 04:44] VITALS: BMI 25.4
[2023-06-30 05:23] LABS: Hematocrit 21.9 % (39.0-52.0); Mean Corp Hgb Conc. 35.2 g/dL (33.0-37.0); Mean Corpuscular Hgb 31.4 pg (27.0-31.0); Mean Corpuscular Volume 89.4 fL (80.0-94.0); Mean Platelet Volume 10.2 fL (7.4-10.4); Nucleated Red Blood Cells % 0 % (-); Red Blood Cell Count 2.45 10^6/uL (4.70-6.10); White Blood Cell Count 2.8 10^3/uL (4.8-10.8)
[2023-06-30 06:00] VITALS: BP 119/56
[2023-06-30 06:08] LABS: Blood Urea Nitrogen 82 mg/dl (9-20); Calcium 6.9 mg/dl (8.4-10.2); Carbon Dioxide 19 mmol/L (22-30); Chloride 111 mmol/L (98-107); Estimated Creatinine Clearance 30 ml/min; Glucose 169 mg/dl (70-99); Phosphorus 7.3 mg/dl (2.5-4.5); Potassium 5.1 mmol/L (3.5-5.1); Sodium 135 mmol/L (135-145); Uric Acid 11.8 mg/dl (3.5-8.5); eGFR 41.96
[2023-06-30 06:32] LABS: Hemoglobin 7.7 g/dL (13.0-18.0)
[2023-06-30 06:33] LABS: Platelet Count 23 10^3/uL (130-400)
[2023-06-30] MEDS: CALCIUM GLUCONATE 100 IV (06:33)
[2023-06-30 07:51] LABS: % Basophils 0.4 % (0-2); % Eosinophils 0.4 % (0-6); % Immature Granulocytes 1.1 % (0-0.5); % Lymphocytes 24.5 % (20.5-51.1); % Monocytes 11.7 % (1.7-9.3); % Neutrophils 61.9 % (42.2-75.2); Absolute Lymphocytes 0.7 10^3/uL (1.2-3.4); Absolute Monocytes 0.3 10^3/uL (0.1-0.6); Absolute Neutrophils 1.8 10^3/uL (1.4-6.5)
[2023-06-30 08:00] VITALS: BP 110/64
--- NOTE | 2023-06-30 08:13 | W.PN.HOSP.TC ---
Today's Communication/Plan
-
Discharge planning today
Assessment / Plan
Assessment / Plan
Physical exam:
General: Acutely ill
HEENT: Normocephalic, Atraumatic and Moist Mucous Membranes but oral plaques
Respiratory: Decreased breath sounds and bilateral crackles; Negative Wheezes or Rhonchi
Cardiac: Regular Rhythm and S1/S2
GI: Soft, Nontender and Nondistended
Musculoskeletal: No Clubbing, No Cyanosis and there is Edema
Neuro: Awake, Alert and Oriented
Psych: Calm
A/P:
Pulmonary Edema / Bilateral Pleural Effusions
Acute HFpEF (EF 6065%)
Acute Hypoxemic Respiratory Insufficiency secondary to the above
-Transition to oral diuretics on 06/24 by cardiology, Lasix 40 mg daily on hold but will resume soon (weight around 160 pounds which is his dry weight)
-Will use as needed Lasix for transfusions
-Repeated chest x-ray on 06/24 mild to moderate bilateral pleural effusions slightly increased and compressive atelectasis. I personally reviewed the chest x-ray today and bilateral effusions more prominent--> ideally we could do thoracentesis
but with his thrombocytopenia we are limited. Lasix 40 m IV x 1 on .
-Updated Na, daughter today on 06/29
Multiple Myeloma
Plasma Cell Leukemia
Pancytopenias
-S/P bone marrow biopsy on ---> per oncology preliminary bone marrow results shows extensive pulm cell population in the bone marrow. Follow-up definitive report.
-Platelets are 23 today
-Hb 7.7 today
-Started on steroids per oncology on 06/25--> will do tapering course of steroids as outpatient
-On 06/24 there has been some refractoriness to transfusions so hematology ordering HLA typed for possible HLA matched platelet if needed.
-Appreciate hematology oncology consultation
-Discussed with hematology oncology today and prognosis poor and recommended hospice
-Discussed with patient, , and daughter Na (patient case manager here). Plan for home hospice today.
Oral mucositis likely chemotherapy related and candidiasis
-Continue Magic wash
-Continue oral nystatin
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
�- SCr = 1.6 compared to baseline / discharge value of 1.1. Today creatinine 1.6
-Holding diuretic and k by myself and will resume in a.m.
-Gentle IV fluid hydration per nephrology today
�- SCr was also 1.6 at the time of prior admission.
�-Avoid nephrotoxic
-Continue monitor renal function closely
-Nephrology consult
Hypocalcemia
-Calcium given and calcium today is 7.1
COPD without Acute Exacerbation on home oxygen. Acute on chronic hypoxic respiratory failure.
-He typically uses 2 L of oxygen but he increased to 5 L prior to admission. He is currently on 4 L. Titrate down as able
�- No wheezing / increased cough but at increased risk of COPD exacerbation. He is on steroids for multiple myeloma and this could help his underlying COPD.
�- Continue inhaled corticosteroid and albuterol PRN.
�- Follow for any changes.
Benign Hypertension
�-Continue low-dose carvedilol to allow for diuresis--> Coreg down from 6.25 to 3.125 mg twice a day
�- Adjust regimen as needed.
BPH
�- Stable.� Continue tamsulosin.
�- DO NOT straight cath if possible given risk of bleeding from severe thrombocytopenia.
DVT Prophylaxis:� SCDs
Code Status:� DNR
Anticipated Discharge: Today
Subjective/Interval History
-
Date of Service: June 30, 2023
No new complaints.
Objective Data
-
Labs:
Laboratory Results
06/30/23
04:52
WBC 2.8 L
Hgb 7.7 L D
Hct 21.9 L
Plt Count 23 L* D
Sodium 135
Potassium 5.1
Chloride 111 H
Carbon Dioxide 19 L
BUN 82 H
Creatinine 1.6 H
Glucose 169 H
Calcium 6.9 L*
Vital Signs:
Vital Signs
Temp Pulse Resp BP Pulse Ox
97.6 F 65 11 119/56 96
06/29/23 22:44 06/30/23 06:00 06/30/23 06:00 06/30/23 06:00 06/30/23 06:00
I&O
06/29/23 06/30/23 07/01/23
06:59 06:59 06:59
Intake Total 1080 / 1080 1550 / 1550
Output Total 1100 / 1100 1260 / 1260
Balance -20 / -20 290 / 290
[2023-06-30] MEDS: COSOPT EYE DROPS 1 DROP BOTH EYES (08:43)
[2023-06-30] MEDS: COREG 3.125 MG PO (08:43)
[2023-06-30] MEDS: SODIUM BICARBONATE 650 MG PO (08:43)
[2023-06-30] MEDS: MYCOSTATIN ORAL SUSPENSION 5 ML PO (08:43)
[2023-06-30] MEDS: ZYLOPRIM 100 MG PO (08:43)
[2023-06-30] MEDS: ZOVIRAX 400 MG PO (08:43)
[2023-06-30] MEDS: ProAmatine 2.5 MG PO (08:43)
[2023-06-30] MEDS: MORPHINE ORAL SOLUTION 10 MG PO (08:56)
--- NOTE | 2023-06-30 09:40 | W.DCSUMMARY ---
Discharge Summary
Discharge Data
Date of Admission: 06/22/23
Date of Discharge: 06/30/23
-
Pending Results: No
Hospital Course
Patient 85 years old male with history of multiple myeloma, CKD, CHF presented to the hospital worsening shortness of breath and worsening hematopoietic cell count. Patient required IV diuresis and multiple blood transfusions and platelet
transfusions. Patient was seen by oncology, cardiology, and nephrology during this hospital stay. Patient cell count continues to deteriorate so bone marrow biopsy was performed and revealed extensive multiple myeloma. Oncology had a elba
discussion about current prognosis and patient opted for hospice care. Arrangements for home hospice are set up for today. He will be discharged to home hospice today.
Discharge duration: 37 minutes
Discharge Plan
-
Patient Disposition: Home with Hospice
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 Oral mucositis and candidiasis. Acute diastolic congestive heart failure. Bilateral pleural effusions. Acute kidney injury on chronic kidney disease.
Hypocalcemia. Chronic obstructive pulmonary disease. Hypertension.
Diet: Regular
Activity: As tolerated
Instructions: *PCP/Other [employer] Heart Failure Instructions
Referrals:
Ady Diaz MD [Family Provider] - in less than 1 week
Prescriptions:
New
furosemide 40 mg Tablet
40 mg PO DAILY 30 Days Qty: 30 0RF
nystatin 100,000 unit/mL Suspension
5 ml PO QID Qty: 60 0RF
midodrine 5 mg Tablet
2.5 mg PO BID@0800,1800 Qty: 60 0RF
allopurinol 100 mg Tablet
100 mg PO BID 30 Days Qty: 60 0RF
carvedilol 3.125 mg Tablet
3.125 mg PO BID 30 Days Qty: 60 0RF
sodium bicarbonate 650 mg Tablet
650 mg PO BID 14 Days Qty: 28 0RF
morphine 10 mg/5 mL Solution
10 mg PO [id number] PRN (Reason: shortness of breath/air hunger) Qty: 100 0RF
prednisone 10 mg Tablet
See Rx Instructions .ROUTE .COMPLEX Qty: 45 0RF
Rx Instructions:
Take By Mouth:
50 mg daily x3 days, 40 mg daily x3 days,
30 mg daily x3 days, 20 mg daily x3 days,
10 mg daily x3 days
Continued
latanoprost 1 DROP drops
1 drp BOTH EYES HS
Patient Comments:
both eyes
tamsulosin 0.4 MG capsule
0.8 mg PO HS
Hold Instructions: Resume on 03/20/23.
polyethylene glycol 3350 17 GRAMS powder in packet
17 grams PO DAILYPRN PRN (Reason: constipation)
finasteride 5 MG tablet
5 mg PO HS
docusate sodium 100 MG capsule
100 mg PO BIDPRN PRN (Reason: constipation)
simvastatin 40 MG tablet
20 mg PO HS
acyclovir 400 mg tablet
400 mg PO BID
lorazepam 0.5 mg tablet
0.5 mg PO HS
Patient Comments:
06/08/2023: last filled 05/18/23, 60 tabs for 30 days from [facility]#[id number]
gabapentin 300 mg capsule
600 mg PO HS
dorzolamide-timolol 22.3-6.8 mg/mL drops
1 drp BOTH EYES BID
montelukast 10 mg tablet
10 mg PO USEASDIRECTD
Rx Instructions:
TAKE 1 TABLET THE NIGHT BEFORE, THE NIGHT OF, AND THE NIGHT AFTER EACH CHEMO TREATMENT
acetaminophen 325 mg Tablet
650 mg PO Q4HPRN PRN (Reason: mild pain/fever)
fluticasone propion-salmeterol [Advair Diskus] 250-50 mcg/dose Blister With Device
1 inh INHALATION R BID
pantoprazole [Protonix] 40 mg tablet,delayed release (DR/EC)
40 mg PO DAILY@1700
Discontinued
carvedilol 6.25 mg Tablet
6.25 mg PO BID
furosemide 40 mg tablet
20 mg PO DAILY PRN (Reason: swelling)
dexamethasone 4 mg tablet
4 mg PO . DIRECTED
Rx Instructions:
Take 4-5 tabs (16-20mg) once before chemo
pomalidomide 2 mg Capsule
2 mg PO DAILY
tramadol 50 mg Tablet
50 mg PO BIDPRN PRN (Reason: Pain)
daratumumab 20 mg/mL Solution
1,800 mg IV MONTHLY
Discharge Orders:
Discharge Patient (As Directed); Ordered 06/30/23
Ordered By: Alvaro Tee
Discharge Date and Time
Discharge Date/Time: 06/30/23 12:53
[2023-06-30 10:00] VITALS: BP 123/62
--- NOTE | 2023-06-30 10:05 | CM ---
CM met with pt and dtr/Na bedside
Plan for home to day with Hospice
IMM verbally reviewed- declined copy
Medical necessity and transport form on chart
DNR on chart as well and will require attending signature
Discharge Disposition- home with Hospice via ambulance (1200 pickup)
--- NOTE | 2023-06-30 10:37 | PTCARENOTE ---
Assumed care of patient at beginning of this shift from previous RN. Patient for discharge home to hospice; 12 noon pickup. Confirmed with cm, sales assoc and patient's daughter that all necessary equipment is in the home. Dr Tee up to see patient
and sign out of hospital DNR. Morphine given this morning for increased SOB with relief. Remains 96% on 3L n/c. See worklist for full assessment and vital signs; see MAR for med administration.
[2023-07-01 10:07] LABS: Albumin 2.87 g/dL (3.75-5.01); Alpha 1 Globulin 0.34 g/dL (0.19-0.46); Alpha 2 Globulin 0.55 g/dL (0.48-1.05); Monoclonal Protein 1.83 g/dL (<=0.00); SPEP IFE Reflex IFE Done; Total Protein-Electrophoresis 6.1 g/dL (6.3-8.2)
[2023-07-01 10:26] LABS: IgG 2038 mg/dL (768-1632)
[2023-07-01 11:16] LABS: IgA 10 mg/dL (68-408); IgM 12 mg/dL (35-263)
== END 2023-06-30 12:53 | disposition hospice, home (50) | DRG 840 ==
LOC: IMU 02:11
PROVIDERS: Internal Medicine Hematology & Oncology; Nurse Practitioner Family; Nurse Practitioner Primary Care; Radiology Diagnostic Radiology; Radiology Vascular & Interventional Radiology; ADMITTING PHYSICIAN Hospitalist; ATTENDING PHYSICIAN Hospitalist; CONSULT PHYSICIAN Specialist; EMERGENCY PHYSICIAN Emergency Medicine; FAMILY PHYSICIAN Family Medicine; OTHER PHYSICIAN Internal Medicine Cardiovascular Disease; OTHER PHYSICIAN Internal Medicine Hematology & Oncology
PROC: 30233N1 Transfusion of Nonautologous Red Blood Cells into Peripheral Vein, Percutaneous Approach (ICD-10-PCS; 2023-06-22)
PROC: 30233R1 Transfusion of Nonautologous Platelets into Peripheral Vein, Percutaneous Approach (ICD-10-PCS; 2023-06-22)
PROC: 079T3ZX Drainage of Bone Marrow, Percutaneous Approach, Diagnostic (ICD-10-PCS; 2023-06-25)
DX: C90.10 Plasma cell leukemia not having achieved remission (principal); I50.33 Acute on chronic diastolic (congestive) heart failure; J96.21 Acute and chronic respiratory failure with hypoxia; I13.0 Hypertensive heart and chronic kidney disease with heart failure and stage 1 through stage 4 chronic kidney disease, or unspecified chronic kidney disease; D61.818 Other pancytopenia; N17.9 Acute kidney failure, unspecified; C90.12 Plasma cell leukemia in relapse; C90.00 Multiple myeloma not having achieved remission; Z87.891 Personal history of nicotine dependence; E83.51 Hypocalcemia; E87.6 Hypokalemia; N18.31 Chronic kidney disease, stage 3a; N40.0 Benign prostatic hyperplasia without lower urinary tract symptoms; Z66 Do not resuscitate; J43.9 Emphysema, unspecified; K12.30 Oral mucositis (ulcerative), unspecified; Z51.5 Encounter for palliative care
CPT/HCPCS: 88305; 88311; 88312; 38222; 71045; 71046; 77012; 80048; 80053; 81003; 81373; 82330; 82570; 82784; 83010; 83521; 83605; 83615; 83735; 83880; 84100; 84155; 84156; 84165; 84300; 84484; 84550; 85025; 85027; 85610; 86850; 86870; 86900; 86901; 86902; 86920; 86922; 87045; 87046; 87324; 87427; 87449; 88313; 88341; 88342; 89055; 93005; 94640; 96374; 96375; 97163; 97167; 99291; P9016; P9052; P9073